=== PATIENT | male | born 1960 | race African-American/Black ===

== ENCOUNTER 2020-05-02 08:35 | Outpatient (REF) | payer OTHER, SELFPAY | END 2020-05-02 08:36 | disposition home or self-care (01) | LOC: HO.HMGCLDS 08:35 | PROVIDERS: Visit Provider Internal Medicine | DX: Z20.828 Contact with and (suspected) exposure to other viral communicable diseases (principal) | CPT/HCPCS: C9803; U0003 ==

== ENCOUNTER 2020-07-27 08:19 | Outpatient (REF) | payer OTHER, SELFPAY ==
[2020-07-27 09:25] LABS: MANUAL DIFF FLAG NO
[2020-07-27 09:33] LABS: Basophils Percent Auto 0.3 % (0-2); Eosinophils Absolute Auto 0.1 X10*3/uL (0.0-0.4); Eosinophils Percent Auto 1.5 % (0-4); Hematocrit 38.4 % (42-52); Hemoglobin 12.9 g/dl (14.0-18.0); Imm Gran Abs Auto 0.01 X10*3/uL (0.00-0.03); Imm Gran Pct Auto 0.2 % (0.0-0.4); Lymphocytes Absolute Auto 2.6 X10*3/uL (1.2-4.9); Lymphocytes Percent Auto 41.6 % (20-40); Mean Corpuscular HGB Conc 33.6 g/dl (31.0-36.0); Mean Corpuscular Hemoglobin 27.3 pg (27.0-33.0); Mean Corpuscular Volume 81.2 fL (80-98); Mean Platelet Volume 10.8 fL (9.4-12.4); Monocytes Absolute Auto 0.5 X10*3/uL (0.1-1.2); Monocytes Percent Auto 8.7 % (2-11); Neutrophils Percent Auto 47.7 % (45-73); Platelet Count 207 X10*3/uL (160-400); Red Blood Count 4.73 X10*6/uL (4.60-5.80); Red Cell Distribution Width 13.9 % (11.0-16.0); White Blood Count 6.2 X10*3/uL (4.8-10.8)
[2020-07-27 09:42] LABS: Estimated Average Glucose 298 mg/dL
[2020-07-27 09:57] LABS: Anion Gap 12 (12-20); Blood Urea Nitrogen 15 mg/dL (9-16); Carbon Dioxide 29 mmol/L (22-29); Chloride 101 mmol/L (96-108); Estimated Glomerular Filt Rate 54; Glucose Fasting 293 mg/dL (60-99); Potassium 4.1 mmol/L (3.3-5.1); Sodium 138 mmol/L (135-145)
[2020-07-27 10:23] LABS: Creatinine Urine 147.97 mg/dL
== END 2020-07-27 08:20 | disposition home or self-care (01) ==
LOC: HO.LAB 08:19
PROVIDERS: PCP Family Medicine; Visit Provider Family Medicine
DX: I10 Essential (primary) hypertension (principal); E11.9 Type 2 diabetes mellitus without complications; D57.3 Sickle-cell trait; D75.89 Other specified diseases of blood and blood-forming organs
CPT/HCPCS: 36415; 80051; 82043; 82550; 82565; 82947; 83036; 84520; 85025

== ENCOUNTER 2020-09-06 05:57 | Outpatient (REF) | payer OTHER, SELFPAY ==
[2020-09-06 08:00] LABS: Estimated Average Glucose 258 mg/dL; Hemoglobin A1c % 10.6 %
[2020-09-06 08:23] LABS: Cholesterol 173 mg/dL; Glucose Fasting 152 mg/dL (60-99); HDL Cholesterol 29 mg/dL; LDL Cholesterol Calculated 121 mg/dl; Triglycerides 117 mg/dL
== END 2020-09-06 05:58 | disposition home or self-care (01) ==
LOC: HO.LAB 05:57
PROVIDERS: PCP Family Medicine; Visit Provider Family Medicine
DX: E11.9 Type 2 diabetes mellitus without complications (principal); E78.00 Pure hypercholesterolemia, unspecified
CPT/HCPCS: 36415; 80061; 82947; 83036

== ENCOUNTER 2020-10-28 07:07 | Emergency (ER) | payer OTHER, SELFPAY ==
--- NOTE | ~2020-10-28 | US_ITS ---
EXAMINATION: US SOFT TISSUE AXILLA CLINICAL INFORMATION: Right axilla mass. COMPARISON: None TECHNIQUE: Horowitz-scale and color imaging of the right axilla. FINDINGS: There are several right axillary lymph nodes. These are normal in size. The largest measures 2.3 x 1.2 x 1.4 cm. These demonstrate normal ultrasound morphology and flow. US/US soft tiss head and/or neck IMPRESSION: Palpable abnormality corresponds to right axillary lymphadenopathy.
[2020-10-28 07:43] VITALS: BP 143/70; PULSE 68; RESP 18; TEMP 36.6; O2SAT 99; BMI 33.0
--- NOTE | 2020-10-28 07:53 | ED.GENADULT ---
HPI - General Adult General Chief complaint: Skin/Abscess/Foreign Body Stated complaint: ARM PAIN,RASH Time Seen by Provider: 10/28/20 07:46 Source: patient Mode of arrival: ambulatory Limitations: no limitations History of Present Illness HPI narrative: 60 years old male came in for evaluation of right armpit swelling and pain. Swelling and pain in his right armpit started yesterday, patient woke up this morning with a rash on the right arm and right chest wall and right upper back dose rash are itchy but not painful. Patient otherwise declined fever, chills, headache, blurry vision. Related Data Previous Rx's Medication Instructions Recorded gabapentin 100 mg PO TID #14 cap 10/28/20 prednisone 20 mg PO BID #10 tab 10/28/20 valacyclovir [Valtrex] 1,000 mg PO TID #21 tab 10/28/20 Allergies Allergy/AdvReac Type Severity Reaction Status Date / Time No Known Allergies Allergy Verified 10/28/20 07:47 Review of Systems Review of Systems: All other systems are reviewed and are negative Constitutional: Reports as per HPI and Reports no additional constitutional complaints Eyes: Reports as per HPI and Reports no additional eye complaints Reports system reviewed and no additional complaints, except as documented Cardiovascular: Reports as per HPI and Reports no additional cardiovascular complaints Respiratory: Reports as per HPI and Reports no additional respiratory complaints Gastrointestinal: Reports as per HPI and Reports no additional gastrointestinal complaints Genitourinary: Reports no additional female genitourinary complaints Musculoskeletal: Reports no additional musculoskeletal complaints Skin/Breast: Reports system reviewed and no additional complaints, except as docu Psychiatric: Reports no additional psychiatric complaints Endocrine: Reports no additional endocrine complaints Hematologic/Lymphatic: Reports no additional hematologic/lymphatic complaints Allergic/Immunologic: Reports no additional allergic/immunologic complaints Reports system reviewed and no additional complaints, except as documented and Reports Abnormal speech present [facility] Social History Social History Advance Directives: No Advance Directives Information Provided: No Physical Exam Vital Signs: Vital Signs: Last Vital Signs Temp 97.9 F 10/28/20 07:43 Pulse 58 10/28/20 10:00 Resp 18 10/28/20 10:00 BP 134/75 10/28/20 10:00 Pulse Ox 98 10/28/20 10:00 Body Mass Index 33.0 Vital signs have been reviewed as appeared to be correct. Blood pressure normal. Heart rate normal. Respiration rate normal. Temperature normal. Oxygen saturation normal. Appearance: Alert. Oriented X3. No acute distress. Head: Normal external exam. Normocephalic. Atraumatic. No Ashley signs noted. No raccoon eyes noted Eyes: PERRLA. EOMI. Conjunctiva and sclera normal. Eyelids normal. ENT: TM's Normal. Pharynx normal. Uvula midline. Moist mucous membranes. No trismus noted. No drooling noted. No muffled voice noted. Neck: Normal inspection. Neck supple. FROM. No adenopathy. Thyroid Normal. No meningeal signs. No neck mass noted. CVS: Normal heart rate and rhythm. Heart sound normal. No murmurs noted. Pulses normal throughout. Respiratory: No respiratory distress. Painless inspiration. Breath sounds normal. No wheezes/rales/rhonchi noted. Chest nontender. No accessory muscle usage noted or decreased air movement noted. Abdomen: Soft and nontender. Bowel sounds normal in all 4 quadrants. No distention noted. No organomegaly noted. No visible injury noted. Back: No CVA tenderness. Full range of motion noted. Skin: Clusters of small maculopapular/vescicular rash is only confined to right chest wall do not cross the midline on the right arm and right upper back, rashes on erythematous base. Extremities: Right arm pit area 2 x 3 cm of subcutaneous mass which is soft in consistency, no fluctuation is appreciated skin over it no erythema or drainage, no foreign body is palpated. Neuro: Oriented X 3. No motor deficit. No sensory deficit. Reflexes normal. Course Course Course Narrative: A/P 60-year-old male diabetic came in with physical exam consistent with shingles on right chest wall symptoms started less than a day ago the patient will benefit from antiviral infection, prednisone, and gabapentin to control pain. Patient was instructed to follow up his sugar and blood pressure while he is on prednisone. Medical Decision Making Imaging Data Right axillary ultrasound: Radiologist's impression: Palpable abnormality corresponds to right axillary lymphadenopathy. Discharge Plan Discharge Clinical Impression: Shingles rash Qualifiers: Herpes zoster complications: without complications Qualified Code(s): B02.9 - Zoster without complications Patient Disposition: Home, Self-Care Instructions: Shingles (ED) Prescriptions: New valacyclovir [Valtrex] 1 gram tablet 1,000 mg PO TID Qty: 21 RF: 0 gabapentin 100 mg capsule 100 mg PO TID Qty: 14 RF: 0 prednisone 20 mg tablet 20 mg PO BID Qty: 10 RF: 0 Referrals: Gage Wynn MD [Primary Care Provider] - 2 days Stand Alone Forms: Work/School Release
[2020-10-28 10:00] VITALS: BP 134/75; PULSE 58; RESP 18; O2SAT 98
== END 2020-10-28 12:57 | disposition home or self-care (01) ==
PROVIDERS: Emergency Provider Emergency Medicine; PCP Family Medicine
DX: B02.9 Zoster without complications (principal); M79.621 Pain in right upper arm; R22.31 Localized swelling, mass and lump, right upper limb; E11.9 Type 2 diabetes mellitus without complications
CPT/HCPCS: 76536; 99283; 99284

== ENCOUNTER 2020-12-21 12:34 | Outpatient (REF) | payer OTHER, SELFPAY ==
[2020-12-21 14:40] LABS: Estimated Average Glucose 169 mg/dL; Hemoglobin A1c % 7.5 %
[2020-12-21 14:49] LABS: Anion Gap 13 (12-20); Blood Urea Nitrogen 13 mg/dL (9-16); Carbon Dioxide 27 mmol/L (22-29); Chloride 106 mmol/L (96-108); Estimated Glomerular Filt Rate 58; Glucose Fasting 111 mg/dL (60-99); Potassium 4.3 mmol/L (3.3-5.1); Sodium 142 mmol/L (135-145)
== END 2020-12-21 12:35 | disposition home or self-care (01) ==
LOC: HO.HMGCLDS 12:34
PROVIDERS: PCP Family Medicine; Visit Provider Family Medicine
DX: E11.9 Type 2 diabetes mellitus without complications (principal); I10 Essential (primary) hypertension
CPT/HCPCS: 36415; 80051; 82565; 82947; 83036; 84520

== ENCOUNTER 2021-06-27 09:44 | Outpatient (REF) | payer OTHER, SELFPAY ==
[2021-06-27 10:44] LABS: Binax Internal Control QC Valid; Binax Lot number: 9864; Binax Now Covid-19 Ag Negative (Negative)
== END 2021-06-27 09:45 | disposition home or self-care (01) ==
LOC: HO.LAB 09:44
PROVIDERS: Visit Provider Internal Medicine
DX: Z20.822 Contact with and (suspected) exposure to COVID-19 (principal)
CPT/HCPCS: C9803

== ENCOUNTER 2021-07-05 08:05 | Outpatient (REF) | payer OTHER, SELFPAY ==
[2021-07-05 08:29] LABS: MANUAL DIFF FLAG NO
[2021-07-05 08:30] LABS: Basophils Percent Auto 0.3 % (0-2); Eosinophils Absolute Auto 0.1 X10*3/uL (0.0-0.4); Eosinophils Percent Auto 1.5 % (0-4); Hematocrit 38.5 % (42.0-52.0); Hemoglobin 12.9 g/dl (14.0-18.0); Imm Gran Abs Auto 0.01 X10*3/uL (0.00-0.03); Imm Gran Pct Auto 0.1 % (0.0-0.4); Lymphocytes Absolute Auto 2.9 X10*3/uL (1.2-4.9); Lymphocytes Percent Auto 43.3 % (20-40); Mean Corpuscular HGB Conc 33.5 g/dl (31.0-36.0); Mean Corpuscular Hemoglobin 27.3 pg (27.0-33.0); Mean Corpuscular Volume 81.6 fL (80.0-98.0); Mean Platelet Volume 10.2 fL (9.4-12.4); Monocytes Absolute Auto 0.5 X10*3/uL (0.1-1.2); Monocytes Percent Auto 7.3 % (2-11); Neutrophils Absolute Auto 3.2 x10*3/uL (2.0-8.3); Neutrophils Percent Auto 47.5 % (45-73); Platelet Count 182 X10*3/uL (160-400); Red Blood Count 4.72 X10*6/uL (4.60-5.80); Red Cell Distribution Width 14.4 % (11.0-16.0); White Blood Count 6.7 X10*3/uL (4.8-10.8)
[2021-07-05 08:49] LABS: Anion Gap 11 (12-20); Blood Urea Nitrogen 13 mg/dL (9-16); Carbon Dioxide 27 mmol/L (22-29); Chloride 104 mmol/L (96-108); Estimated Glomerular Filt Rate 51; Glucose Fasting 228 mg/dL (60-99); Potassium 4.1 mmol/L (3.3-5.1); Sodium 138 mmol/L (135-145)
[2021-07-05 08:51] LABS: Estimated Average Glucose 214 mg/dL; Hemoglobin A1c % 9.1 %
== END 2021-07-05 08:06 | disposition home or self-care (01) ==
LOC: HO.LAB 08:05
PROVIDERS: Visit Provider Family Medicine
DX: I10 Essential (primary) hypertension (principal); E11.9 Type 2 diabetes mellitus without complications; D57.3 Sickle-cell trait
CPT/HCPCS: 36415; 80051; 82565; 82947; 83036; 84520; 85025

== ENCOUNTER 2021-07-09 10:18 | Outpatient (REF) | payer OTHER, SELFPAY ==
--- NOTE | ~2021-07-09 | XR_ITS ---
EXAMINATION: XR CHEST CLINICAL INFORMATION: SOB COMPARISON: None TECHNIQUE: 2 views of the chest were obtained. FINDINGS: No significant abnormality is noted involving the heart, lungs, mediastinum, bony thorax or soft tissues. XR/XR chest 2V IMPRESSION: Unremarkable chest examination.
== END 2021-07-09 10:19 | disposition home or self-care (01) ==
LOC: HO.XRAY 10:18
PROVIDERS: PCP Family Medicine; Visit Provider Internal Medicine
DX: R06.02 Shortness of breath (principal); E11.8 Type 2 diabetes mellitus with unspecified complications; I10 Essential (primary) hypertension; Z79.899 Other long term (current) drug therapy; Z79.84 Long term (current) use of oral hypoglycemic drugs
CPT/HCPCS: 71046; 93005

== ENCOUNTER → 2021-09-08 07:12 | Outpatient (REF) | payer OTHER, SELFPAY ==
--- NOTE | ~2021-09-08 | NM_ITS ---
EXERCISE MYOCARDIAL PERFUSION STUDY INDICATION: Chest pain, assess for coronary disease and ischemia TECHNIQUE: The patient was brought in for an exercise perfusion study on 09/08/2021. Patient performed exercise as per Raphael protocol and was injected 35 mCi of sestamibi once target heart rate was achieved. Images were obtained using the SPECT gamma camera interlaced with the gating device. Images were obtained in supine position. Resting perfusion study was performed on 09/10/2021. Patient was administered 35 mCi of sestamibi intravenously at rest. Images were then obtained in supine position. Total DLP 95mGy-cm. Images were processed with the software and compared side to side in short axis, horizontal long axis and vertical long axis views. FINDINGS: Raw images were reviewed. The stress perfusion study showed no significant perfusion abnormality. Both uncorrected as well as CT attenuation corrected images were reviewed. The gated study shows normal LV systolic function with calculated LVEF of 57%. LV cavity is normal in size. The gated study shows normal wall thickening and contraction of segments. Resting study shows no significant perfusion abnormality. Gating at rest reveals normal wall motion with ejection fraction at 59%. The findings are consistent with no definite reversible or fixed defects. NM/NM cardiolite stress test IMPRESSION: 1. Myocardial perfusion imaging study shows no evidence of any ischemia or infarction. Likely normal perfusion. 2. Gated LVEF is 57% during stress and 59% during rest. 3. Transient ischemic dilatation not present. EKG component of the test reported separately.
--- NOTE | 2021-09-08 07:16 | CA_ITS ---
Transthoracic Echocardiogram Patient (Last, First, Middle): Maycol Gracia L Gender: Male Date of : 1960 Age: 61 Procedure Date: 09/08/2021 Procedure Type: Transthoracic Echocardiogram Location: OP Height: 177.8 cm Weight: 102.51 kg BSA: 2.20 m2 Heart Rate: bpm BP: 122 / 60 mmHg Slumber Room Attendant: Referring MD: Hector Hightower MD Symptoms: R06.02 - Shortness of breath Study Quality: Fair ECG Rhythm: Sinus Conclusions: - The left ventricular systolic function is normal. The calculated ejection fraction is 58% by biplane method. - There is moderately increased left ventricular wall thickness. - The basal inferior segment is hypokinetic. - There is mild calcification of the aortic valve. Findings Left Ventricle Normal left ventricular cavity size. There is moderately increased left ventricular wall thickness. The left ventricular systolic function is normal. The calculated ejection fraction is 58% by biplane method. There is no evidence of regional wall motion abnormalities. Diastolic function is normal for age. Wall Motion Rest Echo Findings The basal inferior segment is hypokinetic. Atria Both atria are normal in size. Aortic Valve There is mild calcification of the aortic valve. There is no aortic valve stenosis. There is no aortic valve regurgitation. Cannot exclude bicuspid valve vs just calcification. Mitral Valve The mitral valve appears normal. There is no mitral valve regurgitation. There is no mitral valve stenosis. Pulmonic Valve The pulmonic valve was not well visualized. Tricuspid Valve Normal tricuspid valve structure. There is trace tricuspid valve regurgitation. The pulmonary artery systolic pressure is normal. Great Vessels The sinuses of valsalva, asc aorta, and aortic arch are normal in size. Venous The inferior vena cava is normal in size. There is evidence of a dilated coronary sinus. Pericardium/Pleural There is no evidence of pericardial effusion. Prior Study Comparison Changes noted compared to prior study dated: 09/16/2017. Progression of LVH. Aortic valve trileaflet in prior study. Inferior wall better visualized in current study. Measurements 2D Linear Measurements IVSd: 1.41 0.6-0.9/0.6-1.0 cm LVIDd: 3.97 3.9-5.3/4.2-5.9 cm LVIDd Index: 1.80 2.4-3.2/2.2-3.1 cm/m2 LVIDs: 2.48 2.0-3.6 cm LVPWd: 1.37 0.7-1.1 cm Ao Root: 3.00 2.1-3.5 cm LA Diam: 4.10 2.7-3.8/3.0-4.0 cm LAIDs Index: 1.86 1.5-2.3 cm/m2 LV Mass: 254.78 67-162/88-224 g LV Mass Index: 115.81 43-95/49-115 g/m2 LVOT Diam: 2.20 3.0+(-)1.3 cm 2D Systolic Function EF 4C: 52.30 >55% EF 2C: 63.50 >55% EF BiP: 58.10 >55% Mitral Valve MV Pk E: 0.63 MV PK A: 0.72 MV Decel Time: 177.00 E/A: 0.90 E'Lateral: 7.40 E'Medial: 8.05 E/E' Med: 7.80 E/E' Lat: 8.50 PHT: 52.00 MVA PHT: 4.23 Decel Rawlins: 3.55 Aortic Valve AoV Pk Wallace: 1.72 AoV Mn Wallace: 1.21 AoV VTI: 0.40 AoV Pk Grad: 12.00 Aov Mn Grad: 7.00 ALMA Cont.VTI: 2.30 LVOT LVOT Pk Wallace: 1.07 LVOT Mn Wallace: 0.72 LVOT VTI: 0.24 LVOT Pk Grad: 5.00 LVOT Mn Grad: 2.00 LVOT Diam: 2.20 LVOT Area: 3.80 Diastolic Function MV Pk E: 0.63 MV Pk A: 0.72 E/A: 0.90 E'Medial: 8.05 E/E' Med: 7.80 E' Laterial: 7.40 E/E' Lat: 8.50 Right Ventricle TAPSE (mm): 2.80 TVS' Walalce: 11.50 Tricuspid Valve TR Pk Wallace: 1.77 TR Pk Grad: 13.00 RA Press: 3.00 RVSP: 15.00 Great Vessels Aorta Ao Root-2D: 3.00 2.0-3.7 cm Sinus of Valsalva: 2.80 2.0-3.5 cm Pulmonary Valve PV Pk Wallace: 0.95 Peak PV Grad: 4.00 Updated in Other Vendor System with Status of Final Hector Hightower MD electronically signed on 09/08/2021 11:03:56 AM with status of Final
--- NOTE | 2021-09-08 07:16 | CA_ITS ---
Acquisition Time: 2021-09-08 08:23:16 Total Exercise Time: 00:05:01 Test Indications: CP, SOB Medications: SEE CHART Protocol: ALBA Max HR: 148 BPM 91% of Pred: 161 BPM Max BP: 148/088 mmHG Max Work Load: 7.0 METS Exercise stress test with exercise 5 min 1 sec of Alba protocol, achieving 91% MPHR, 6.9 METs with moderate shortness of breath, no chest discomfort, with frequent PVCs in stage 2 of exercise, with normotensive response to exercise, with EKG changes meeting criteria for ischemia: at least [address] depression inferiorly, V4-V6, then with T wave inversions in those leads in recovery with gradual improvement. Breathing quickly improved with rest. Nuclear images pending. Test reviewed with Dr Hightower. Referred By: Hector Hightower Overread By: CALEB COCHRAN
== END ==
LOC: HO.CARD 07:12
PROVIDERS: Visit Provider Internal Medicine
DX: R06.02 Shortness of breath (principal)
CPT/HCPCS: 78452; 93017; 93306; A9500

== ENCOUNTER → 2021-09-18 08:06 | Outpatient (BNVA) | payer OTHER, SELFPAY | PROVIDERS: PCP Family Medicine; Referring Provider Family Medicine; Visit Provider Internal Medicine | DX: Z13.89 Encounter for screening for other disorder (principal) ==

== ENCOUNTER 2021-11-21 06:02 | Outpatient (REF) | payer OTHER, SELFPAY ==
[2021-11-21 07:51] LABS: Anion Gap 12 (12-20); Blood Urea Nitrogen 17 mg/dL (9-16); Calcium 9.6 mg/dL (8.4-10.2); Carbon Dioxide 27 mmol/L (22-29); Chloride 103 mmol/L (96-108); Estimated Glomerular Filt Rate 49; Glucose Random 245 mg/dL (60-115); Potassium 4.2 mmol/L (3.3-5.1); Sodium 138 mmol/L (135-145)
[2021-11-21 07:56] LABS: Creatinine Urine 169.32 mg/dL; Estimated Average Glucose 214 mg/dL; Hemoglobin A1c % 9.1 %; Microalbumin Urine < 5.0 mg/L
== END 2021-11-21 06:03 | disposition home or self-care (01) ==
LOC: HO.LAB 06:02
PROVIDERS: Absent Provider Internal Medicine; PCP Family Medicine; Visit Provider Family Medicine
DX: I25.10 Atherosclerotic heart disease of native coronary artery without angina pectoris (principal); I10 Essential (primary) hypertension; E11.9 Type 2 diabetes mellitus without complications
CPT/HCPCS: 36415; 80048; 82043; 83036

== ENCOUNTER 2022-03-11 06:00 | Outpatient (REF) | payer OTHER, SELFPAY ==
[2022-03-11 07:45] LABS: Estimated Average Glucose 180 mg/dL; Hemoglobin A1c % 7.9 %
[2022-03-11 07:57] LABS: Alanine Aminotransferase 29 U/L (0-40); Anion Gap 15 (12-20); Aspartate Amino Transferase 23 U/L (5-37); Blood Urea Nitrogen 15 mg/dL (9-16); Carbon Dioxide 26 mmol/L (22-29); Chloride 102 mmol/L (96-108); Estimated Glomerular Filt Rate 53; Glucose Fasting 175 mg/dL (60-99); Iron 71 mcg/dL (45-160); Percent Iron Saturation 22 % (15-50); Potassium 4.5 mmol/L (3.3-5.1); Sodium 138 mmol/L (135-145); Total Iron Binding Capacity 325 mcg/dL (228-428); Unsaturated Iron Binding 254 ug/dL
== END 2022-03-11 06:01 | disposition home or self-care (01) ==
LOC: HO.LAB 06:00
PROVIDERS: PCP Family Medicine; Visit Provider Family Medicine
DX: I10 Essential (primary) hypertension (principal); K75.81 Nonalcoholic steatohepatitis (NASH); D64.9 Anemia, unspecified; E11.9 Type 2 diabetes mellitus without complications; R79.89 Other specified abnormal findings of blood chemistry
CPT/HCPCS: 36415; 80051; 82550; 82565; 82947; 83036; 83540; 84450; 84460; 84520

== ENCOUNTER 2022-06-30 09:42 | Outpatient (REF) | payer OTHER, SELFPAY ==
[2022-06-30 13:50] LABS: Alanine Aminotransferase 32 U/L (0-40); Anion Gap 12 (12-20); Blood Urea Nitrogen 17 mg/dL (9-16); Carbon Dioxide 28 mmol/L (22-29); Chloride 101 mmol/L (96-108); Estimated Glomerular Filt Rate 52; Glucose Fasting 288 mg/dL (60-99); Potassium 4.2 mmol/L (3.3-5.1); Sodium 137 mmol/L (135-145)
== END 2022-06-30 09:43 | disposition home or self-care (01) ==
LOC: HO.HMGCLDS 09:42
PROVIDERS: PCP Family Medicine; Visit Provider Family Medicine
DX: Z13.89 Encounter for screening for other disorder (principal)
CPT/HCPCS: 36415; 80051; 82550; 82565; 82947; 84460; 84520

== ENCOUNTER → 2022-07-14 14:15 | Outpatient (BNVA) | payer OTHER, SELFPAY | PROVIDERS: PCP Family Medicine; Referring Provider Family Medicine; Visit Provider Internal Medicine | DX: I25.10 Atherosclerotic heart disease of native coronary artery without angina pectoris (principal) | CPT/HCPCS: 93005 ==

== ENCOUNTER 2022-08-10 14:29 | Outpatient (REF) | payer OTHER, SELFPAY ==
[2022-08-10 16:01] LABS: Hematocrit 37.2 % (42.0-52.0); Hemoglobin 12.6 g/dl (14.0-18.0); Mean Corpuscular HGB Conc 33.9 g/dl (31.0-36.0); Mean Corpuscular Hemoglobin 27.6 pg (27.0-33.0); Mean Corpuscular Volume 81.6 fL (80.0-98.0); Mean Platelet Volume 10.8 fL (9.4-12.4); Platelet Count 201 X10*3/uL (160-400); Red Blood Count 4.56 X10*6/uL (4.60-5.80); Red Cell Distribution Width 14.3 % (11.0-16.0); White Blood Count 6.5 X10*3/uL (4.8-10.8)
[2022-08-10 16:06] LABS: INTERNATIONAL NORM RATIO 1.1 (0.9-1.1); Prothrombin Time 12.3 SEC (10.0-13.1)
[2022-08-10 16:24] LABS: Anion Gap 12 (12-20); Blood Urea Nitrogen 17 mg/dL (9-16); Calcium 9.3 mg/dL (8.4-10.2); Carbon Dioxide 29 mmol/L (22-29); Chloride 101 mmol/L (96-108); Estimated Glomerular Filt Rate 47; Glucose Random 225 mg/dL (60-115); Sodium 138 mmol/L (135-145)
== END 2022-08-10 14:30 | disposition home or self-care (01) ==
LOC: HO.LAB 14:29
PROVIDERS: PCP Family Medicine; Visit Provider Internal Medicine
DX: I25.10 Atherosclerotic heart disease of native coronary artery without angina pectoris (principal)
CPT/HCPCS: 36415; 80048; 85027; 85610

== ENCOUNTER → 2022-08-28 13:36 | Outpatient (BNVA) | payer OTHER, SELFPAY | PROVIDERS: PCP Family Medicine; Referring Provider Family Medicine; Visit Provider Nurse Practitioner Family | DX: Z13.89 Encounter for screening for other disorder (principal) ==

== ENCOUNTER → 2022-11-17 14:21 | Outpatient (BNVA) | payer OTHER, SELFPAY | PROVIDERS: PCP Family Medicine; Referring Provider Family Medicine; Visit Provider Internal Medicine ==

== ENCOUNTER 2022-12-03 06:06 | Outpatient (REF) | payer OTHER, SELFPAY ==
[2022-12-03 08:07] LABS: Alanine Aminotransferase 24 U/L (0-40); Aspartate Amino Transferase 22 U/L (5-37); Cholesterol 109 mg/dL; Glucose Fasting 242 mg/dL (60-99); HDL Cholesterol 26 mg/dL; LDL Cholesterol Calculated 63 mg/dl; Triglycerides 103 mg/dL
[2022-12-03 08:12] LABS: Creatinine Urine 163.93 mg/dL; Microalbumin Urine < 5.0 mg/L
[2022-12-03 10:43] LABS: Estimated Average Glucose 206 mg/dL; Hemoglobin A1c % 8.8 %
== END 2022-12-03 06:07 | disposition home or self-care (01) ==
LOC: HO.LAB 06:06
PROVIDERS: PCP Family Medicine; Visit Provider Family Medicine
DX: E11.9 Type 2 diabetes mellitus without complications (principal); E78.00 Pure hypercholesterolemia, unspecified; Z79.899 Other long term (current) drug therapy
CPT/HCPCS: 36415; 80061; 82043; 82550; 82947; 83036; 84450; 84460

== ENCOUNTER 2023-02-13 06:58 | Outpatient (REF) | payer OTHER, SELFPAY ==
[2023-02-13 08:05] LABS: Estimated Average Glucose 177 mg/dL; Hemoglobin A1c % 7.8 % (<6.0)
[2023-02-13 08:26] LABS: Anion Gap 14 (12-20); Blood Urea Nitrogen 19 mg/dL (9-16); Carbon Dioxide 24 mmol/L (22-29); Chloride 107 mmol/L (96-108); Cholesterol 121 mg/dL (<200); Estimated Glomerular Filt Rate 57; Glucose Fasting 153 mg/dL (60-99); HDL Cholesterol 30 mg/dL (>40); LDL Cholesterol Calculated 76 mg/dL (<100); Potassium 3.9 mmol/L (3.3-5.1); Sodium 141 mmol/L (135-145); Triglycerides 76 mg/dL (<150)
[2023-02-13 08:50] LABS: Erythrocyte Sedimentation Rate 7 MM/HR (0-15)
[2023-02-13 09:37] LABS: Folate 10.1 ng/mL (> or = 4.0); Vitamin B12 434 pg/mL (200-900)
[2023-02-13 10:37] LABS: Thyroid Stimulating Hormone 1.08 uIU/mL (0.32-4.0)
[2023-02-13 14:02] LABS: Free T4 (Free Thyroxine) 0.82 ng/dL (0.71-1.85)
[2023-02-16 21:14] LABS: Antibody to SS-A Antigen <1.0 NEG AI (<1.0 NEG); Antibody to SS-B Antigen <1.0 NEG AI (<1.0 NEG)
[2023-02-17 14:48] LABS: Anti Nuclear Antibody Screen NEGATIVE (NEGATIVE)
== END 2023-02-13 06:59 | disposition home or self-care (01) ==
LOC: HO.LAB 06:58
PROVIDERS: PCP Family Medicine; Visit Provider Family Medicine
DX: E78.5 Hyperlipidemia, unspecified (principal); I25.10 Atherosclerotic heart disease of native coronary artery without angina pectoris; I10 Essential (primary) hypertension; E11.9 Type 2 diabetes mellitus without complications; D64.9 Anemia, unspecified
CPT/HCPCS: 36415; 80051; 80061; 82565; 82607; 82746; 82947; 83036; 84439; 84443; 84520; 85652; 86038; 86235

== ENCOUNTER 2023-02-26 08:09 | Outpatient (AMB) | payer OTHER, SELFPAY ==
--- NOTE | 2023-02-26 09:02 | MHC.OFFWIV ---
Intake Vital Signs 02/26/23 09:03 Height 5 ft 10 in Weight 99.79 kg BMI 31.6 BP 120/90 H Blood Pressure Location Lt brachial Position Sitting Pulse 80 Pulse Source Pulse Oximeter Temp 97.6 F Temp Source Temporal Artery Scan Pulse Oximetry (%) 98 Oxygen Delivery Method Room Air Intake Visit Reasons: [employer] Cough, Congestion (masked) Intake Note: Patient here for a cough that has been present for about 1 week. Pt states he does not have any other symptoms besides the cough. Patient Tobacco Use Status: Never used Tobacco Allergies No Known Allergies Allergy (Verified 02/26/23 09:06) Do you need a note to return to daycare/school/sports/work: No HPI HPI Comments History of Present Illness Details 922 62-year-old male history of hyperlipidemia, LVH, diabetes, hypertension, cardiac catheterization on Plavix and aspirin presenting to the clinic for evaluation of dry cough present for the past week. Cough is on comfortable in intermittent in nature. No recent sick contacts. Denies fevers, chills, chest pain, shortness of breath, nausea, vomiting, abdominal pain, headache, vision changes, dizziness, weakness, ear pain, sore throat. Physical exam unremarkable. Likely viral illness versus bronchitis. Unlikely PE, patient is not hypoxic, tachycardic or tachypneic. Unlikely ACS. No signs of flail chest, respiratory distress or pneumothorax. My plan was to do a viral test to see whether not patient had flu/COVID/RSV, he tells me he knows his body and he sure it is not any of these so he is refusing testing. He tells me he is just having a cough. I explained him he should follow-up with PCP. Not much more I can do for him in urgent care. No signs of respiratory distress to be discharged home with supportive measures likely viral illness. Educated patient on diagnosis and treatment plan, answered all question, patient verbalizes understanding. At this time patient will be discharged home, advised to return with new or worsening symptoms. Educated on worrisome signs and symptoms and when to return. At this time I feel comfortable discharge home. [facility] Medical History Essential hypertension Type 2 diabetes mellitus with unspecified complications Surgical History Hx of cardiac cath H/O shoulder surgery Family History Father No problems noted. Mother No problems noted. Social History Alcohol intake: current Alcohol intake frequency: a few times a week Patient Tobacco Use Status: Never used Tobacco Review of Systems Const Details: Constitutional : No Weight loss, No Fever, No Chills, No Fatigue, No Malaise ENT/Mouth : No sore throat, No Rhinorrhea Eyes: No Eye Pain, No Swelling, No Redness Cardiovascular : No Chest Pain, No SOB, No Dyspnea on Exertion, No Orthopnea, No Edema, No Palpitations Respiratory : + Cough, No Sputum, No Wheezing Gastrointestinal : No Nausea, No Vomiting, No Diarrhea, No Constipation, No abdominal Pain, No Hematochezia, No Melena Genitourinary : No Dysuria, No Urinary Frequency, No Hematuria, Musculoskeletal : No joint pain, No Myalgias, No Joint Swelling Skin : No Skin Lesions, No rash Neuro : No Weakness, No Numbness, No Dizziness, No Headache Psych : No Anxiety/Panic, No Depression All other systems reviewed and are negative All systems reviewed & are unremarkable except as noted in HPI and below Physical Exam Vital Signs: Last Vital Signs Temp 97.6 F 02/26/23 09:03 Pulse 80 02/26/23 09:03 BP 120/90 H 02/26/23 09:03 Pulse Ox 98 02/26/23 09:03 Oxygen Delivery Method Room Air 02/26/23 09:03 BMI result Body Mass Index 31.6 Vital signs stable Appearance: Alert.? Oriented X3.? No acute distress.? Head: Normocephalic, atraumatic, no step-offs or deformities Eyes: Pupils equal, round and reactive to light.? CVS: Normal heart rate and rhythm.? Pulses normal.? Respiratory: No respiratory distress.? Breath sounds normal.? Abdomen: Soft and nontender.? Skin: Skin warm and dry.? Normal skin color.? Normal skin turgor.? Extremities: No lower extremity edema.? No calf ttp. 5/5 strength to bilateral upper and lower extremities Neuro: Oriented X 3.? No motor deficit.? No sensory deficit. CN 2-12 intact Assessment & Plan Assessment & Plan (1) Bronchitis: Code(s): J40 - Bronchitis, not specified as acute or chronic Plan Take your medications as prescribed. If you were prescribed antibiotics today, it is important that you take your medication to their entirety, do not skip any doses, do not finish them early. Follow-up with your primary care provider this week. Return to the emergency department with new or worsening symptoms. Such as fevers, chills, chest pain, shortness of breath, nausea, vomiting, dizziness, headache, vision changes, lethargy In case of emergency call 911 Orders: Orders SARS-CoV2/FLU/RSV Today B34.9 - Viral infection, unspecified Medications: New albuterol sulfate 90 mcg/actuation 2 puffs inhalation Q6H PRN 6.7 grams 0RF shortness of breath or wheezing Coding Level of Care Code Est Pt Level 3 (23310) Diagnoses Bronchitis J40
[2023-02-26 09:03] VITALS: BP 120/90; PULSE 80; TEMP 36.4; O2SAT 98; BMI 31.6
== END 2023-02-26 12:47 | disposition home or self-care (01) ==
PROVIDERS: PCP Family Medicine; Visit Provider Physician Assistant
DX: J40 Bronchitis, not specified as acute or chronic (principal)
CPT/HCPCS: 99213

== ENCOUNTER 2023-04-10 06:31 | Outpatient (REF) | payer OTHER, SELFPAY ==
[2023-04-10 11:31] LABS: Alanine Aminotransferase 31 U/L (0-40); Anion Gap 13 (12-20); Aspartate Amino Transferase 25 U/L (5-37); Blood Urea Nitrogen 16 mg/dL (9-16); Carbon Dioxide 26 mmol/L (22-29); Chloride 104 mmol/L (96-108); Cholesterol 139 mg/dL (<200); Estimated Glomerular Filt Rate 50; Glucose Fasting 176 mg/dL (60-99); HDL Cholesterol 29 mg/dL (>40); LDL Cholesterol Calculated 90 mg/dL (<100); Potassium 4.4 mmol/L (3.3-5.1); Sodium 139 mmol/L (135-145); Triglycerides 100 mg/dL (<150)
[2023-04-10 11:41] LABS: Estimated Average Glucose 200 mg/dL; Hemoglobin A1c % 8.6 % (<6.0)
== END 2023-04-10 06:32 | disposition home or self-care (01) ==
LOC: HO.HMGCLDS 06:31
PROVIDERS: PCP Family Medicine; Visit Provider Family Medicine
DX: E11.9 Type 2 diabetes mellitus without complications (principal); I10 Essential (primary) hypertension; E78.00 Pure hypercholesterolemia, unspecified; Z79.899 Other long term (current) drug therapy
CPT/HCPCS: 36415; 80051; 80061; 82550; 82565; 82947; 83036; 84450; 84460; 84520

== ENCOUNTER 2023-05-26 14:34 | Outpatient (AMB) | payer OTHER, SELFPAY ==
[2023-05-26 14:36] VITALS: BP 140/80; PULSE 52; BMI 31.1
--- NOTE | 2023-05-26 14:36 | MHC.OFFVIS ---
Intake Vital Signs 05/26/23 14:36 05/26/23 15:02 Height 5 ft 10 in Weight 217 lb BMI 31.1 BP 140/80 H 132/78 Blood Pressure Location Lt brachial Lt brachial Position Sitting Sitting Pulse 52 Pulse Source Pulse Oximeter Intake Visit Reasons: follow up Intake Note: f/up pt its fine Foreign Language Interpreter Required: No Accompanied by: Self / Same As Patient Allergies No Known Allergies Allergy (Verified 02/26/23 09:06) Medication List - Last Reconciled 05/26/23 by Magui Hernandez NP aspirin 81 mg PO DAILY clopidogrel (Plavix) 75 mg PO DAILY metformin 500 mg PO DAILY pravastatin 10 mg PO DAILY valsartan-hydrochlorothiazide 160-25 mg 1 tab PO DAILY HPI HPI Comments History of Present Illness Details 63-year-old male here for a follow-up reports he is doing well. He works as a [employer] employee and has been tolerating it well. He has been going to the gym and running up the stairs without any concerns. He denies all symptoms. He is taking his blood thinner and reports no bleeding concerns. He is not on the PCSK9 due to his own refusal. He states he is doing well on the pravastatin. He reports he has reduced eating fried foods. He had underwent LAD stent back in August. [facility] Medical History Essential hypertension Type 2 diabetes mellitus with unspecified complications Surgical History Hx of cardiac cath H/O shoulder surgery Family History Father No problems noted. Mother No problems noted. Social History Alcohol intake: current Alcohol intake frequency: a few times a week Patient Tobacco Use Status: Never used Tobacco Review of Systems Const Denies chills, Denies fatigue, Denies fever(s), Denies frequent falls, Denies weakness, Denies weight gain and Denies weight loss ENT Denies dizziness Card Denies chest pain, Denies leg edema, Denies lightheadedness, Denies palpitations, Denies dyspnea and Denies dyspnea on exertion Resp Denies cough, Denies dyspnea and Denies dyspnea on exertion GI Denies hematochezia Musc Denies abnormal gait, Denies muscle weakness, Denies numbness, Denies radiating pain into limb and Denies tingling Neuro Denies abnormal gait, Denies dizziness, Denies frequent falls, Denies numbness, Denies tingling and Denies weakness Endo Denies fatigue and Denies palpitations Physical Exam Vital Signs: BMI result Body Mass Index 31.1 Const General: healthy appearing and no acute distress Orientation/consciousness: patient oriented x3 HEENT Head: Yes normal to inspection Eyes General: appearance normal, both eyes and all related structures Neck Neck: Yes normal visual inspection Chest Chest palpation & inspection: normal inspection of the chest Resp Effort & Inspection: normal respiratory effort Auscultation: clear to auscultation bilaterally Cardio Jugular venous distension: no JVD Palpation: normal PMI Rate: regular rate Rhythm: regular rhythm Heart sounds: S1 normal heart sound present, S2 normal heart sound present, no click, no gallops, no murmurs and no rubs GI Inspection: Yes normal to inspection Palpation (GI): Soft to palpation Skin General skin exam: no rashes or lesions noted Neuro General: patient oriented x3 Extrem General: Yes normal to inspection Psych Appearance: grossly normal Assessment & Plan Assessment & Plan (1) Hx of cardiac cath: Comment: 08/13/22 left main normal, mid LAD 85% stenosis, OM1 80% stenosis, left circumflex 40% stenosis, RCA normal, [place] placed to the mid LAD Code(s): Z98.890 - Other specified postprocedural states (2) Atherosclerotic cardiovascular disease: Code(s): I25.10 - Atherosclerotic heart disease of [place] coronary artery without angina pectoris (3) Type 2 diabetes mellitus with unspecified complications: Code(s): E11.8 - Type 2 diabetes mellitus with unspecified complications Plan Report any new or worsening symptoms - ED care if needed. Discussed the importance of his mediations, diabetes control, heart healthy diet, and exercise. ASA is indefinetly and Plavix is for one year post stent placement Medications: Refilled clopidogrel (Plavix) 75 mg PO DAILY 90 tabs 2RF Coding Level of Care Code Est Pt Level 3 (31982) Diagnoses Hx of cardiac cath Z98.890 Atherosclerotic cardiovascular disease I25.10 Type 2 diabetes mellitus with unspecified complications E11.8
[2023-05-26 15:02] VITALS: BP 132/78
== END 2023-05-26 14:58 | disposition home or self-care (01) ==
PROVIDERS: PCP Family Medicine; Visit Provider Nurse Practitioner
DX: Z98.890 Other specified postprocedural states (principal); I25.10 Atherosclerotic heart disease of native coronary artery without angina pectoris; E11.8 Type 2 diabetes mellitus with unspecified complications
CPT/HCPCS: 99213

== ENCOUNTER → 2023-05-26 14:34 | Outpatient (BNVA) | payer OTHER, SELFPAY | PROVIDERS: PCP Family Medicine; Visit Provider Nurse Practitioner ==

== ENCOUNTER 2023-08-02 07:15 | Outpatient (REF) | payer OTHER, SELFPAY ==
[2023-08-02 11:16] LABS: Estimated Average Glucose 206 mg/dL; Hemoglobin A1c % 8.8 % (<6.0)
[2023-08-02 11:21] LABS: Alanine Aminotransferase 26 U/L (0-40); Anion Gap 11 (12-20); Aspartate Amino Transferase 21 U/L (5-37); Blood Urea Nitrogen 15 mg/dL (9-16); Carbon Dioxide 27 mmol/L (22-29); Chloride 103 mmol/L (96-108); Cholesterol 178 mg/dL (<200); Estimated Glomerular Filt Rate 56; Glucose Fasting 210 mg/dL (60-99); HDL Cholesterol 32 mg/dL (>40); LDL Cholesterol Calculated 129 mg/dL (<100); Potassium 3.9 mmol/L (3.3-5.1); Sodium 137 mmol/L (135-145); Triglycerides 86 mg/dL (<150)
== END 2023-08-02 07:16 | disposition home or self-care (01) ==
LOC: HO.HMGCLDS 07:15
PROVIDERS: PCP Family Medicine; Visit Provider Family Medicine
DX: I10 Essential (primary) hypertension (principal); E78.00 Pure hypercholesterolemia, unspecified; E11.9 Type 2 diabetes mellitus without complications; Z79.899 Other long term (current) drug therapy
CPT/HCPCS: 36415; 80051; 80061; 82550; 82565; 82947; 83036; 84450; 84460; 84520

== ENCOUNTER 2023-11-24 14:32 | Outpatient (AMB) | payer OTHER, SELFPAY ==
--- NOTE | 2023-11-24 14:47 | MHC.OFFVIS ---
Vital Signs 11/24/23 14:48 Height 5 ft 10 in Weight 217 lb BMI 31.1 BP 158/80 H Blood Pressure Location Lt brachial Position Sitting Pulse 81 Pulse Source Monitor Intake Visit Reasons: 6 mth f/up AC Allergies No Known Allergies Allergy (Verified 02/26/23 09:06) Medication List - Last Reconciled 11/24/23 by Hector Hightower MD aspirin 81 mg PO DAILY metformin 500 mg PO DAILY valsartan-hydrochlorothiazide 160-25 mg 1 tab PO DAILY 90 days HPI Comments Details: Maycol returns for follow-up regarding coronary disease. Due to complaints of shortness of breath, he underwent further workup with echocardiogram, stress testing as well as coronary CTA. Eventually, also had cardiac catheterization as well as LAD stenting. He states that he no longer has any shortness of breath. No angina or in fact any other cardiac complaints. He states that he feels great. Otherwise, he has a history of high creatinine kinase levels. There has been an issue with statins but he does not want to take PCSK9 inhibitors either. [facility], LATER [facility] Medical History Essential hypertension Type 2 diabetes mellitus with unspecified complications Surgical History Hx of cardiac cath H/O shoulder surgery Family History Father No problems noted. Mother No problems noted. Social History Alcohol intake: current Alcohol intake frequency: a few times a week Patient Tobacco Use Status: Never used Tobacco Review of Systems Const Denies weakness ENT Denies dizziness Card Denies chest pain, Denies chest pain with activity, Denies syncope, Denies rapid heart rate, Denies pedal edema, Denies edema, Denies leg edema, Denies lightheadedness, Denies palpitations, Denies dyspnea, Denies dyspnea on exertion and Denies orthopnea Resp Denies cough, Denies dyspnea and Denies dyspnea on exertion GI Denies hematochezia and Denies change in stool character Musc Denies abnormal gait, Denies muscle cramps, Denies muscle weakness, Denies numbness, Denies radiating pain into limb and Denies tingling Neuro Denies abnormal gait, Denies dizziness, Denies syncope, Denies numbness, Denies tingling and Denies weakness Endo Denies palpitations Physical Exam Vital Signs: Last Vital Signs Pulse 81 11/24/23 14:48 BP 158/80 H 11/24/23 14:48 BMI result Body Mass Index 31.1 Const General: comfortable and no acute distress Orientation/consciousness: patient oriented x3 HEENT Other: Unremarkable Head: Yes normal to inspection Neck Neck: Yes normal visual inspection Chest Chest palpation & inspection: normal inspection of the chest Resp Auscultation: clear to auscultation bilaterally Cardio Palpation: normal PMI Heart sounds: S1 normal heart sound present, S2 normal heart sound present, no gallops, Murmur heart sound present systolic II/ and at the right sternal border and no rubs GI Palpation (GI): Soft to palpation Back/Spine/Pelvis Other: unremarkable Skin General skin exam: no rashes or lesions noted Neuro General: patient oriented x3 Extrem General: Yes normal to inspection Psych Mental Status: mental status grossly normal Office Procedures EKG Details: EKG with sinus rhythm at 61/Min; no significant ST-T changes and otherwise unremarkable[place] [id number], Complete Assessment & Plan Assessment & Plan (1) Atherosclerotic cardiovascular disease: Code(s): I25.10 - Atherosclerotic heart disease of [place] coronary artery without angina pectoris Category: Medical (2) Type 2 diabetes mellitus with unspecified complications: Code(s): E11.8 - Type 2 diabetes mellitus with unspecified complications Category: Medical (3) Essential hypertension: Code(s): I10 - Essential (primary) hypertension Category: Medical (4) LVH (left ventricular hypertrophy): Code(s): I51.7 - Cardiomegaly Category: Medical (5) High serum creatine kinase (CK): Code(s): R74.8 - Abnormal levels of other serum enzymes Category: Medical Plan Cardiac studies reviewed. In the echocardiogram, LVEF 58%. There was moderate left ventricular hypertrophy. Basal inferior segment appeared hypokinetic. Mild aortic valve calcification. In the EKG component of stress test, he exercised for 5 minutes on Raphael protocol and reached target heart rate. There was moderate shortness of breath but no chest discomfort. Frequent PVCs in stage II. There was EKG evidence of ischemia. But in the perfusion component, there was no ischemia or infarction. Coronary CTA reviewed. There was moderate stenosis in the proximal part of distal LAD. Moderate stenosis in the midcircumflex and obtuse marginal. Mild disease elsewhere. FFR has been done in the LAD part and that was significant. Distal LAD FFR 0.72. Third diagonal FFR 0.76. In the cardiac catheterization, mid LAD 85% stenosis and ostial diagonal 80% stenosis. Nonobstructive disease in the circumflex. Status post PCI to LAD. Overall, medical treatment for stable coronary disease and his risk factors. He can continue long-term aspirin. No longer on Brilinta. With regard to blood pressure, he is on valsartan/hydrochlorothiazide. His blood pressures seem variable. Today, it seems slightly high but last time, it was 132/78 mm Hg. Overall, lot of normal numbers and some slightly elevated numbers. With regard to lipids, they are not too high but nevertheless he has not able to take statins because of a history of myopathy/chronically high CK levels. Then be suggested Repatha but he does not want to take any injections either. With regard to diabetes, he is on metformin. Hemoglobin A1c is slightly higher than ideal at 8.8%. Coding Level of Care Code Est Pt Level 4 (78567) Diagnoses Atherosclerotic cardiovascular disease I25.10 Type 2 diabetes mellitus with unspecified complications E11.8 Essential hypertension I10 LVH (left ventricular hypertrophy) I51.7 High serum creatine kinase (CK) R74.8 CPT Codes EKG - CPT: 71737-[id number], Complete ([id number])
[2023-11-24 14:48] VITALS: BP 158/80; PULSE 81; BMI 31.1
== END 2023-11-24 15:34 | disposition home or self-care (01) ==
PROVIDERS: PCP Family Medicine; Visit Provider Internal Medicine
DX: I25.10 Atherosclerotic heart disease of native coronary artery without angina pectoris (principal); E11.8 Type 2 diabetes mellitus with unspecified complications; I10 Essential (primary) hypertension; I51.7 Cardiomegaly; R74.8 Abnormal levels of other serum enzymes
CPT/HCPCS: 93010; 99214

== ENCOUNTER → 2023-11-24 14:32 | Outpatient (BNVA) | payer OTHER, SELFPAY | PROVIDERS: PCP Family Medicine; Visit Provider Internal Medicine | DX: I25.10 Atherosclerotic heart disease of native coronary artery without angina pectoris (principal); E11.8 Type 2 diabetes mellitus with unspecified complications; I11.9 Hypertensive heart disease without heart failure; R74.8 Abnormal levels of other serum enzymes; Z79.82 Long term (current) use of aspirin; Z79.84 Long term (current) use of oral hypoglycemic drugs; Z79.899 Other long term (current) drug therapy | CPT/HCPCS: 93005 ==

== ENCOUNTER 2023-12-14 13:34 | Outpatient (REF) | payer OTHER, SELFPAY ==
--- NOTE | ~2023-12-14 | XR_ITS ---
EXAMINATION: XR CERVICAL SPINE CLINICAL INFORMATION: Right neck pain. COMPARISON: None TECHNIQUE: AP, lateral, both oblique, swimmers, and open mouth odontoid views of the cervical spine. FINDINGS: Vertebral alignment is normal without spondylolisthesis. Vertebral body heights are normal. No fractures are evident. There is mild loss of vertebral disc height at C3-C4. Prominent multilevel endplate osteophytes. Facet arthropathy is evident at C4-C5 bilaterally with osteophytes that produce mild bilateral neural foraminal encroachment, left side greater than right. Atherosclerotic calcifications are present in the carotid bulbs. XR/XR cervical spine 5V IMPRESSION: 1. Mild multilevel degenerative disc disease in the cervical spine. 2. Facet arthropathy at C4-C5 with mild bilateral neural foraminal encroachment, left side greater than right.
== END 2023-12-14 13:35 | disposition home or self-care (01) ==
LOC: HO.XRAY 13:34
PROVIDERS: PCP Family Medicine; Visit Provider Family Medicine
DX: M54.2 Cervicalgia (principal)
CPT/HCPCS: 72050

== ENCOUNTER 2023-12-21 15:20 | Outpatient (AMB) | payer OTHER, SELFPAY ==
--- NOTE | 2023-12-21 15:21 | MHC.OFFWIV ---
Intake Vital Signs 12/21/23 15:23 Height 5 ft 10 in Weight 218 lb BMI 31.3 BP 132/84 Blood Pressure Location Rt brachial Position Sitting Pulse 75 Pulse Source Pulse Oximeter Temp 98.6 F Temp Source Oral Pulse Oximetry (%) 98 Oxygen Delivery Method Room Air Intake Visit Reasons: rt shoulder pain/ left eye pain Intake Note: pt is here c/o RT shoulder pain and LT eye pain.(sty) Patient Tobacco Use Status: Never used Tobacco Allergies No Known Allergies Allergy (Verified 12/21/23 15:22) Do you need a note to return to daycare/school/sports/work: No HPI HPI Comments History of Present Illness Details 63-year-old male presents today complaining of stye in his left eye, and right trapezius pain. He denies any particular injury or trauma to his neck or right shoulder. 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 Mother No problems noted. Social History Alcohol intake: current Alcohol intake frequency: a few times a week Patient Tobacco Use Status: Never used Tobacco Review of Systems Const All systems reviewed & are unremarkable except as noted in HPI and below Eyes Details: Patient reports recurrent stye in his left upper lid Reports irritation ENT Reports no additional complaints and Reports neck pain Card Reports no additional complaints Resp Reports no additional complaints GI Reports no additional complaints Musc Reports neck pain Physical Exam Const General: healthy appearing and no acute distress HEENT Head: Yes normal to inspection, Yes normocephalic and Yes atraumatic Ears: hearing grossly normal bilaterally General nose exam: Normal external nose present Face and sinus: Yes normal facial exam Throat: Yes posterior oropharynx normal Eyes Eyelids: Yes eyelid abnormality (Hordeolum present left upper lid) Conjunctivae: conjunctival abnormal (Diffuse injection) diffuse Sclerae: sclerae normal Corneas: corneas normal Pupils: Equal, round and reactive pupils present Resp Effort & Inspection: normal respiratory effort Auscultation: clear to auscultation bilaterally Cardio Rate: regular rate Rhythm: regular rhythm Back/Spine/Pelvis Cervical Spine: cervical muscular tenderness and pain with cervical ROM (Pain with hyperextension) Neuro Cranial nerves: Yes Equal, round and reactive pupils present Extrem General: Yes normal to inspection Right upper extremity: full ROM and shoulder/upper arm (Pain in the right trapezius) Details: normal to inspection Assessment & Plan Assessment & Plan (1) Trapezius strain: Code(s): S46.819A - Strain of other muscles, fascia and tendons at shoulder and upper arm level, unspecified arm, initial encounter (2) Hordeolum externum left upper eyelid: Code(s): H00.014 - Hordeolum externum left upper eyelid Plan: I ordered antibiotic ointment for his left eye. I also ordered a muscle relaxer for his right trapezius and advised to not do any overhead work for period of time until it comes down Plan See plan Medications: New cyclobenzaprine 5 mg PO .at bedtime 10 tabs 0RF erythromycin 1 appl ophthalmic (eye) TID 3.5 grams 0RF Coding Level of Care Code Est Pt Level 3 (10605) Diagnoses Trapezius strain S46.819A Hordeolum externum left upper eyelid H00.014
[2023-12-21 15:23] VITALS: BP 132/84; PULSE 75; TEMP 37; O2SAT 98; BMI 31.3
== END 2023-12-21 15:50 | disposition home or self-care (01) ==
PROVIDERS: PCP Family Medicine; Visit Provider Physician Assistant Medical
DX: S46.819A Strain of other muscles, fascia and tendons at shoulder and upper arm level, unspecified arm, initial encounter (principal); H00.014 Hordeolum externum left upper eyelid
CPT/HCPCS: 99213

== ENCOUNTER 2024-01-12 11:55 | Day surgery (SDC) | payer OTHER, SELFPAY ==
[2024-01-10 12:53] VITALS: BMI 31.1
--- NOTE | 2024-01-11 09:44 | HO.ANESPROP2 ---
Documented by User: Lora Zepeda NP 01/11/24 09:51 HPI - Anesthesia Eval Consult details Narrative: 63yo M for Colonoscopy CAD s/p LAD stent 08/2022. Per 11/2023 cardiology office visit note, stable, off brillinta (life long asa only). PMFSH Active Problems Active Problems: All Active Problems Hordeolum externum left upper eyelid (Acute) Trapezius strain (Acute) Hyperlipidemia (Acute) Coronary artery disease (Acute) High serum creatine kinase (CK) (Acute) Atherosclerotic cardiovascular disease (Acute) LVH (left ventricular hypertrophy) (Acute) SOB (shortness of breath) (Acute) Hx of cardiac cath (Acute) Essential hypertension (Acute) Type 2 diabetes mellitus with unspecified complications (Acute) Past Medical History Medical History (Updated 01/12/24 @ 13:57 by Loretta Monzon RN) Sleep apnea Right shoulder pain HTN (hypertension) Essential hypertension Type 2 diabetes mellitus with unspecified complications Family History Family History Father No problems noted. Mother No problems noted. Surgical History Surgical History (Updated 01/10/24 @ 12:57 by Teri Dawson RN) History of heart artery stent H/O colonoscopy Hx of cardiac cath H/O shoulder surgery Social History Social History Alcohol intake: current Alcohol intake frequency: a few times a week Patient Tobacco Use Status: Never used Tobacco Use of substances other than those prescribed or required for medical reasons: No Are you DNR?: No Advance Directives: No Advance Directives Information Provided: Yes Meds Allergies Allergy/AdvReac Type Severity Reaction Status Date / Time No Known Allergies Allergy Verified 12/21/23 15:22 Exam Height,Weight and Vital Signs: Height 5 ft 10 in Weight 98.43 kg Pertinent Lab Results Pertinent Lab Results: Laboratory Tests 08/02/23 07:20 Sodium 137 Potassium 3.9 Chloride 103 Carbon Dioxide 27 BUN 15 Creatinine 1.31 Narrative Narrative: Per 11/2023 cardiology office visit: In the echocardiogram, LVEF 58%. There was moderate left ventricular hypertrophy. Basal inferior segment appeared hypokinetic. Mild aortic valve calcification. In the EKG component of stress test, he exercised for 5 minutes on Raphael protocol and reached target heart rate. There was moderate shortness of breath but no chest discomfort. Frequent PVCs in stage II. There was EKG evidence of ischemia. But in the perfusion component, there was no ischemia or infarction. Coronary CTA reviewed. There was moderate stenosis in the proximal part of distal LAD. Moderate stenosis in the midcircumflex and obtuse marginal. Mild disease elsewhere. FFR has been done in the LAD part and that was significant. Distal LAD FFR 0.72. Third diagonal FFR 0.76. In the cardiac catheterization, mid LAD 85% stenosis and ostial diagonal 80% stenosis. Nonobstructive disease in the circumflex. Status post PCI to LAD. Assessment and Plan Assessment Anesthesia Assessment: Chart Reviewed Documented by User: Otto Mcclellan MD 01/12/24 14:26 [facility] Past Medical History Medical History (Updated 01/12/24 @ 13:57 by Loretta Monzon RN) Sleep apnea Right shoulder pain HTN (hypertension) Essential hypertension Type 2 diabetes mellitus with unspecified complications Family History Family History Father No problems noted. Mother No problems noted. Family history of problems with anesthesia: No Surgical History Surgical History (Updated 01/10/24 @ 12:57 by Teri Dawson RN) History of heart artery stent H/O colonoscopy Hx of cardiac cath H/O shoulder surgery History of Problems with Anesthesia: No Social History Social History Alcohol intake: current Alcohol intake frequency: a few times a week Patient Tobacco Use Status: Never used Tobacco Use of substances other than those prescribed or required for medical reasons: No Are you DNR?: No Advance Directives: No Advance Directives Information Provided: Yes Meds Allergies Allergy/AdvReac Type Severity Reaction Status Date / Time No Known Allergies Allergy Verified 12/21/23 15:22 Exam Airway Mallampati Class: II TM Dist: <=3cm Neck ROM: Full Denture: Upper Heart: see above. Lungs: ok Assessment and Plan Assessment Anesthesia Assessment: Anesthesia Plan Discussed Final Anesthetic Review Family History of Problems with Anesthesia: No History of Problems with Anesthesia: No NPO: Yes ASA Class: III Final Preanesthetic Review: No Changes in Pt Med Stat, Meds/Allgs Chart Reviewed, Consent Obtained/Reviewed and Anes Risks/Benef Reviewed Patient Risk: High Procedure Risk: Intermediate Anesthetic Plan Anesthetic Plan: MAC: and Agree w/ Assess. and Plan Disposition: Standard PACU
[2024-01-12 12:58] VITALS: BMI 30.4
[2024-01-12 13:13] VITALS: BP 126/82; PULSE 90; RESP 16; TEMP 36.7; O2SAT 99
--- NOTE | 2024-01-12 13:13 | MHC.SHP ---
Pre-Procedural Eval Section A - 24 Hr Update-Section A only Date of Service: 01/12/24 The patient is an INPATIENT: No Changes since office visit: No Cold of Flu in the past 2 weeks, No New Medical Problems, No Changes in Medication and No Patient answered all questions The patient has been examined within 24 hours of the surgical procedure. The History & Physical has been completed within 30 days and I have reviewed it.: Yes Section B - Complete if H&P > 30 days Chief Complaint: Encounter for screening for malignant neoplasm of Allergies: Allergies Allergy/AdvReac Type Severity Reaction Status Date / Time No Known Allergies Allergy Verified 12/21/23 15:22 Plan I have reviewed the history and physical and performed a pertinent physical examination on my patient. No changes have occurred unless specified. Time Spent With Patient Time: Total time managing care of this patient today ____ minutes.
[2024-01-12] MEDS: Lactated Ringers 1,000 ML 100 ML IVCONT (13:33)
[2024-01-12 14:42] VITALS: BP 126/77; PULSE 93; RESP 18; TEMP 36.8; O2SAT 96
[2024-01-12 14:57] VITALS: BP 124/79; PULSE 86; RESP 18; TEMP 36.3; O2SAT 98
--- NOTE | 2024-01-12 15:02 | OP_ITS ---
DATE OF SERVICE: 01/12/2024 SURGEON: Chavez Medina MD INDICATIONS: Colon cancer screening. PREOPERATIVE DIAGNOSIS: POSTOPERATIVE DIAGNOSIS: PROCEDURE PERFORMED: Colonoscopy to the terminal ileum. ESTIMATED BLOOD LOSS: COMPLICATIONS: ANESTHESIA: Monitored anesthesia care. ASSISTANTS: SPECIMENS: DESCRIPTION OF PROCEDURE: A history and physical was performed. The risks and benefits of the procedure were explained to the patient and informed consent was obtained. The patient was placed in the left lateral decubitus position. A digital rectal exam was performed and was found to be normal. The Olympus pediatric video colonoscope was introduced into the rectum and advanced to the cecum. The cecum was identified by transillumination, palpation, and identification of ileocecal valve. Examination was performed and the scope was removed. He tolerated the procedure well and was returned to recovery area in stable condition. FINDINGS: The terminal ileum was briefly examined and was normal. The visualized colonic mucosa was normal. The quality of the prep was good with some liquid stool and some undigested material in the cecum and rectum. This was washed and suctioned. No polyps were identified. Retroflexed examination showed small internal hemorrhoids. IMPRESSION: Normal colonoscopy. RECOMMENDATIONS: 1. Follow up as needed. 2. Repeat colonoscopy is recommended in 10 years for average-risk individuals. MD JOSSELYN Juarez/MAURIZIO / [id number]
== END 2024-01-12 15:15 | disposition home or self-care (01) ==
PROVIDERS: PCP Family Medicine; Visit Provider Internal Medicine Gastroenterology
PROC: 0DJD8ZZ Inspection of Lower Intestinal Tract, Via Natural or Artificial Opening Endoscopic (ICD-10-PCS; CPT 45378; principal; 2024-01-12 13:30)
DX: Z12.11 Encounter for screening for malignant neoplasm of colon (principal); K64.8 Other hemorrhoids; I25.10 Atherosclerotic heart disease of native coronary artery without angina pectoris; Z95.5 Presence of coronary angioplasty implant and graft; I10 Essential (primary) hypertension; E78.5 Hyperlipidemia, unspecified; E11.9 Type 2 diabetes mellitus without complications; G47.30 Sleep apnea, unspecified; Z99.89 Dependence on other enabling machines and devices; Z79.82 Long term (current) use of aspirin; Z79.899 Other long term (current) drug therapy; Z98.890 Other specified postprocedural states
CPT/HCPCS: 45378; J2704

== ENCOUNTER 2024-01-27 10:27 | Outpatient (AMB) | payer OTHER, SELFPAY ==
--- NOTE | 2024-01-27 10:48 | A.SPINEOV_ITS ---
Intake Visit Reasons: Back pain Intake Note: Mr. Gracia is here today c/o right shoulder pain that radiates to arm and fingers. 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 Wynn, Thank you for referring Maycol to our office today. He is a pleasant 63-year-old male who comes in today with a chief complaint of right shoulder pain radiating into his right arm. He reports that this has been ongoing since December 12 of this year. He is unable to identify a specific inciting incident. He reports some associated tingling in the fingers of his right hand. When describing the radiation of pain he states it starts in the lower right side of his neck, shoots over his right shoulder down the lateral aspect of his right arm over the right elbow terminating in his right fingers (2nd - 4th) with a tingling sensation. Thankfully this is not accompanied by any weakness, and has not inhibited from completing his duties at work. He reports that sitting exacerbates his pain and that standing/using his right arm actually helps to alleviate his pain. He has not tried any conservative measures as of yet, has not been to physical therapy, has not attempted any injections, and has not seen a chiropractor. He has tried evnm-iea-zmzzopy medications such as aspirin, believe, and Tylenol with minimal relief of symptoms. PMH: Hypertension, stent placed in August of last year for partial artery blockage in heart (no heart attack). Patient is not on any anticoagulants aside from daily baby aspirin. Social hx:[ The patient does not smoke, reports no substance use. Medications: Daily baby aspirin, valsartan-hydrochlorothiazide. Allergies: NKDA. Physical exam: The patient has 5/5 strength in his upper and lower extremities. He is able to ambulate well and rises from seated position without difficulty. He has no significant sensational deficits. His reflexes are 2+ intact. (-) Lhermitte's, (-) Miles's, (-) clonus. Imaging review: MRI of the cervical spine completed at [facility] shows a posterior disc bulge at C6-7 causing mild central canal and moderate-severe right-sided foraminal stenosis at this level. Impression: Maycol is a pleasant 63-year-old male who comes in today with a chief complaint of right shoulder/arm pain which originates at the base of his neck on the right side and shoots all the way down to his hand. His history, exam, and imaging are most consistent with a right-sided cervical radiculopathy as a result of a acute disc bulge causing right-sided foraminal stenosis. He is continuing to show up to work every day. He has no significant weakness. No myelopathic reflexes. He has not attempted any real conservative measures at t his time. I would like to send him for a course of physical therapy and we will be sending in a Medrol Dosepak for him. I would like him to come and see us after physical therapy. If his symptoms persist at that time we may consider surgical intervention to help resolve this issue. Thank you for allowing us to care for your patient. The total time spent with this visit with this patient was 45 minutes reviewing history, physical exam, MRI imaging review, and implementation of treatment plan or further diagnostic testing Jonas Tovar MD,PhD [facility] [place] [facility] Orders: Orders PT Evaluation and Treatment Today M54.12 - Radiculopathy, cervical region Medications: New methylprednisolone (Medrol (Jed)) PO PER PKG DIR 21 ea 0RF Coding Level of Care Code New Pt Level 4 (15184) Diagnoses Cervical radiculopathy M54.12
== END 2024-01-27 11:31 | disposition home or self-care (01) ==
PROVIDERS: PCP Family Medicine; Referring Provider Family Medicine; Visit Provider Physician Assistant
DX: M54.12 Radiculopathy, cervical region (principal)
CPT/HCPCS: 99204

== ENCOUNTER → 2024-01-27 10:27 | Outpatient (BNVA) | payer OTHER, SELFPAY | PROVIDERS: PCP Family Medicine; Visit Provider Physician Assistant ==

== ENCOUNTER 2024-03-13 15:00 | Outpatient (RCR) | payer OTHER, SELFPAY ==
[2024-02-03 14:56] VITALS: BP 166/84; PULSE 80
--- NOTE | 2024-02-03 16:01 | MHC.PT.EP ---
[facility] [place] Office [place] Office [place] Office [address] [phone] F: [phone] F: [phone] F: [phone] F: [phone] Physical Therapy Plan of Care Date of Evaluation: 02/03/24 Date of Surgery: NA Diagnosis: Radiculopathy, cervical region, posterior disc bulge at C6-7 Assessment: Maycol is a 63 year old male who is referred to PT for Radiculopathy, cervical region, posterior disc bulge at C6-7 . He reports of having sudden onset of pain in R side neck and R UE about 2 months back. He denies any trauma or falls. His symptoms are progressively getting worse. On PT examination he presented with no TTP, 10/10 intensity of pain when it radiates down to R UE, pain only present when trying to hug his in SL, all cervical and shoulder ROM WNL, decreased scap muscle strength, centralization with cervical retractions and positive lift off test. He lives with his and is independent with all ADLs. 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 He would benefit from skilled PT to address the aforementioned impairments and improve tolerance to functional activities. PT RECOMMENDED 2/WEEK HOWEVER DUE TO HIGH CO-PAY PT STATED HE CAN ONLY DO 1/WEEK Frequency and Duration: The patient will be seen 2/week for 5 weeks Short Term Goals: 1. Pt will have 50% decrease in pain which will enable him to tolerate sleeping in SL position and hug his for atleast 30 minutes in 2 weeks. 2. Pt will deny having any radicular symptoms and paresthesia in R UE in 3 weeks Care Home Goals: 1. Pt will be independent with all HEP and return to PLOF in 5 weeks. Treatment Plan: Modalities to reduce pain, spasms and effusion. Manual therapy to restore motion and function. Therapeutic exercise to improve strength and flexibility. Neuromuscular re-education for posture and balance. Therapeutic activities to return to functional activities of daily living. Electronically signed by: Niecy Ji PT DPT Please sign and return to therapist. Thank you for your referral.
--- NOTE | 2024-03-13 15:36 | MHC.PT.DC ---
[facility] [place] [facility] [place] [facility] [place] Office [address] Mariah Pres[address] [phone] F: [phone] F: [phone] F: [phone] F: [phone] Physical Therapy Discharge Report Diagnosis: Radiculopathy, cervical region, posterior disc bulge at C6-7 Date of Surgery: NA Date of Evaluation: 02/03/24 Date of Discharge: 03/13/24 Treatments to Date: 7 Cancellations to Date: 0 No Shows to Date: 0 Discharge Status: Achieved Goals Improved Function Independent with HEP Discharge Summary: Maycol arrived stating he is feeling good. He has completed 7 PT visits and has made significant improvements. He is independent with all HEP and achieved all goals set for him. He is therefore being d/c from PT. Maycol was in agreement with the plan. Electronically signed by: Niecy Ji PT DPT Please sign and return to therapist. Thank you for your referral.
== END 2024-03-13 15:36 | disposition home or self-care (01) ==
LOC: HO.PT 15:00
PROVIDERS: PCP Family Medicine; Visit Provider Physician Assistant
DX: M50.123 Cervical disc disorder at C6-C7 level with radiculopathy (principal)
CPT/HCPCS: 97110; 97112; 97140; 97161

== ENCOUNTER 2024-04-08 06:53 | Outpatient (REF) | payer OTHER, SELFPAY ==
[2024-04-08 11:40] LABS: Estimated Average Glucose 212 mg/dL; Hemoglobin A1C 232.9179 umol/L; Total Hemoglobin (HGBA1C) 3107.2895 umol/L
[2024-04-08 11:45] LABS: Alanine Aminotransferase 64 U/L (0-40); Anion Gap 12 (12-20); Aspartate Amino Transferase 33 U/L (5-37); Blood Urea Nitrogen 12 mg/dL (9-16); Carbon Dioxide 28 mmol/L (22-29); Chloride 102 mmol/L (96-108); Estimated Glomerular Filt Rate 59; Glucose Fasting 219 mg/dL (60-99); Potassium 4.1 mmol/L (3.3-5.1); Sodium 138 mmol/L (135-145)
[2024-04-08 12:24] LABS: Creatinine Urine 146.31 mg/dL; Microalbumin Urine < 5.0 mg/L
== END 2024-04-08 06:54 | disposition home or self-care (01) ==
LOC: HO.HMGCLDS 06:53
PROVIDERS: PCP Family Medicine; Referring Provider Internal Medicine; Visit Provider Family Medicine
DX: I10 Essential (primary) hypertension (principal); E11.9 Type 2 diabetes mellitus without complications
CPT/HCPCS: 36415; 80051; 82043; 82565; 82570; 82947; 83036; 84450; 84460; 84520

== ENCOUNTER 2024-06-28 14:26 | Outpatient (AMB) | payer OTHER, SELFPAY ==
[2024-06-28 14:35] VITALS: BP 130/62; PULSE 81; BMI 31.8
--- NOTE | 2024-06-28 14:35 | MHC.OFFVIS ---
Vital Signs 06/28/24 14:35 Height 5 ft 11 in Weight 227 lb 15.327 oz BMI 31.8 BP 130/62 Blood Pressure Location Lt brachial Position Sitting Pulse 81 Pulse Source Pulse Oximeter Intake Visit Reasons: F/U per HS Intake Note: f/up per HS Machine Adjuster Helper Required: No Accompanied by: Self / Same As Patient Allergies No Known Allergies Allergy (Verified 01/27/24 10:48) Medication List - Last Reconciled 06/28/24 by Jakub Carlton NP aspirin 81 mg PO DAILY hydroxyzine pamoate 25 mg PO DAILY PRN isosorbide mononitrate ER 30 mg PO DAILY methylprednisolone (Medrol (Jed)) PO PER PKG DIR metoprolol tartrate 25 mg PO BID nitroglycerin mg sublingual valsartan-hydrochlorothiazide 160-25 mg 1 tab PO DAILY 90 days HPI Comments Details: This is a 64-year-old male presenting for evaluation of chest pain with exertion. His medical history includes hypertension, hyperlipidemia, diabetes, and coronary artery disease with a history of cardiac catheterization and PCI stenting in 2022. During his PCP visit yesterday, the patient reported chest pain, prompting Dr. Wynn to consult with Dr. Hightower. The patient was brought in today for further evaluation. The patient reports experiencing chest heaviness over the past week, particularly with exertion such as climbing upstairs which requires him to stop and rest to catch his breath. He denies any associated symptoms of shortness of breath, palpitations, dizziness, presyncope, syncope, leg edema, orthopnea, or PND. [facility] Medical History Chest pain on exertion Sleep apnea Right shoulder pain HTN (hypertension) Essential hypertension Type 2 diabetes mellitus with unspecified complications Surgical History History of heart artery stent H/O colonoscopy Hx of cardiac cath H/O shoulder surgery Family History Father No problems noted. Mother No problems noted. Social History Alcohol intake: current Alcohol intake frequency: a few times a week Patient Tobacco Use Status: Never used Tobacco Review of Systems Const Denies chills, Denies fatigue, Denies fever(s), Denies frequent falls, Denies weakness, Denies weight gain and Denies weight loss ENT Denies dizziness Card Denies chest pain, Denies leg edema, Denies lightheadedness, Denies palpitations, Denies dyspnea and Denies dyspnea on exertion Resp Denies cough, Denies dyspnea and Denies dyspnea on exertion GI Denies hematochezia Musc Denies abnormal gait, Denies muscle weakness, Denies numbness, Denies radiating pain into limb and Denies tingling Neuro Denies abnormal gait, Denies dizziness, Denies frequent falls, Denies numbness, Denies tingling and Denies weakness Endo Denies fatigue and Denies palpitations Physical Exam Vital Signs: Last Vital Signs Pulse 81 06/28/24 14:35 BP 130/62 06/28/24 14:35 BMI result Body Mass Index 31.8 Const General: cooperative, healthy appearing, comfortable and no acute distress Orientation/consciousness: patient oriented x3 HEENT Head: Yes normal to inspection Neck Neck: Yes normal visual inspection, Yes trachea midline and Yes supple Chest Chest palpation & inspection: normal inspection of the chest Resp Effort & Inspection: normal respiratory effort Auscultation: clear to auscultation bilaterally, no crackles, no rales, no rhonchi and no wheezes Cardio Jugular venous distension: no JVD Palpation: normal PMI Rate: regular rate Rhythm: regular rhythm Heart sounds: S1 normal heart sound present, S2 normal heart sound present, no click, no gallops, no murmurs and no rubs Peripheral pulses: Peripheral pulses 2+ throughout GI Inspection: Yes normal to inspection Palpation (GI): Soft to palpation Auscultation: normal bowel sounds Skin General skin exam: no rashes or lesions noted Neuro General: patient oriented x3 Extrem General: Yes normal to inspection, No no pedal edema and No calf tenderness Psych Appearance: grossly normal Mental Status: mental status grossly normal Speech and movement: Normal speech and movement present Assessment & Plan Assessment & Plan (1) Chest pain on exertion: Code(s): R07.9 - Chest pain, unspecified Category: Medical Plan: Given the exertional nature of the chest pain and the patient has multiple risk factors, we will proceed with a myocardial perfusion study to evaluate for potential ischemic changes. Treatment will be determined based on the results. Patient was started on isosorbide, metoprolol and nitroglycerin. Continue aspirin therapy. (2) Hyperlipidemia: Code(s): E78.5 - Hyperlipidemia, unspecified Category: Medical Plan: Last LDL 129. States it was not fasting. We can repeat labs. [place] goal less than 70. Depending on the repeat labs may need statin therapy. (3) Essential hypertension: Code(s): I10 - Essential (primary) hypertension Category: Medical Plan: Patient's blood pressure today is well-controlled. He brought in a log of his home blood pressures, which appears stable. There will be no changes to his current blood pressure regimen. The ideal target for his blood pressure is less than 130/80. (4) Type 2 diabetes mellitus with unspecified complications: Code(s): E11.8 - Type 2 diabetes mellitus with unspecified complications Category: Medical Plan: Last A1c 9.0. Patient was previously on metformin but does not know what he is on right now. We will try to retrieve medication list and recent note from his PCP's office. We will recheck an A1c. Patient requires aggressive diabetic management ideally goal for him less than 7.0 Recommend heart healthy diet, staying low until we figure out the chest pain, aggressive blood pressure management, cholesterol management, diabetes management, weight loss. Follow-up after stress test. In the interim, advised patient to seek ER care in case of exertional chest pain that resolved with rest, shortness of breath, palpitations, dizziness, presyncope or syncope. This note was generated using voice recognition software. While every effort has been made to ensure accuracy and proper office supervisor, there may be occasional errors that could affect the content or meaning of the described symptoms. Orders: Orders CA stress test Today R07.9 - Chest pain, unspecified Hemoglobin A1c Today E11.8 - Type 2 diabetes mellitus with unspecified complications NM cardiolite stress test Today R07.9 - Chest pain, unspecified Basic Metabolic Panel Today E78.5 - Hyperlipidemia, unspecified Coding Level of Care Code Est Pt Level 4 (41754) Diagnoses Chest pain on exertion R07.9 Hyperlipidemia E78.5 Essential hypertension I10 Type 2 diabetes mellitus with unspecified complications E11.8 Time Spent (min) 31 Comment Time spent in reviewing the chart, test results, assessment, counseling and documentation.
== END 2024-06-28 15:17 | disposition home or self-care (01) ==
PROVIDERS: PCP Family Medicine
DX: R07.9 Chest pain, unspecified (principal); E78.5 Hyperlipidemia, unspecified; I10 Essential (primary) hypertension; E11.8 Type 2 diabetes mellitus with unspecified complications
CPT/HCPCS: 99214

== ENCOUNTER → 2024-06-28 14:26 | Outpatient (BNVA) | payer OTHER, SELFPAY | PROVIDERS: PCP Family Medicine ==

== ENCOUNTER 2024-07-04 10:03 | Emergency (ER) | payer OTHER, SELFPAY ==
--- NOTE | ~2024-07-04 | XR_ITS ---
EXAMINATION: XR CHEST CLINICAL INFORMATION: cough COMPARISON: 07/09/2021. TECHNIQUE: 2 views of the chest were obtained. FINDINGS: The cardiac, hilar, and mediastinal contours are normal. The lungs are clear bilaterally. There is no pneumothorax or pleural effusion. There is no focal osseous or soft tissue abnormality. XR/XR chest 2V IMPRESSION: No active pulmonary disease. No interval change. Electronically signed by: Shashank Hernandez MD 07/04/2024 11:52 AM [facility]
[2024-07-04 10:17] VITALS: BP 132/83; PULSE 99; RESP 18; TEMP 37.8; O2SAT 97; BMI 31.9
[2024-07-04 11:25] LABS: MANUAL DIFF FLAG NO
[2024-07-04 11:27] LABS: Basophils Percent Auto 0.2 % (0-2); Eosinophils Absolute Auto 0.1 X10*3/uL (0.0-0.4); Eosinophils Percent Auto 1.1 % (0-4); Hematocrit 38.8 % (42.0-52.0); Hemoglobin 13.3 g/dl (14.0-18.0); Imm Gran Abs Auto 0.01 X10*3/uL (0.00-0.03); Imm Gran Pct Auto 0.2 % (0.0-0.4); Lymphocytes Absolute Auto 1.1 X10*3/uL (1.2-4.9); Mean Corpuscular HGB Conc 34.3 g/dl (31.0-36.0); Mean Corpuscular Hemoglobin 27.4 pg (27.0-33.0); Mean Corpuscular Volume 79.8 fL (80.0-98.0); Mean Platelet Volume 9.2 fL (9.4-12.4); Monocytes Absolute Auto 0.5 X10*3/uL (0.1-1.2); Monocytes Percent Auto 9.9 % (2-11); Neutrophils Absolute Auto 2.9 x10*3/uL (2.0-8.3); Neutrophils Percent Auto 64.6 % (45-73); Platelet Count 159 X10*3/uL (160-400); Red Blood Count 4.86 X10*6/uL (4.60-5.80); Red Cell Distribution Width 14.3 % (11.0-16.0); White Blood Count 4.5 X10*3/uL (4.8-10.8)
[2024-07-04 11:41] LABS: Alanine Aminotransferase 69 U/L (0-40); Albumin Level 4.6 g/dL (3.5-5.0); Alkaline Phosphatase 92 U/L (39-117); Anion Gap 11 (12-20); Aspartate Amino Transferase 44 U/L (5-37); Bilirubin Total 0.7 mg/dL (0.0-1.0); Blood Urea Nitrogen 12 mg/dL (9-16); Calcium 9.5 mg/dL (8.4-10.2); Carbon Dioxide 27 mmol/L (22-29); Chloride 102 mmol/L (96-108); Estimated Glomerular Filt Rate 53; Glucose Random 230 mg/dL (60-115); Potassium 3.9 mmol/L (3.3-5.1); Sodium 136 mmol/L (135-145); Total Protein 8.8 g/dL (6.5-8.0)
[2024-07-04 12:03] LABS: Influenza A PCR POSITIVE (Negative); Influenza B PCR NEGATIVE (Negative); Resp Syncy Virus RNA Qual PCR NEGATIVE (Negative); SARS COV2 PCR INHOUSE NEGATIVE (Negative)
--- OUTSIDE RECORDS SUMMARY | 2024-07-04 13:11 | XMS_ITS ---
Author Organization [facility] Address [address] [place] [address] Care Team Providers Care Equipment Maint Tech Name Role Phone Gage Wynn MD Primary Care Provider Unavailab Chavez Maria Jr Unavailable [phone] REASON FOR VISIT robb sss ext [phone] Encounters Encounter Location Date Provider Diagnosis [facility] [address] [place] [id number] 01/10/2024 Chavez Medina Jr PLAN OF TREATMENT No Information
--- OUTSIDE RECORDS SUMMARY | 2024-07-04 13:11 | XMS_ITS ---
Author Organization [facility] Address [address] [place] [address] Care Team Providers Care Bounty Hunter Name Role Phone Gage Wynn MD Primary Care Provider Unavailab Chavez Maria Jr Unavailable [phone] REASON FOR VISIT pcp new medication Encounters Encounter Location Date Provider Diagnosis [facility] [address] [place] [id number] 01/07/2024 Chavez Medina Jr PLAN OF TREATMENT No Information
--- OUTSIDE RECORDS SUMMARY | 2024-07-04 13:12 | XMS_ITS | Data Portability ---
Author Organization [facility] [address] Address [address] [place] [address] Care Team Providers Care Printing Screen Assembler Name Role Phone KAREY SURESH Primary Care Provider Assessment No assessment recorded. Plan of Treatment Reminders Order Date Submit Date Provider Last Modified By Organization Details Last Modified Time Details Appointments None recorded. Lab None recorded. Referral None recorded. Procedures None recorded. Surgeries None recorded. Imaging None recorded. Medication Orders betamethaso ne dipropionat e 0.05 % topical ointment 2022 023 [email or web address] [id number], [address] [facility], [place], [address], 14:08:27 Patient TargetsNo targets recorded. Patient Instructions Encounter Date Encounter Id Patient Instructions Last Modified By Organization Details Last Modified Time 10/12/2022 [id number] hives: care instructions Not available 10/12/2022 14:08:22 poison elkin, oak, and sumac: care instructions Not available 10/12/2022 14:08:33 Reason for Referral None Reported. Problems Name Problem SNOMED Code Status Onset Date Resolution Date Notes Provider Name and Address Organization Details Recorded Time Hypertensive disorder 31724307 Active 2022 [facility] 13:39:36 Diabetes mellitus 91196387 Active 2022 [facility] 13:39:54 Problem Notes None recorded. Procedures Surgical History Date Name Laterality Status Provider Name and Address Organization Details Recorded Time placement of stent in cardiac conduit completed Sonia Hemphill [facility] 10/12/2022 13:40:27 Imaging Results None recorded. Procedure Notes None recorded. Medical Equipment None Reported. Allergies No known drug allergies Medications Name Sig Start Date Stop Date Status Note LastModified by Organization Details LastModified Time permethrin 5 % topical cream APPLY (THOROUGHLY MASSAGE INTO SKIN FROM HEAD TO SOLES OF FEET) BY TOPICAL ROUTE ONCE LEAVE ON FOR 8-14 HR, THEN REMOVE BY THOROUGH WASHING 2022 active Not Available Not Available Not Avai lable betamethason e dipropionate 0.05 % topical ointment Apply 1 application twice a day by topical route for 10 days. 2022 active Not Available Not Available Not Avai lable valsartan active Not Available Not Sabrina ilable Not Available aspirin active Not Available Not Avail able Not Available Brilinta active Not Available Not Avai lable Not Available Vitals Date Recorded Body height Provider Name an d Address Organization Details Last Updated DateTime 10/12/2022 180.34 cm Sonia FELIZ - [facility] 10/12/2022 13:40:37 Date Recorded Body mass index (BMI) Body weight Provider Name and Address Organization Details Last Updated DateTime 10/12/2022 31.8 kg/m2 629805.06 g Sonia Hanleyu [facility] 10/12/2022 13:40:42 Date Recorded Pain severity - 0-10 verbal numeric rating [Score] - Reported Provider Name and Address Organization Details Last Updated DateTime 10/12/2022 0 Sonia Davila [facility] 10/12/2022 13:40:45 Date Recorded Body temperature Provider Name a nd Address Organization Details Last Updated DateTime 10/12/2022 97 [degF] Sonia FELIZ - [facility] 10/12/2022 13:41:29 Date Recorded Respiratory rate Provider Name a nd Address Organization Details Last Updated DateTime 10/12/2022 18 /min Sonia FELIZ - [facility] 10/12/2022 13:41:30 Date Recorded Oxygen saturation Oxygen saturation in Arterial blood by Pulse oximetry Provider Name and Address Organization Details Last Updated DateTime 10/12/2022 100 % 100 % Sonia FELIZ [facility] 10/12/2022 13:41:46 Date Recorded Heart rate Provider Name an d Address Organization Details Last Updated DateTime 10/12/2022 71 /min Sonia Campos PA [facility] 10/12/2022 13:42:38 Date Recorded Systolic blood pressure Diastolic blood pressure Provider Name and Address Organization Details Last Updated DateTime 10/12/2022 133 mm[Hg] 82 mm[Hg] Sonia Campos PA - [facility] 10/12/2022 13:42:51 Social History Question Answer Notes LastModified by Organizat ion Details LastModified Time Tobacco Smoking Status Never Smoker Sonia Beth baca PA [facility] 10/12/2022 13:40:11 What Is Your Level Of Alcohol Consumption? None Information not available 10/12/2022 Do You Use Any Illicit Or Recreational Drugs? No Information not available 10/12/2022 Have You Recently Traveled Abroad? No Information not available 10/12/2022 Do You Or Have You Ever Used Any Other Forms Of Tobacco Or Nicotine? No Information not available 10/12/2022 Sex: Unknown Functional Status None recorded. Mental Status None recorded. Family History Relationship Description Onset Age of this Age Resolved Age Notes LastModified by Organization Details LastModified Time Father No current problems or disability [email or web address] Not available 10/12 13:40:03 Mother No current problems or disability [email or web address] Not available 10/12 13:40:03 Medical History No medical history recorded. Immunizations Vaccine Type Date Status Note Provider Nam e and Address Organization Details Recorded Time COVID-19, mRNA, LNP-S, PF, 30 mcg/0.3 mL dose 03/05/2021 completed Sonia baca PA - [facility] 10/12/2022 13:38:02 COVID-19, mRNA, LNP-S, PF, 30 mcg/0.3 mL dose 03/26/2021 completed Sonia baca PA - [facility] 10/12/2022 13:38:02 COVID-19, mRNA, LNP-S, bivalent, PF, 30 mcg/0.3 mL dose 06/03/2022 completed Sonia baca PA - [facility] 10/12/2022 13:38:02 Past Encounters Encounter ID Performer Location Encounter Start Date Encounter Closed Date Diagnosis/Indication Diagnosis SNOMED-CT Code Diagnosis ICD10 Code Diagnosis Note [id number] Elie Lance MD [address] [facility] [address] [place] [address] 10/12/2022 13:25:06 10/12/2022 14:09:25 Contact dermatitis caused by plants 168274552 L25.5 Please follow up with PCP or Urgent Care in 3-5 days if no improvemen t or if any new symptoms occur that are concerning .Call 911 or go to nearest ER if you develop any shortness of breath, chest pain, severe headache, dizziness, or other concerning symptoms Health Concerns Section Related Observation LastModified by Organization Detai ls LastModified Time None Recorded Concern Status LastModified by Organization Details LastModified Time None Recorded Advance Directives Directive None Recorded Payers Encounter Date Sequence Insurance Name Policy Number Policy Goldstein Covered Member ID Goldstein Member ID Guarantor Name 10/12/2022 1 [facility] [id number] 1 Maycol Gracia [id number] Maycol Gracia Notes Date Note Type Note Provider Name and Address Organization Details Recorded Time 10/12/2022 text/html UC Rash/Skin LesionReported bypatient.Location:[facility]; hands Duration:2 weeksNotes:has worked outside, not sure if in contact with poison elkin. No household contacts with simialr rash slightly itchy Elie Lance MD [facility] [place], [address], [place] - [facility] 10/12/2022 14:14:25
--- OUTSIDE RECORDS SUMMARY | 2024-07-04 13:12 | XMS_ITS | Patient Health Record ---
Author Organization [facility] Address [address] [place] [address] Care Team Providers Care Red Mud Thickener Operator Name Role Phone Kingsley SNELL, Gage Primary Care Provider UnavailChavez Devine Jr Unavailable ALLERGIES No Known Allergies REASON FOR REFERRAL No Information MEDICATIONS Medication SIG (Take, Route, Frequency, Duration) Notes Start Date End Date Status Aspirin Low Dose 81 MG TAKE 1 TABLET BY MOUTH EVERY DAY Oral for 90 Active Valsartan-hydroCHLOROthiaz casie 160-25 MG Oral for 90 Active MiraLax (colon prep) 17 GM/SCOOP mixed with Gatorade or Crystal Light Orally begin at 5:00 p.m. the day before the procedure for 1 day 12/30/2023 Active SOCIAL HISTORY Sex Assigned At : Social History Observation Description Sex Assigned At Unknown PROBLEMS Problem Type ICD Code Onset Dates Problem Status W/U Status Risk SNOMED Code Notes Problem Colon cancer screening (Z12.11) Active confirmed 750042064 Problem Encounter for other preprocedural examination (Z01.818) Active confirmed 020372474 Problem Long-term use of aspirin therapy (Z79.82) Active confirmed 057289679 VITAL SIGNS Blood pressure diastolic 00 mm Hg 12/30/2023 Height 70.75 in 12/30/2023 Blood pressure systolic 00 mm Hg 12/30/2023 Weight 218 lbs 12/30/2023 BMI 30.62 kg/m2 12/30/2023 Encounters Encounter Location Date Provider Diagnosis [facility] Outpatient [address] [place], [place] [phone] 01/12/2024 Chavez Medina Jr Colon cancer screening Z12.11 [facility] [address] [place] [address] 12/30/2023 Chavez Medina Jr Colon cancer screening Z12.11 ; Encounter for other preprocedural examination Z01.818 and Long-term use of aspirin therapy Z79.82 [facility] [address] [place] [address] 01/07/2024 Chavez Medina Jr [facility] [address] [place] [address] 01/10/2024 Chavez Medina Jr ASSESSMENTS Encounter Date Diagnosis Assessment Notes Treatment Notes Treatment Clinical Notes 01/12/2024 Colon cancer screening (ICD-10 - Z12.11) 12/30/2023 Colon cancer screening (ICD-10 - Z12.11) Colonoscopy material was printed 12/30/2023 Encounter for other preprocedural examination (ICD-10 - Z01.818) 12/30/2023 Long-term use of aspirin therapy (ICD-10 - Z79.82) PLAN OF TREATMENT Future Test Test Name Order Date COLONOSCOPY 10/20/2012 COLONOSCOPY 12/30/2023 Insurance Providers Payer Name Payer Address Payer Phone Subscriber Number Group Number Insured Name Patient Relationship to Insured Coverage Start Date Coverage End Date [facility] [address] [place] [address] [phone] [id number] [place] LOAIZA Self - patient is the insured MEDICAL (GENERAL) HISTORY Medical History History ICD Code Hypertension Coronary artery disease with cardiac yovanny nt placement 08/2022 Colonoscopy 01/24, normal, ten-year follo wup Hyperlipidemia LVH Type 2 diabetes mellitus Right shoulder pain Surgical History Surgery Date(Month/Year) Shoulder surgery cardiac stent -Dr. Hightower 2022
[2024-07-04 14:31] VITALS: BP 146/69; PULSE 98; RESP 20; TEMP 37.3; O2SAT 97
--- NOTE | 2024-07-04 14:31 | ED.URI ---
HPI - URI/Sore Throat General Chief Complaint: Upper Respiratory Symptoms Stated Complaint: Cough, wheezing, SOB Time Seen by Provider: 07/04/24 14:35 Source: patient Mode of arrival: ambulatory Limitations: no limitations History of Present Illness ED Provider: Angela Bowles PA-C HPI Narrative: 64-year-old male with history of hyperlipidemia, cervical radiculopathy, LVH, DM, CAD who presents to the ER for evaluation of diffuse body aches, productive cough, fever, wheezing for the last 4 days. He has been around positive sick contacts. He reports a fever of 101 last night. He states he is bringing up yellow phlegm when he coughs. Denies any chest pain or difficulty breathing. No abdominal pain, nausea, vomiting, diarrhea. He has been tolerating normal p.o.. He did not get the flu shot in the fall MD elicited complaint: fever and cough Onset (ago): day(s) (4) Consistency: progressively worsening Severity: moderate Description of mucous: yellow Able to tolerate fluids by mouth: Yes Exacerbating factors: nothing Relieving factors: nothing Context: sick contacts Associated symptoms: fever, chills, myalgias, headache, nasal congestion and cough Treatments prior to arrival: none Related Data Home Medications ?Medication ?Instructions ?Recorded ?Confirmed hydroxyzine pamoate 25 mg capsule 25 mg PO DAILY PRN 06/28/24 06/28/24 isosorbide mononitrate 30 mg 30 mg PO DAILY 06/28/24 06/28/24 tablet,extended release 24 hr metoprolol tartrate 25 mg tablet 25 mg PO BID 06/28/24 06/28/24 nitroglycerin 0.4 mg sublingual mg sublingual 06/28/24 06/28/24 tablet Previous Rx's ?Medication ?Instructions ?Recorded aspirin 81 mg tablet,delayed 81 mg PO DAILY #90 tabs 05/28/23 release methylprednisolone 4 mg tablets in See Rx Instructions PO PER PKG DIR 01/27/24 a dose pack (Medrol (Jed)) #21 ea valsartan 160 1 tab PO DAILY 90 days #90 tabs 04/05/24 mg-hydrochlorothiazide 25 mg tablet albuterol sulfate 90 mcg/actuation 1 inh inhalation QID PRN shortness 07/04/24 aerosol inhaler of breath or wheezing #6.7 grams benzonatate 100 mg capsule 100 mg PO TID PRN cough #14 caps 07/04/24 Allergies Allergy/AdvReac Type Severity Reaction Status Date / Time No Known Allergies Allergy Verified 07/04/24 10:20 Review of Systems Review of Systems: Yes all other systems are reviewed and are negative [facility] Past Medical History Medical History Chest pain on exertion Sleep apnea Right shoulder pain HTN (hypertension) Essential hypertension Type 2 diabetes mellitus with unspecified complications Surgical History History of heart artery stent H/O colonoscopy Hx of cardiac cath H/O shoulder surgery Family History Family History Father No problems noted. Mother No problems noted. Social History Social History Alcohol intake: current Alcohol intake frequency: a few times a week Patient Tobacco Use Status: Never used Tobacco Advance Directives: Yes Advance Directives Information Provided: Yes Advance Directives on File: No Physical Exam Vital Signs: Vital Signs: Last Vital Signs Temp 99.1 F 07/04/24 14:41 Pulse 98 07/04/24 14:41 Resp 20 07/04/24 14:41 BP 146/69 H 07/04/24 14:41 Pulse Ox 97 07/04/24 14:41 O2 Del Method Room Air 07/04/24 14:41 BMI result Body Mass Index 31.9 Appearance: Alert. Oriented X3. No acute distress. Head: normocephalic, atraumatic. Eyes: Pupils equal, round and reactive to light. ENT: Pharynx normal. No tonsillar swelling or exudate. Neck: Normal inspection. Neck supple. CVS: Normal heart rate and rhythm. Pulses normal. Respiratory: No respiratory distress. Breath sounds normal. Speaking in complete sentences Skin: Skin warm and dry. Normal skin color. Normal skin turgor. No rashes. Extremities: No lower extremity edema. No joint swelling. Neuro/psych: Oriented X 3. Grossly normal, nonfocal, steady gait Normal speech and cognition. Medical Decision Making Medical Decision Making MDM Narrative: 64-year-old male with history of CAD, LVH, HLD, dm, HTN who presents to the ER for evaluation of 4 days of intermittent fevers, productive cough, body aches, headaches and generalized malaise. He arrives to the ER with low-grade temp of 100 degrees. He is hemodynamically stable. He is not in any respiratory distress and saturating well on room air. Lab workup shows a stable anemia, mild thrombocytopenia and leukopenia. Glucose is 230 with mild, chronic elevation of LFTs. X-ray without focal infiltrate. Patient is positive for influenza A. Not in treatment window for Tamiflu. We discussed supportive care measures as well as return precautions. No wheezing heard on exam but he would like an inhaler for his reports of wheezing. Will also prescribe Tessalon for cough. Encouraged follow-up with his primary care doctor. At this time he is stable for discharge home with supportive care. Differential Diagnosis Differential Diagnoses: The differential diagnosis associated with the presentation includes strep, covid, flu, rsv, other viral syndrome, bronchitis, pneumonia Admission/Observation Consideration of admission/observation: Escalation of care including admission/observation considered Lab Data MDM Lab Attestation statement: I reviewed the patient's lab results. Pancytopenia, hyperglycemia 07/04/24 11:21 07/04/24 11:21 Labs: Lab Results 07/04/24 07/04/24 Range/Units 11:18 11:21 WBC 4.5 L (4.8-10.8) X10*3/uL RBC 4.86 (4.60-5.80) X10*6/uL Hgb 13.3 L (14.0-18.0) g/dl Hct 38.8 L (42.0-52.0) % MCV 79.8 L (80.0-98.0) fL MCH 27.4 (27.0-33.0) pg MCHC 34.3 (31.0-36.0) g/dl RDW 14.3 (11.0-16.0) % Plt Count 159 L (160-400) X10*3/uL MPV 9.2 L (9.4-12.4) fL Immature Gran % (Auto) 0.2 (0.0-0.4) % Neut % (Auto) 64.6 (45-73) % Lymph % (Auto) 24.0 (20-40) % [place] % (Auto) 9.9 (2-11) % Eos % (Auto) 1.1 (0-4) % Baso % (Auto) 0.2 (0-2) % Lymph # (Auto) 1.1 L (1.2-4.9) X10*3/uL [place] # (Auto) 0.5 (0.1-1.2) X10*3/uL Eos # (Auto) 0.1 (0.0-0.4) X10*3/uL Baso # (Auto) 0.0 (0.0-0.2) X10*3/uL Abs Immat Gran (auto) 0.01 (0.00-0.03) X10*3/uL Absolute Neuts (auto) 2.9 (2.0-8.3) x10*3/uL Absolute Nucleated RBC 0.000 (0.0-0.012) X10*3/uL Nucleated RBC % (auto) 0.0 (0.0-0.2) /100WBC Sodium 136 (135-145) mmol/L Potassium 3.9 (3.3-5.1) mmol/L Chloride 102 (96-108) mmol/L Carbon Dioxide 27 (22-29) mmol/L Anion Gap 11 L (12-20) BUN 12 (9-16) mg/dL Creatinine 1.36 (0.5-1.4) mg/dL Estim Creat Clear Calc 67.0 Estimated GFR 53 Random Glucose 230 H (60-115) mg/dL Calcium 9.5 (8.4-10.2) mg/dL Total Bilirubin 0.7 (0.0-1.0) mg/dL AST 44 H (5-37) U/L ALT 69 H (0-40) U/L Alkaline Phosphatase 92 (39-117) U/L Total Protein 8.8 H (6.5-8.0) g/dL Albumin 4.6 (3.5-5.0) g/dL Influenza Type A (PCR) POSITIVE A (Negative) Influenza Type B (PCR) NEGATIVE (Negative) RSV RNA Qual (PCR) NEGATIVE (Negative) SARS-CoV-2 RNA (RT-PCR) NEGATIVE (Negative) Independent Interpretation I performed an independent interpretation of an: Plain X-Ray Interpretation: No focal infiltrate or effusion Radiology Impression Discussion of test interpretation with radiology: I have reviewed the radiologist's reading. External Record Review External record reviewed: Outpatient record, Prior outpatient labs and Prior outpatient radiology Tests considered The following testing was considered but not selected: Considered EKG, no chest pain or shortness of breath to suggest cardiac etiology Prescription Management I considered prescription management with: Antiviral Chronic Conditions Patient?s care impacted by: Diabetes, Hypertension and Other (CAD) Critical Care Time Critical Care Time Critical Care Time: No Discharge Plan Discharge Clinical Impression: Influenza Patient Disposition: Home, Self-Care Instructions: Influenza (DC) Additional Instructions: You were found to be Influenza A POSITIVE today. Your chest x-ray and oxygen levels were normal. Rest. Drink plenty of fluids. Do not go out in public while you are not feeling well. Take over the counter cold/flu medications as needed for your symptoms. Take Tylenol and/or Motrin as needed for fevers and body aches. Follow up with your doctor this week. If you shortness of breath worsens , if you develop difficulty breathing or any other concerning symptom come back to the ER for further evaluation. Prescriptions: New benzonatate 100 mg capsule 100 mg PO TID PRN (Reason: cough) Qty: 14 0RF albuterol sulfate 90 mcg/actuation HFA aerosol inhaler 1 inh inhalation QID PRN (Reason: shortness of breath or wheezing) Qty: 6.7 0RF No Action aspirin 81 mg tablet,delayed release (DR/EC) 81 mg PO DAILY Qty: 90 3RF valsartan-hydrochlorothiazide 160-25 mg tablet 1 tab PO DAILY 90 Days Qty: 90 1RF nitroglycerin 0.4 mg tablet, sublingual sublingual metoprolol tartrate 25 mg tablet 25 mg PO BID isosorbide mononitrate 30 mg tablet extended release 24 hr 30 mg PO DAILY hydroxyzine pamoate 25 mg capsule 25 mg PO DAILY PRN methylprednisolone [Medrol (Jed)] 4 mg tablets,dose pack See Rx Instructions PO PER PKG DIR Qty: 21 0RF Rx Instructions: PO PER PKG DIR Referrals: Gage Wynn MD [Primary Care Provider] - Stand Alone Forms: Work/School Release Interventions: ED Discharge Assessment Last Done: 07/04/24 14:41 Discharge Date/Time: 07/04/24 14:42 Print Language: Icelandic
[2024-07-04 14:41] VITALS: BP 146/69; PULSE 98; RESP 20; TEMP 37.3; O2SAT 97
== END 2024-07-04 14:42 | disposition home or self-care (01) ==
PROVIDERS: Emergency Provider Emergency Medicine; PCP Family Medicine
DX: J10.1 Influenza due to other identified influenza virus with other respiratory manifestations (principal); R05.9 Cough, unspecified; R06.02 Shortness of breath; I25.10 Atherosclerotic heart disease of native coronary artery without angina pectoris; M79.10 Myalgia, unspecified site; R50.9 Fever, unspecified; R51.9 Headache, unspecified; Z03.818 Encounter for observation for suspected exposure to other biological agents ruled out; Z79.899 Other long term (current) drug therapy
CPT/HCPCS: 0241U; 36415; 71046; 80053; 85025; 99282; 99283

== ENCOUNTER → 2024-07-04 10:20 | Outpatient (BNV) | payer OTHER, SELFPAY | PROVIDERS: PCP Family Medicine; Visit Provider Radiology Diagnostic Radiology | DX: R05.9 Cough, unspecified (principal) | CPT/HCPCS: 71046 ==

== ENCOUNTER → 2024-07-26 09:51 | Outpatient (REF) | payer OTHER, SELFPAY ==
--- NOTE | ~2024-07-26 | NM_ITS ---
EXERCISE MYOCARDIAL PERFUSION STUDY INDICATION: Exertional chest pain TECHNIQUE: The patient was brought in for an exercise perfusion study on 07/26/2024. Patient performed exercise as per Raphael protocol and was injected 30 mCi of sestamibi once target heart rate was achieved. Images were obtained using the SPECT gamma camera interlaced with the gating device. Images were obtained in supine position. Resting perfusion study was performed on 07/27/2024. Patient was administered 30 mCi of sestamibi intravenously at rest. Images were then obtained in supine position. Images obtained without without CT attenuation. Total DLP 111 mGy-cm. Images were processed with the software and compared side to side in short axis, horizontal long axis and vertical long axis views. FINDINGS: Raw images were reviewed The stress perfusion study showed nonattenuated images show mildly reduced uptake in the basal and mid anterior/anterolateral as well as the basal and mid inferior wall of the LV myocardium. Wall of the LV myocardium. Attenuated corrected images show moderately reduced uptake in the basal and mid anterolateral wall of the LV myocardium. The gated study shows normal LV systolic function with calculated LVEF of 60%. LV cavity is normal in size. The gated study shows normal systolic wall thickening and contraction of segments. Resting study shows improved uptake in the anterior and anterolateral wall on attenuated as well as nonattenuated corrected images. Gating at rest reveals normal systolic wall motion with ejection fraction at 58%. The findings are consistent with mild intensity mild to moderate size basal and mid anterolateral ischemia most likely diagonal territory. NM/NM cardiolite stress test IMPRESSION: 1. Myocardial perfusion imaging study shows mild intensity mild to moderate size anterolateral ischemia. 2. Gated LVEF is 60%. 3. Transient ischemic dilatation not present. EKG revealed [positive for ischemia. Electronically signed by: Bradley Oleary MD 07/27/2024 04:09 PM [facility]
--- NOTE | 2024-07-26 09:54 | CA_ITS ---
Acquisition Time: 2024-07-26 10:10:31 Total Exercise Time: 00:05:15 Test Indications: CP Medications: SEE H&P Protocol: ALBA Max HR: 150 BPM 94% of Pred: 158 BPM Max BP: 178/78 mmHG Max Work Load: 7.0 METS Exercise Stress Test with exercise 5 mins 15 secs of Alba Protocol, achieving 94% MPHR, with reports of 4/10 mid chest discomfort with moderate SOB that resolved quickly in recovery, without any arrthmias, with normotensive response to exercise. With downsloping ST segment in the inferior leads and through V3-V6 meeting criteria for ischemia. ST segment improved in recovery. Nuclear images pending. Test reviewed with Dr. Oleary. Referred By: Jakub Carlton Electronically Signed By: Jakub Carlton
--- OUTSIDE RECORDS SUMMARY | 2024-07-26 11:29 | XMS_ITS | Patient Health Record ---
Author Organization [facility] Address [address] [place] [address] Care Team Providers Care Senior Software Development Manager Name Role Phone Kingsley SNELL, Gage Primary [...] Problem Colon cancer screening (Z12.11) Active confirmed 340473138 Problem Encounter for other preprocedural examination (Z01.818) Active confirmed 123931369 Problem Long-term use of aspirin therapy (Z79.82) Active confirmed 029190023 VITAL SIGNS Blood pressure diastolic 00 mm Hg 12/30/2023 Height 70.75 in 12/30/2023 Blood pressure systolic 00 mm Hg 12/30/2023 Weight 218 lbs 12/30/2023 BMI 30.62 kg/m2 12/30/2023 Encounters Encounter Location Date Provider Diagnosis [facility] Outpatient [address] [place], [place] [phone] 01/12/2024 Chavez Medina Jr Colon cancer screening Z12.11 [facility] [address] [place] [address] 12/30/2023 Chavez Medina Jr Colon cancer screening Z12.11 ; Encounter for other preprocedural examination Z01.818 and Long-term use of aspirin therapy Z79.82 [facility] [address] [place] [address] 01/07/2024 Chavez Medina Jr [facility] [address] [place] [address] 01/10/2024 Chavez Medina Jr ASSESSMENTS Encounter Date [...] Insured Coverage Start Date Coverage End Date [facility] [address] [place] [address] [id number] [place] LOAIZA Self - patient is the insured MEDICAL (GENERAL) HISTORY Medical History History ICD Code Hypertension Coronary artery disease with cardiac yovanny nt placement 08/2022 Colonoscopy 01/24, normal, ten-year follo wup Hyperlipidemia LVH Type 2 diabetes mellitus Right shoulder pain Surgical History Surgery Date(Month/Year) Shoulder surgery cardiac stent -Dr. Hightower 2022
--- OUTSIDE RECORDS SUMMARY | 2024-07-26 11:29 | XMS_ITS | Data Portability ---
Author Organization [facility] [address] Address [address] [place] [address] Care Team Providers Care Accounts Payable Coordinator Name Role Phone KAREY SURESH Primary Care [...] ointment 2022 023 [email or web address] [id number], [address] [facility], [place], [address], 14:08:27 Patient TargetsNo targets recorded. Patient Instructions Encounter Date Encounter Id Patient Instructions Last Modified By Organization Details Last Modified Time 10/12/2022 [id number] hives: care instructions Not available 10/12/2022 14:08:22 poison elkin, oak, and sumac: care instructions Not available 10/12/2022 14:08:33 Reason for Referral None Reported. Problems Name Problem SNOMED Code Status Onset Date Resolution Date Notes Provider Name and Address Organization Details Recorded Time Hypertensive disorder 60269418 Active 2022 [facility] 13:39:36 Diabetes mellitus 92441361 Active 2022 TR[facility] 13:39:54 Problem Notes None recorded. Procedures Surgical History Date Name Laterality Status Provider Name and Address Organization Details Recorded Time placement of stent in cardiac conduit completed Sonia Hemphill [facility] 10/12/2022 13:40:27 Imaging Results None recorded. [...] Not Available Vitals Date Recorded Body height Body mass index (BMI) Body weight Pain severity - 0-10 verbal numeric rating [Score] - Reported Body temperature Respiratory rate Oxygen saturation Oxygen saturation in Arterial blood by Pulse oximetry Heart rate Systolic blood pressure Diastolic blood pressure Provider Name and Address Organization Details Last Updated DateTime 180.34 cm 31.8 kg/m2 902862. 06 g 0 97 [degF] 18 /min 100 % 100 % 71 /min 133 mm[Hg] 82 mm[Hg] Sonia FELIZ - [facility] 13:42:51 Social History Question Answer Notes LastModified by Organizat ion Details LastModified Time Tobacco Smoking Status Never Smoker TRINI Jasso [facility] 10/12/2022 13:40:11 What Is Your [...] SNOMED-CT Code Diagnosis ICD10 Code Diagnosis Note [id number] Elie Lance MD [address] [address] 10/12/2022 13:25:06 10/12/2022 14:09:25 Contact dermatitis caused by plants [id number] L25.5 Please follow up with PCP or [...] Goldstein Member ID Guarantor Name 10/12/2022 1 [facility] [id number] 1 Maycol Gracia [id number] Maycol Gracia Notes Date Note Type Note Provider Name and Address Organization Details Recorded Time 10/12/2022 text/html UC Rash/Skin LesionReported bypatient.Location:[facility]; hands Duration:2 weeksNotes:has worked outside, not sure if in contact with poison elkin. No household contacts with simialr rash slightly itchy Elie Lance MD [address] [place], [address], [place] - [facility] 10/12/2022 14:14:25
--- OUTSIDE RECORDS SUMMARY | 2024-07-26 11:29 | XMS_ITS ---
Author Organization [facility] Address [address] [place] [address] Care Team Providers Care Weight Analyst Name Role Phone Gage Wynn MD Primary Care Provider Unavailab Chavez Maria Jr Unavailable REASON FOR VISIT screening colon Encounters Encounter Location Date Provider Diagnosis [facility] [place] [address] [place], [place] [phone] 01/12/2024 Chavez Medina Jr Colon cancer screening Z12.11 ASSESSMENTS Encounter Date Diagnosis Assessment Notes Treatment Notes Treatment Clinical Notes 01/12/2024 Colon cancer screening (ICD-10 - Z12.11) PLAN OF TREATMENT No Information
--- OUTSIDE RECORDS SUMMARY | 2024-07-26 11:29 | XMS_ITS ---
Author Organization [facility] Address [address] [place] [address] Care Team Providers Care Course Instructor Name Role Phone Gage Wynn MD Primary Care Provider Unavailab Chavez Maria Jr Unavailable [phone] REASON FOR VISIT robb sss ext [phone] Encounters Encounter Location Date Provider Diagnosis [facility] [address] [place] [phone] 01/10/2024 Chavez Medina Jr PLAN OF TREATMENT No Information
--- OUTSIDE RECORDS SUMMARY | 2024-07-26 11:29 | XMS_ITS ---
Author Organization [facility] Address [address] [place] [address] Care Team Providers Care Roving Marker Name Role Phone Gage Wynn MD Primary Care Provider Unavailab Chavez Maria Jr Unavailable REASON FOR VISIT pcp new medication Encounters Encounter Location Date Provider Diagnosis [facility] [address] [place] [address] 01/07/2024 Chavez Medina Jr PLAN OF TREATMENT No Information
== END ==
LOC: HO.CARD 09:51
PROVIDERS: PCP Family Medicine
DX: R07.9 Chest pain, unspecified (principal)
CPT/HCPCS: 78452; 93017; A9500

== ENCOUNTER → 2024-07-26 09:54 | Outpatient (BNV) | payer OTHER, SELFPAY | PROVIDERS: PCP Family Medicine | DX: R07.9 Chest pain, unspecified (principal); R06.02 Shortness of breath | CPT/HCPCS: 78452; 93016; 93018 ==

== ENCOUNTER 2024-08-03 06:03 | Outpatient (REF) | payer OTHER, SELFPAY ==
--- OUTSIDE RECORDS SUMMARY | 2024-08-03 06:06 | XMS_ITS ---
Author Organization [facility] Address [address] [place] [address] Care Team Providers Care Mineral Mixer Name Role Phone Gage Wynn MD Primary Care Provider Unavailab Chavez Maria Jr Unavailable REASON FOR VISIT pcp new medication Encounters Encounter Location Date Provider Diagnosis [facility] [address] [place] [address] 01/07/2024 Chavez Medina Jr PLAN OF TREATMENT No Information
--- OUTSIDE RECORDS SUMMARY | 2024-08-03 06:06 | XMS_ITS | Data Portability ---
Author Organization [facility] [address] Address [address] [place] [address] Care Team Providers Care Drywall Sprayer Name Role Phone KAREY SURESH Primary Care [...] ointment 2022 023 [email or web address] [id number], [address] [facility], [place], [address], 14:08:27 Patient TargetsNo targets recorded. Patient Instructions Encounter Date Encounter Id Patient Instructions Last Modified By Organization Details Last Modified Time 10/12/2022 [id number] hives: care instructions Not available 10/12/2022 14:08:22 poison elkin, oak, and sumac: care instructions Not available 10/12/2022 14:08:33 Reason for Referral None Reported. Problems Name Problem SNOMED Code Status Onset Date Resolution Date Notes Provider Name and Address Organization Details Recorded Time Hypertensive disorder 64527215 Active 2022 [facility] 13:39:36 Diabetes mellitus 51134164 Active 2022 [facility] 13:39:54 [...] Last Updated DateTime 180.34 cm 31.8 kg/m2 415646. 06 g 0 97 [degF] 18 /min [...] SNOMED-CT Code Diagnosis ICD10 Code Diagnosis Note [id number] Elie Lance [place] [address] [address] 10/12/2022 13:25:06 10/12/2022 14:09:25 Contact dermatitis caused by plants [id number] L25.5 Please follow up with PCP or [...] Goldstein Member ID Guarantor Name 10/12/2022 1 [facility] [id number] 1 Maycol Gracia [id number] Maycol Gracia Notes Date Note Type Note Provider Name and Address Organization Details Recorded Time 10/12/2022 text/html UC Rash/Skin LesionReported bypatient.Location:[facility]; hands Duration:2 weeksNotes:has worked outside, not sure if in contact with poison elkin. No household contacts with simialr rash slightly itchy Elie Lance MD [address] [facility] [place], [address], [place] - [facility] 10/12/2022 14:14:25
--- OUTSIDE RECORDS SUMMARY | 2024-08-03 06:06 | XMS_ITS ---
Author Organization [facility] Address [address] [place] [address] Care Team Providers Care Dealer Analyst Name Role Phone Gage Wynn MD Primary Care Provider Unavailab Chavez Maria Jr Unavailable [phone] REASON FOR VISIT screening colon Encounters Encounter Location Date Provider Diagnosis [facility] Outpatient [address] [place], [place] [id number] 01/12/2024 Chavez Medina Jr Colon cancer screening Z12.11 ASSESSMENTS Encounter Date Diagnosis Assessment Notes Treatment Notes Treatment Clinical Notes 01/12/2024 Colon cancer screening (ICD-10 - Z12.11) PLAN OF TREATMENT No Information
--- OUTSIDE RECORDS SUMMARY | 2024-08-03 06:07 | XMS_ITS ---
Author Organization [facility] Address [address] [place] [address] Care Team Providers Care Snack Steward Name Role Phone Gage Wynn MD Primary Care Provider Unavailab Chavez Maria Jr Unavailable [phone] REASON FOR VISIT robb sss ext [phone] Encounters Encounter Location Date Provider Diagnosis [facility] [address] [place] [address] 01/10/2024 Chavez Medina Jr PLAN OF TREATMENT No Information
--- OUTSIDE RECORDS SUMMARY | 2024-08-03 06:07 | XMS_ITS | Patient Health Record ---
Author Organization [facility] Address [address] [place] [address] Care Team Providers Care Timber Killer Name Role Phone Kingsley SNELL, Gage Primary [...] Problem Colon cancer screening (Z12.11) Active confirmed 872455729 Problem Encounter for other preprocedural examination (Z01.818) Active confirmed 626302802 Problem Long-term use of aspirin therapy (Z79.82) Active confirmed 548951588 VITAL SIGNS Blood pressure diastolic 00 mm Hg 12/30/2023 Height 70.75 in 12/30/2023 Blood pressure systolic 00 mm Hg 12/30/2023 Weight 218 lbs 12/30/2023 BMI 30.62 kg/m2 12/30/2023 Encounters Encounter Location Date Provider Diagnosis [facility] Outpatient [address] [place], [place] [phone] 01/12/2024 Chavez Medina Jr Colon cancer screening Z12.11 [facility] [address] [place] [address] 12/30/2023 Chavez Medina Jr Colon cancer screening Z12.11 ; Encounter for other preprocedural examination Z01.818 and Long-term use of aspirin therapy Z79.82 [facility] [address] [place] [address] 01/07/2024 Chavez Medina Jr [facility] [address] [place] [address] 01/10/2024 Chavez Medina Jr ASSESSMENTS Encounter Date [...] Insured Coverage Start Date Coverage End Date [facility] [address] [place] [address] [id number] [place] LOAIZA Self - patient is the insured MEDICAL (GENERAL) HISTORY Medical History History ICD Code Hypertension Coronary artery disease with cardiac yovanny nt placement 08/2022 Colonoscopy 01/24, normal, ten-year follo wup Hyperlipidemia LVH Type 2 diabetes mellitus Right shoulder pain Surgical History Surgery Date(Month/Year) Shoulder surgery cardiac stent -Dr. Hightower 2022
[2024-08-03 07:32] LABS: Estimated Average Glucose 240 mg/dL; Hemoglobin A1C 283.9923 umol/L; Total Hemoglobin (HGBA1C) 3318.2555 umol/L
[2024-08-03 07:37] LABS: Anion Gap 11 (12-20); Blood Urea Nitrogen 18 mg/dL (9-16); Calcium 9.4 mg/dL (8.4-10.2); Carbon Dioxide 28 mmol/L (22-29); Chloride 104 mmol/L (96-108); Cholesterol 172 mg/dL (<200); Estimated Glomerular Filt Rate 58; Glucose Random 266 mg/dL (60-115); HDL Cholesterol 31 mg/dL (>40); LDL Cholesterol Calculated 111 mg/dL (<100); Potassium 4.2 mmol/L (3.3-5.1); Sodium 139 mmol/L (135-145); Triglycerides 152 mg/dL (<150)
== END 2024-08-03 06:04 | disposition home or self-care (01) ==
LOC: HO.LAB 06:03
PROVIDERS: PCP Family Medicine
DX: E78.5 Hyperlipidemia, unspecified (principal); E11.8 Type 2 diabetes mellitus with unspecified complications
CPT/HCPCS: 36415; 80048; 80061; 83036

== ENCOUNTER 2024-08-04 13:03 | Outpatient (AMB) | payer OTHER, SELFPAY ==
--- OUTSIDE RECORDS SUMMARY | 2024-08-04 13:31 | XMS_ITS ---
Author Organization [facility] Address [address] [place] [address] Care Team Providers Care Medical Supply Technician Name Role Phone Gage Wynn MD Primary Care Provider Unavailab Chavez Maria Jr Unavailable REASON FOR VISIT screening colon Encounters Encounter Location Date Provider Diagnosis [facility] Outpatient [address] [place], [place] [phone] 01/12/2024 Chavez Medina Jr Colon cancer screening Z12.11 ASSESSMENTS Encounter Date Diagnosis Assessment Notes Treatment Notes Treatment Clinical Notes 01/12/2024 Colon cancer screening (ICD-10 - Z12.11) PLAN OF TREATMENT No Information
--- OUTSIDE RECORDS SUMMARY | 2024-08-04 13:31 | XMS_ITS ---
Author Organization [facility] Address [address] [place] [address] Care Team Providers Care Micro Computer Data Processor Name Role Phone Gage Wynn MD Primary Care Provider Unavailab Chavez Maria Jr Unavailable REASON FOR VISIT robb sss ext [phone] Encounters Encounter Location Date Provider Diagnosis [facility] [address] [place] [address] 01/10/2024 Chavez Medina Jr PLAN OF TREATMENT No Information
--- OUTSIDE RECORDS SUMMARY | 2024-08-04 13:31 | XMS_ITS | Patient Health Record ---
Author Organization [facility] Address [address] [place] [address] Care Team Providers Care Manager Reliability Name Role Phone Kingsley SNELL, Gage Primary [...] Problem Colon cancer screening (Z12.11) Active confirmed 006314367 Problem Encounter for other preprocedural examination (Z01.818) Active confirmed 684298876 Problem Long-term use of aspirin therapy (Z79.82) Active confirmed 992547468 VITAL SIGNS Blood pressure diastolic 00 mm Hg 12/30/2023 Height 70.75 in 12/30/2023 Blood pressure systolic 00 mm Hg 12/30/2023 Weight 218 lbs 12/30/2023 BMI 30.62 kg/m2 12/30/2023 Encounters Encounter Location Date Provider Diagnosis [facility] Outpatient [address] [place], [place] [id number] 01/12/2024 Chavez Medina Jr Colon cancer screening Z12.11 [facility] [address] [place] [address] 12/30/2023 Chavez Medina Jr Colon cancer screening Z12.11 ; Encounter for other preprocedural examination Z01.818 and Long-term use of aspirin therapy Z79.82 [facility] [address] [place] [address] 01/07/2024 Chavez Medina Jr [facility] [address] [place] [address] 01/10/2024 Chavez Medina Jr ASSESSMENTS Encounter Date [...] Insured Coverage Start Date Coverage End Date [facility] [address] [place] [address] [phone] [id number] [place] LOAIZA Self - patient is the insured MEDICAL (GENERAL) HISTORY Medical History History ICD Code Hypertension Coronary artery disease with cardiac yovanny nt placement 08/2022 Colonoscopy 01/24, normal, ten-year follo wup Hyperlipidemia LVH Type 2 diabetes mellitus Right shoulder pain Surgical History Surgery Date(Month/Year) Shoulder surgery cardiac stent -Dr. Hightower 2022
--- OUTSIDE RECORDS SUMMARY | 2024-08-04 13:31 | XMS_ITS ---
Author Organization [facility] Address [address] [place] [address] Care Team Providers Care Electronics Teacher Name Role Phone Gage Wynn MD Primary Care Provider Unavailab Chavez Maria Jr Unavailable [phone] REASON FOR VISIT pcp new medication Encounters Encounter Location Date Provider Diagnosis [facility] [address] [place] [address] 01/07/2024 Chavez Medina Jr PLAN OF TREATMENT No Information
--- OUTSIDE RECORDS SUMMARY | 2024-08-04 13:31 | XMS_ITS | Data Portability ---
Author Organization [facility] [address] Address [address] [place] [address] Care Team Providers Care Recycling Manager Name Role Phone KAREY SURESH Primary Care [...] ointment 2022 023 [email or web address] [id number], [address] [facility], [place], [address], 14:08:27 Patient TargetsNo targets recorded. Patient Instructions Encounter Date Encounter Id Patient Instructions Last Modified By Organization Details Last Modified Time 10/12/2022 [id number] hives: care instructions Not available 10/12/2022 14:08:22 poison elkin, oak, and sumac: care instructions Not available 10/12/2022 14:08:33 Reason for Referral None Reported. Problems Name Problem SNOMED Code Status Onset Date Resolution Date Notes Provider Name and Address Organization Details Recorded Time Hypertensive disorder 18885050 Active 2022 [facility] 3 13:39:36 Diabetes mellitus 81364091 Active 2022 [facility] 13:39:54 [...] Last Updated DateTime 180.34 cm 31.8 kg/m2 649107. 06 g 0 97 [degF] 18 /min [...] SNOMED-CT Code Diagnosis ICD10 Code Diagnosis Note [id number] Elie Lance [place] [address] [address] 10/12/2022 13:25:06 10/12/2022 14:09:25 Contact dermatitis caused by plants [id number] L25.5 Please follow up with PCP or [...] ID Guarantor Name 10/12/2022 1 [facility] [id number] Maycol Gracia [id number] Maycol Gracia Notes Date Note Type Note Provider Name and Address Organization Details Recorded Time 10/12/2022 text/html UC Rash/Skin LesionReported bypatient.Location:[facility]; hands Duration:2 weeksNotes:has worked outside, not sure if in contact with poison elkin. No household contacts with simialr rash slightly itchy Elie Lance MD [address] [facility], [address], [place] - [facility] 10/12/2022 14:14:25
[2024-08-04 14:18] VITALS: BP 126/70; PULSE 76; BMI 33.1
--- NOTE | 2024-08-04 14:18 | MHC.OFFVIS ---
Vital Signs 08/04/24 14:18 Height 5 ft 10 in Weight 231 lb 0.711 oz BMI 33.1 BP 126/70 Blood Pressure Location Lt brachial Position Sitting Pulse 76 Pulse Source Pulse Oximeter Intake Visit Reasons: F/U s/p testing Packaging Mechanic Required: No Accompanied by: Self / Same As Patient Allergies No Known Allergies Allergy (Verified 07/04/24 10:20) Medication List - Last Reconciled 08/04/24 by Hector Hightower MD albuterol sulfate 90 mcg/actuation 1 inh inhalation QID PRN aspirin 81 mg PO DAILY atorvastatin 40 mg PO DAILY benzonatate 100 mg PO TID PRN hydroxyzine pamoate 25 mg PO DAILY PRN isosorbide mononitrate ER 30 mg PO DAILY metformin 500 mg PO DAILY metoprolol tartrate 25 mg PO BID nitroglycerin mg sublingual valsartan-hydrochlorothiazide 160-25 mg 1 tab PO DAILY 90 days HPI Comments Details: Maycol returns for follow-up regarding coronary disease. In the past, he was having shortness of breath which led to a comprehensive workup and eventually cardiac catheterization. Had LAD stenting. He was feeling okay but more recently primary care physician's office had called us stating that he was complaining of chest pain. Then seen by our nurse practitioner who ordered a stress test which was reported positive ischemia. Now he states that he was having chest pains/discomfort but he was also having influenza that time. After the respiratory symptoms got better he did not have any further discomfort. Somewhat of a difficult historian. [facility] Medical History Chest pain on exertion Sleep apnea Right shoulder pain HTN (hypertension) Essential hypertension Type 2 diabetes mellitus with unspecified complications Surgical History History of heart artery stent H/O colonoscopy Hx of cardiac cath H/O shoulder surgery Family History Father No problems noted. Mother No problems noted. Social History Alcohol intake: current Alcohol intake frequency: a few times a week Patient Tobacco Use Status: Never used Tobacco Review of Systems Const Denies chills, Denies fatigue, Denies fever(s), Denies weight gain and Denies weight loss ENT Denies dizziness Card Denies chest pain, Denies leg edema, Denies lightheadedness, Denies palpitations, Denies dyspnea on exertion, Denies orthopnea and Denies other Resp Denies cough and Denies dyspnea on exertion GI Denies hematochezia and Denies change in stool character Musc Denies abnormal gait, Denies muscle weakness, Denies numbness, Denies radiating pain into limb and Denies tingling Neuro Denies abnormal gait, Denies dizziness, Denies numbness and Denies tingling Endo Denies fatigue and Denies palpitations Physical Exam Vital Signs: Last Vital Signs Pulse 76 08/04/24 14:18 BP 126/70 08/04/24 14:18 BMI result Body Mass Index 33.1 Const General: comfortable and no acute distress Orientation/consciousness: patient oriented x3 HEENT Other: Unremarkable Head: Yes normal to inspection Neck Neck: Yes normal visual inspection Chest Chest palpation & inspection: normal inspection of the chest Resp Auscultation: clear to auscultation bilaterally Cardio Palpation: normal PMI Heart sounds: S1 normal heart sound present, S2 normal heart sound present, no gallops, no murmurs and no rubs GI Palpation (GI): Soft to palpation Back/Spine/Pelvis Other: unremarkable Skin General skin exam: no rashes or lesions noted Neuro General: patient oriented x3 Extrem General: Yes normal to inspection Psych Mental Status: mental status grossly normal Assessment & Plan Assessment & Plan (1) Atherosclerotic cardiovascular disease: Code(s): I25.10 - Atherosclerotic heart disease of [place] coronary artery without angina pectoris Category: Medical (2) Type 2 diabetes mellitus with unspecified complications: Code(s): E11.8 - Type 2 diabetes mellitus with unspecified complications Category: Medical (3) Essential hypertension: Code(s): I10 - Essential (primary) hypertension Category: Medical (4) LVH (left ventricular hypertrophy): Code(s): I51.7 - Cardiomegaly Category: Medical (5) High serum creatine kinase (CK): Code(s): R74.8 - Abnormal levels of other serum enzymes Category: Medical Plan Cardiac studies reviewed. In the cardiac catheterization 2022, mid LAD 85% stenosis and ostial diagonal 80% stenosis. Nonobstructive disease in the circumflex. Status post PCI to LAD. In the reason perfusion imaging study, reported to have mild intensity [id number] sinus anterolateral ischemia. EKG reported to be positive for ischemia. Overall, some reason chest pains in the setting of influenza but not anymore, known coronary disease, abnormal stress test, risk factors. We discussed about repeating diagnostic catheterization and he is agreeable. Can proceed with the same. For medications, continue long-term aspirin. If he gets another PCI, we will need a 2nd antiplatelet drug. Continue long-acting nitrates and beta-blockers. With regard to blood pressure, continue valsartan/HCTZ. He was not on statins in the past because of history of myopathy/chronically high CK levels. However, it seems that he has been put on statins recently. We will need repeat a CK to ensure there is no significant runs. In the past, Repatha was suggested but he does not like injectables. For diabetes, he is on metformin. Poorly controlled with hemoglobin A1c is 10%. This can lead to high likelihood of various diabetic complications including vascular disease. Follow-up after repeat catheterization. He already has had some recent labs. Hence we will check protime INR which has not been completed. We will check CK due to history of high CK in the past and recent use of statins. Orders: Orders Prothrombin Time INR Today I25.10 - Atherosclerotic heart disease of [place] coronary artery without angina pectoris CK, Total+Isoenzymes, Serum 3 Months I25.10 - Atherosclerotic heart disease of [place] coronary artery without angina pectoris Coding Level of Care Code Est Pt Level 4 (64762) Complex EM visit Add On G2211 Diagnoses Atherosclerotic cardiovascular disease I25.10 Type 2 diabetes mellitus with unspecified complications E11.8 Essential hypertension I10 LVH (left ventricular hypertrophy) I51.7 High serum creatine kinase (CK) R74.8
== END 2024-08-04 14:50 | disposition home or self-care (01) ==
PROVIDERS: PCP Family Medicine; Visit Provider Internal Medicine
DX: I25.10 Atherosclerotic heart disease of native coronary artery without angina pectoris (principal); E11.8 Type 2 diabetes mellitus with unspecified complications; I10 Essential (primary) hypertension; I51.7 Cardiomegaly; R74.8 Abnormal levels of other serum enzymes
CPT/HCPCS: 99214

== ENCOUNTER → 2024-08-04 13:03 | Outpatient (BNVA) | payer OTHER, SELFPAY | PROVIDERS: PCP Family Medicine; Visit Provider Internal Medicine ==

== ENCOUNTER 2024-08-31 05:58 | Outpatient (REF) | payer OTHER, SELFPAY ==
[2024-08-31 07:21] LABS: Prothrombin Time 11.7 SEC (10.9-12.4)
== END 2024-08-31 05:59 | disposition home or self-care (01) ==
LOC: HO.LAB 05:58
PROVIDERS: PCP Family Medicine; Visit Provider Internal Medicine
DX: I25.10 Atherosclerotic heart disease of native coronary artery without angina pectoris (principal)
CPT/HCPCS: 36415; 85610

== ENCOUNTER 2024-09-04 05:55 | Outpatient (REF) | payer OTHER, SELFPAY ==
[2024-09-04 07:27] LABS: Hematocrit 36.3 % (42.0-52.0); Hemoglobin 12.3 g/dl (14.0-18.0); Mean Corpuscular HGB Conc 33.9 g/dl (31.0-36.0); Mean Corpuscular Hemoglobin 27.5 pg (27.0-33.0); Mean Platelet Volume 10.4 fL (9.4-12.4); Platelet Count 175 X10*3/uL (160-400); Red Blood Count 4.48 X10*6/uL (4.60-5.80); Red Cell Distribution Width 14.7 % (11.0-16.0); White Blood Count 6.6 X10*3/uL (4.8-10.8)
[2024-09-04 07:46] LABS: Anion Gap 12 (12-20); Blood Urea Nitrogen 17 mg/dL (9-16); Calcium 9.5 mg/dL (8.4-10.2); Carbon Dioxide 26 mmol/L (22-29); Chloride 104 mmol/L (96-108); Estimated Glomerular Filt Rate > 60; Glucose Random 229 mg/dL (60-115); Potassium 4.1 mmol/L (3.3-5.1); Sodium 138 mmol/L (135-145)
== END 2024-09-04 05:56 | disposition home or self-care (01) ==
LOC: HO.LAB 05:55
PROVIDERS: PCP Family Medicine; Visit Provider Internal Medicine
DX: I25.10 Atherosclerotic heart disease of native coronary artery without angina pectoris (principal); I51.7 Cardiomegaly
CPT/HCPCS: 36415; 80048; 85027

== ENCOUNTER → 2024-09-05 23:59 | Outpatient (BNV) | payer OTHER, SELFPAY | PROVIDERS: PCP Family Medicine; Visit Provider Internal Medicine Cardiovascular Disease | DX: I25.118 Atherosclerotic heart disease of native coronary artery with other forms of angina pectoris (principal) | CPT/HCPCS: 92928; 92978; 93458; 99152 ==

== ENCOUNTER 2024-09-12 13:29 | Outpatient (AMB) | payer OTHER, SELFPAY ==
--- NOTE | 2024-09-12 13:34 | MHC.OFFVIS ---
Vital Signs 09/12/24 13:35 Height 5 ft 10 in Weight 220 lb 7.396 oz BMI 31.6 BP 118/60 Blood Pressure Location Lt brachial Position Sitting Pulse 78 Pulse Source Pulse Oximeter Intake Visit Reasons: follow up s/ Cath Allergies No Known Allergies Allergy (Verified 07/04/24 10:20) Medication List - Last Reconciled 09/12/24 by Hector Hightower MD albuterol sulfate 90 mcg/actuation 1 inh inhalation QID PRN aspirin 81 mg PO DAILY atorvastatin 40 mg PO DAILY clopidogrel 75 mg PO DAILY metformin 500 mg PO DAILY valsartan-hydrochlorothiazide 160-25 mg 1 tab PO DAILY 90 days HPI Comments Details: Maycol returns for follow-up regarding coronary disease. In the past, he was having shortness of breath which led to a comprehensive workup and eventually cardiac catheterization. Had LAD stenting. He was feeling okay but more recently primary care physician's office had called us stating that he was complaining of chest pain. Then seen by our nurse practitioner who ordered a stress test which was reported positive ischemia. Following that, he underwent another catheterization and diagonal stenting. He states he feels good these days. He reports more energy and overall feeling better after the most recent PCI. Taking his meds regularly. [facility] Medical History Chest pain on exertion Sleep apnea Right shoulder pain HTN (hypertension) Essential hypertension Type 2 diabetes mellitus with unspecified complications Surgical History History of heart artery stent H/O colonoscopy Hx of cardiac cath H/O shoulder surgery Family History Father No problems noted. Mother No problems noted. Social History Alcohol intake: current Alcohol intake frequency: a few times a week Patient Tobacco Use Status: Never used Tobacco Review of Systems Const Denies weakness ENT Denies dizziness Card Denies chest pain, Denies chest pain with activity, Denies syncope, Denies rapid heart rate, Denies pedal edema, Denies edema, Denies leg edema, Denies lightheadedness, Denies palpitations, Denies dyspnea, Denies dyspnea on exertion and Denies orthopnea Resp Denies cough, Denies dyspnea and Denies dyspnea on exertion GI Denies hematochezia and Denies change in stool character Musc Denies abnormal gait, Denies muscle cramps, Denies muscle weakness, Denies numbness, Denies radiating pain into limb and Denies tingling Neuro Denies abnormal gait, Denies dizziness, Denies syncope, Denies numbness, Denies tingling and Denies weakness Endo Denies palpitations Physical Exam Vital Signs: Last Vital Signs Pulse 78 09/12/24 13:35 BP 118/60 09/12/24 13:35 BMI result Body Mass Index 31.6 Const General: comfortable and no acute distress Orientation/consciousness: patient oriented x3 HEENT Other: Unremarkable Head: Yes normal to inspection Neck Neck: Yes normal visual inspection Chest Chest palpation & inspection: normal inspection of the chest Resp Auscultation: clear to auscultation bilaterally Cardio Palpation: normal PMI Heart sounds: S1 normal heart sound present, S2 normal heart sound present, no gallops, Murmur heart sound present systolic II/ and at the right sternal border and no rubs GI Palpation (GI): Soft to palpation Back/Spine/Pelvis Other: unremarkable Skin General skin exam: no rashes or lesions noted Neuro General: patient oriented x3 Extrem General: Yes normal to inspection Psych Mental Status: mental status grossly normal Assessment & Plan Assessment & Plan (1) Atherosclerotic cardiovascular disease: Code(s): I25.10 - Atherosclerotic heart disease of [place] coronary artery without angina pectoris Category: Medical (2) Type 2 diabetes mellitus with unspecified complications: Code(s): E11.8 - Type 2 diabetes mellitus with unspecified complications Category: Medical (3) Essential hypertension: Code(s): I10 - Essential (primary) hypertension Category: Medical (4) LVH (left ventricular hypertrophy): Code(s): I51.7 - Cardiomegaly Category: Medical (5) High serum creatine kinase (CK): Code(s): R74.8 - Abnormal levels of other serum enzymes Category: Medical Plan Cardiac studies reviewed. In the perfusion imaging study, reported to have mild intensity [id number] sinus anterolateral ischemia. EKG reported to be positive for ischemia. In the cardiac catheterization 08/2024, severe ostial diagonal stenosis status post PCI. Mild InStent restenosis in the LAD stent. Overall, coronary disease, prior LAD stent and more recently diagonal stent. Doing well. Continue aspirin/Plavix. Per cath recommendations, to continue Plavix after the 1st year and stop aspirin. Continue long-acting nitrates and beta-blockers. For blood pressure, he is on valsartan/hydrochlorothiazide. He was not on statins in the past because of history of myopathy/chronically high CK levels. However, it seems that he has been put on statins recently. We will need repeat a CK to ensure there is no significant runs. In the past, Repatha was suggested but he does not like injectables. For diabetes, he is on metformin. Poorly controlled with hemoglobin A1c is 10%. This can lead to high likelihood of various diabetic complications including vascular disease. For the aortic sclerotic murmur, get an echocardiogram. In a prior study from 2021, he had aortic valve calcification but no stenosis. Follow-up in 4 months. Orders: Orders CA echo transthoracic complete 4 Months I25.10 - Atherosclerotic heart disease of [place] coronary artery without angina pectoris, I35.0 - Nonrheumatic aortic (valve) stenosis Medications: New clopidogrel 75 mg PO DAILY 90 tabs 3RF Coding Level of Care Code Est Pt Level 4 (19145) Complex EM visit Add On G2211 Diagnoses Atherosclerotic cardiovascular disease I25.10 Type 2 diabetes mellitus with unspecified complications E11.8 Essential hypertension I10 LVH (left ventricular hypertrophy) I51.7 High serum creatine kinase (CK) R74.8
[2024-09-12 13:35] VITALS: BP 118/60; PULSE 78; BMI 31.6
--- OUTSIDE RECORDS SUMMARY | 2024-09-12 15:56 | XMS_ITS ---
Author Organization [facility] Address [address] [place] [address] Care Team Providers Care Air Defense Artillery Senior Sergeant Name Role Phone Gage Wynn MD Primary Care Provider Unavailab miah Medina Jr, Chavez Unavailable [phone] REASON FOR VISIT robb sss ext [phone] Encounters Encounter Location Date Provider Diagnosis [facility] [address] [place] [address] 01/10/2024 Chavez Medina Jr Plan Of Treatment No Information Progress Notes * KEEGAN CHRISTIECELSADOB: [birth year] (63 yo M)Acc No.[id number]:01/10/2024 Patient:?[place] CHRISTIE :1960???Age:63 Y???Sex:Male Address:[address] [place], [place], [address] * true * Date:? Generated for Printi tyrone/Catherine/eTransmitting on:?09/12/2024 03:56 PM EDT
--- OUTSIDE RECORDS SUMMARY | 2024-09-12 15:56 | XMS_ITS | Data Portability ---
Author Organization [facility] [address] Address [address] [place] [address] Care Team Providers Care Guide Rail Cleaner Name Role Phone KAREY SURESH Primary Care [...] ointment 2022 023 [email or web address] [id number], [address] [facility], [place], [address], 14:08:27 Patient TargetsNo targets recorded. Patient Instructions Encounter Date Encounter Id Patient Instructions Last Modified By Organization Details Last Modified Time 10/12/2022 [id number] hives: care instructions Not available 10/12/2022 14:08:22 poison elkin, oak, and sumac: care instructions Not available 10/12/2022 14:08:33 Reason for Referral None Reported. Problems Name Problem SNOMED Code Status Onset Date Resolution Date Notes Provider Name and Address Organization Details Recorded Time Hypertensive disorder 50831665 Active 2022 [facility] 13:39:36 Diabetes mellitus 48551988 Active 2022 [facility] 13:39:54 [...] Last Updated DateTime 180.34 cm 31.8 kg/m2 563104. 06 g 0 97 [degF] 18 /min [...] SNOMED-CT Code Diagnosis ICD10 Code Diagnosis Note [id number] [place] [address] [address] 10/12/2022 13:25:06 10/12/2022 14:09:25 Contact dermatitis caused by plants [id number] L25.5 Please follow up with PCP or [...] ID Guarantor Name 10/12/2022 1 [facility] [id number] Maycol Gracia [id number] Maycol Gracia Notes Date Note Type Note Provider Name and Address Organization Details Recorded Time 10/12/2022 text/html UC Rash/Skin LesionReported bypatient.Location:[facility]; hands Duration:2 weeksNotes:has worked outside, not sure if in contact with poison elkin. No household contacts with simialr rash slightly itchy Elie Lance MD [address] [place], [address], [place] - [facility] 10/12/2022 14:14:25
--- OUTSIDE RECORDS SUMMARY | 2024-09-12 15:56 | XMS_ITS | Patient Health Record ---
Author Organization [facility] Address [address] [place] [address] Care Team Providers Care Scoop Operator Name Role Phone Kingsley SNELL, Gage Primary Care Provider Chavez Aguillon Jr Unavailable [phone] Allergies No Known Allergies Reason For Referral No Information Medications Medication SIG (Take, Route, Frequency, Duration) Notes Start Date End Date Status Aspirin Low Dose 81 MG TAKE 1 TABLET BY MOUTH EVERY DAY Oral for 90 Active Valsartan-hydroCHLOROthiaz casie 160-25 MG Oral for 90 Active MiraLax (colon prep) 17 GM/SCOOP mixed with Gatorade or Crystal Light Orally begin at 5:00 p.m. the day before the procedure for 1 day 12/30/2023 Active Problems Problem Type SNOMED Code ICD Code Onset Dates Problem Status W/U Status Risk Notes Problem 626029933 Colon cancer screening (Z12.11) Active confirmed Problem 146980786 Encounter for other preprocedural examination (Z01.818) Active confirmed Problem 907295288 Long-term use of aspirin therapy (Z79.82) Active confirmed Vital Signs Blood pressure diastolic 00 mm Hg 12/30/2023 Height 70.75 in 12/30/2023 Blood pressure systolic 00 mm Hg 12/30/2023 Weight 218 lbs 12/30/2023 BMI 30.62 kg/m2 12/30/2023 Encounters Encounter Location Date Provider Diagnosis [facility] [place] [address] [place], [place] [phone] 01/12/2024 Chavez Medina Jr Colon cancer screening Z12.11 [facility] [address] [place] [address] 12/30/2023 Chavez Medina Jr Colon cancer screening Z12.11 ; Encounter for other preprocedural examination Z01.818 and Long-term use of aspirin therapy Z79.82 [facility] [address] [place] [address] 01/07/2024 Chavez Medina Jr [facility] [address] [place] [address] 01/10/2024 Chavez Medina Jr Assessments Encounter Date Diagnosis (ICD Code) Assessment Notes Treatment Notes Treatment Clinical Notes Section Notes 01/12/2024 Colon cancer screening (ICD-10 - Z12.11) 12/30/2023 Colon cancer screening (ICD-10 - Z12.11) Colonoscopy material was printed We discussed colonoscopy today. We discussed risks and benefits of the procedure today. He understands these and agrees to proceed. He is advised to stop aspirin one week before the procedure. 12/30/2023 Encounter for other preprocedural examination (ICD-10 - Z01.818) We discussed colonoscopy today. We discussed risks and benefits of the procedure today. He understands these and agrees to proceed. He is advised to stop aspirin one week before the procedure. 12/30/2023 Long-term use of aspirin therapy (ICD-10 - Z79.82) We discussed colonoscopy today. We discussed risks and benefits of the procedure today. He understands these and agrees to proceed. He is advised to stop aspirin one week before the procedure. Plan Of Treatment Future Test Test Name Order Date COLONOSCOPY 10/20/2012 COLONOSCOPY 12/30/2023 Insurance Providers Payer Name Payer Address Payer Phone Subscriber Number Group Number Insured Name Patient Relationship to Insured Coverage Start Date Coverage End Date [facility] [address] [facility] [phone] [id number] [place] LOAIZA Self - patient is the insured Medical (General) History Medical History History ICD Code Hypertension Coronary artery disease with cardiac yovanny nt placement 08/2022 Colonoscopy 01/24, normal, ten-year follo wup Hyperlipidemia LVH Type 2 diabetes mellitus Right shoulder pain Surgical History Surgery Date(Month/Year) Shoulder surgery cardiac stent -Dr. Hightower 2022
--- OUTSIDE RECORDS SUMMARY | 2024-09-12 15:56 | XMS_ITS ---
Author Organization [facility] Address [address] [place] [address] Care Team Providers Care Exchange Specialist Name Role Phone Gage Wynn MD Primary Care Provider Unavailab miah Medina Jr, Chavez Unavailable REASON FOR VISIT pcp new medication Encounters Encounter Location Date Provider Diagnosis [facility] [address] [place] [address] 01/07/2024 Chavez Medina Jr Plan Of Treatment No Information Progress Notes * KEEGAN CHRISTIECELSADOB: [birth year] (63 yo M)Acc No.[id number]:01/07/2024 Patient:?[place] CHRISTIE :1960???Age:63 Y???Sex:Male Address[place] [place], [address] * true * Date:? Generated for Cuca hansen/Catherine/eTransmitting on:?09/12/2024 03:56 PM EDT
--- OUTSIDE RECORDS SUMMARY | 2024-09-12 15:56 | XMS_ITS ---
Author Organization [facility] Address [address] [place] [address] Care Team Providers Care Corporate Law Assistant Name Role Phone Kingsley SNELL, Gage Primary Care Provider Unavailab Chavez Maria Jr Unavailable REASON FOR VISIT screening colon Encounters Encounter Location Date Provider Diagnosis [facility] [place] [address] [place], [place] [phone] 01/12/2024 Chavez Medina Jr Colon cancer screening Z12.11 Assessments Encounter Date Diagnosis (ICD Code) Assessment Notes Treatment Notes Treatment Clinical Notes Section Notes 01/12/2024 Colon cancer screening (ICD-10 - Z12.11) Plan Of Treatment No Information Progress Notes * CLEVELAND CHRISTIEDOB: [birth year] (64 yo M)Acc No.[id number]:01/12/2024 COLON WITH MAC Patient:?C[place] CHRISTIE Provider:?Chavez Medina MD :1960???Age:63 Y???Sex:Male Bao e:01/12/2024 Address:[id number] Pcp:Gage Wynn MD Subjective: * Chief Complaints: * ???1. Screening colon. * Medical History:? Objective: * Vitals:? Assessment: * Assessment: 1.?Colon cancer screening - Z12.11 (Primary)??? Plan: * Treatment: * Procedure Codes:?51673 DIAGN OSTIC COLONOSCOPY * * The named appointment provid er may or may not be the originator of this progress note, and it is not deemed complete until electronically signed by the appointment provider. Sign off status: Pending * Provider:?Chavez Medina MD Date:?0 01/12/2024 Generated for Cuca hansen/Catherine/Enrike on:?09/12/2024 03:55 PM EDT
== END 2024-09-12 14:12 | disposition home or self-care (01) ==
LOC: HO.HCS 13:30
PROVIDERS: PCP Family Medicine; Visit Provider Internal Medicine
DX: I25.10 Atherosclerotic heart disease of native coronary artery without angina pectoris (principal); E11.8 Type 2 diabetes mellitus with unspecified complications; I10 Essential (primary) hypertension; I51.7 Cardiomegaly; R74.8 Abnormal levels of other serum enzymes
CPT/HCPCS: 99214

== ENCOUNTER 2024-09-14 14:07 | Outpatient (REF) | payer OTHER, SELFPAY ==
--- OUTSIDE RECORDS SUMMARY | 2024-09-14 15:36 | XMS_ITS ---
Author Organization [facility] Address [address] [place] [address] Care Team Providers Care Senior Stereo Compiler Team Lead Name Role Phone Kingsley SNELL, Gage Primary Care Provider Unavailab Chavez Maria Jr Unavailable REASON FOR VISIT screening colon Encounters Encounter Location Date Provider Diagnosis [facility] [place] [address] [place], [place] [phone] 01/12/2024 Chavez Medina Jr Colon cancer screening Z12.11 Assessments Encounter Date Diagnosis (ICD Code) Assessment Notes Treatment Notes Treatment Clinical Notes Section Notes 01/12/2024 Colon cancer screening (ICD-10 - Z12.11) Plan Of Treatment No Information Progress Notes * CLEVELAND CHRISTIEDOB: [birth year] (64 yo M)Acc No.[id number]:01/12/2024 COLON WITH MAC Patient:?[place] CHRISTIE Provider:?Chavez Medina MD :1960???Age:63 Y???Sex:Male Bao e:01/12/2024 Address:[id number] Pcp:Gage Wynn MD Subjective: * Chief Complaints: * ???1. Screening colon. * Medical History:? Objective: * Vitals:? Assessment: * Assessment: 1.?Colon cancer screening - Z12.11 (Primary)??? Plan: * Treatment: * Procedure Codes:?48940 DIAGN OSTIC COLONOSCOPY * * The named appointment provid er may or may not be the originator of this progress note, and it is not deemed complete until electronically signed by the appointment provider. Sign off status: Pending * Provider:?Chavez Medina MD Date:?0 01/12/2024 Generated for Cuca hansen/Catherine/Enrike on:?09/14/2024 03:35 PM EDT
--- OUTSIDE RECORDS SUMMARY | 2024-09-14 15:36 | XMS_ITS | Patient Health Record ---
Author Organization [facility] Address [address] [place] [address] Care Team Providers Care Extracting Machine Operator Name Role Phone Kingsley SNELL, Gage Primary Care Provider Chavez Aguillon Jr Unavailable Allergies No Known Allergies Reason For Referral [...] Problem Status W/U Status Risk Notes Problem 926414726 Colon cancer screening (Z12.11) Active confirmed Problem 106647151 Encounter for other preprocedural examination (Z01.818) Active confirmed Problem 615308208 Long-term use of aspirin therapy (Z79.82) Active confirmed Vital Signs Blood pressure diastolic 00 mm Hg 12/30/2023 Height 70.75 in 12/30/2023 Blood pressure systolic 00 mm Hg 12/30/2023 Weight 218 lbs 12/30/2023 BMI 30.62 kg/m2 12/30/2023 Encounters Encounter Location Date Provider Diagnosis [facility] [place] [address] [place], [place] [phone] 01/12/2024 Chavez Medina Jr Colon cancer screening Z12.11 [facility] [address] [place] [address] 12/30/2023 Chavez Medina Jr Colon cancer screening Z12.11 ; Encounter for other preprocedural examination Z01.818 and Long-term use of aspirin therapy Z79.82 [facility] [address] [place] [address] 01/07/2024 Chavez Medina Jr [facility] [address] [place] [address] 01/10/2024 Chavez Medina Jr Assessments Encounter Date [...] Start Date Coverage End Date [facility] [address] [facility] [phone] [phone] [id number] [place] LOAIZA Self - patient is the insured Medical (General) History Medical History History ICD Code Hypertension Coronary artery disease with cardiac yovanny nt placement 08/2022 Colonoscopy 01/24, normal, ten-year follo wup Hyperlipidemia LVH Type 2 diabetes mellitus Right shoulder pain Surgical History Surgery Date(Month/Year) Shoulder surgery cardiac stent -Dr. Hightower 2022
--- OUTSIDE RECORDS SUMMARY | 2024-09-14 15:36 | XMS_ITS ---
Author Organization [facility] Address [address] [place] [address] Care Team Providers Care Line Repairer Name Role Phone Gage Wynn MD Primary Care Provider Unavailab miah Medina Jr, Chavez Unavailable REASON FOR VISIT robb sss ext [phone] Encounters Encounter Location Date Provider Diagnosis [facility] [address] [place] [address] 01/10/2024 Chavez Medina Jr Plan Of Treatment No Information Progress Notes * KEEGAN CHRISTIECELSADOB: [birth year] (63 yo M)Acc No.[id number]:01/10/2024 Patient:?[place] CHRISTIE :1960???Age:63 Y???Sex:Male Address:[address] [place], [place], [address] * true * Date:? Generated for Printi tyrone/Catherine/eTransmitting on:?09/14/2024 03:36 PM EDT
--- OUTSIDE RECORDS SUMMARY | 2024-09-14 15:36 | XMS_ITS | Data Portability ---
Author Organization [facility] [address] Address [address] [place] [address] Care Team Providers Care Ribbon Lap Machine Tender Name Role Phone KAREY SURESH Primary Care Provider [phone] Assessment No assessment recorded. Plan of Treatment Reminders Order Date Submit Date Provider Last Modified By Organization Details Last Modified Time Details Appointments None recorded. Lab None recorded. Referral None recorded. Procedures None recorded. Surgeries None recorded. Imaging None recorded. Medication Orders betamethaso ne dipropionat e 0.05 % topical ointment 2022 023 [email or web address] [id number], [address] [facility], [place], [address], 14:08:27 Patient TargetsNo targets recorded. Patient Instructions Encounter Date Encounter Id Patient Instructions Last Modified By Organization Details Last Modified Time 10/12/2022 [id number] hives: care instructions Not available 10/12/2022 14:08:22 poison elkin, oak, and sumac: care instructions Not available 10/12/2022 14:08:33 Reason for Referral None Reported. Problems Name Problem SNOMED Code Status Onset Date Resolution Date Notes Provider Name and Address Organization Details Recorded Time Hypertensive disorder 90469222 Active 2022 [facility] 3 13:39:36 Diabetes mellitus 35942397 Active 2022 [facility] 13:39:54 [...] Last Updated DateTime 180.34 cm 31.8 kg/m2 027084. 06 g 0 97 [degF] 18 /min [...] SNOMED-CT Code Diagnosis ICD10 Code Diagnosis Note [id number] Elie Lance [place] [address] [address] 10/12/2022 13:25:06 10/12/2022 14:09:25 Contact dermatitis caused by plants [id number] L25.5 Please follow up with PCP or [...] Goldstein Member ID Guarantor Name 10/12/2022 1 [facility] [id number] Maycol Gracia [id number] Maycol Gracia Notes Date Note Type Note Provider Name and Address Organization Details Recorded Time 10/12/2022 text/html UC Rash/Skin LesionReported bypatient.Location:[facility]; hands Duration:2 weeksNotes:has worked outside, not sure if in contact with poison elkin. No household contacts with simialr rash slightly itchy Elie Lance MD [address] [place], [address], [place] - [facility] 10/12/2022 14:14:25
--- OUTSIDE RECORDS SUMMARY | 2024-09-14 15:36 | XMS_ITS ---
Author Organization [facility] Address [address] [place] [address] Care Team Providers Care Sport Shoe Spike Assembler Name Role Phone Gage Wynn MD Primary Care Provider Unavailab miah Medina Jr, Chavez Unavailable [phone] REASON FOR VISIT pcp new medication Encounters Encounter Location Date Provider Diagnosis [facility] [address] [place] [address] 01/07/2024 Chavez Medina Jr Plan Of Treatment No Information Progress Notes * KEEGAN CHRISTIECELSADOB: [birth year] (63 yo M)Acc No.[id number]:01/07/2024 Patient:?[place] CHRISTIE :1960???Age:63 Y???Sex:Male Address:[address] [place], [address] * true * Date:? Generated for Cuca hansen/Catherine/eTransmitting on:?09/14/2024 03:36 PM EDT
[2024-09-19 23:48] LABS: CK-BB None Detected (None Detected); CK-MB 0 % (<5); CK-MM 97 % (95-100); Creatine Kinase Isoenzyme Itrp MACRO CK TYPE 1; Creatine Kinase,Total,Serum 577 U/L (22-308)
== END 2024-09-14 14:08 | disposition home or self-care (01) ==
LOC: HO.LAB 14:07
PROVIDERS: PCP Family Medicine; Visit Provider Internal Medicine
DX: I25.10 Atherosclerotic heart disease of native coronary artery without angina pectoris (principal)
CPT/HCPCS: 36415; 82552

== ENCOUNTER 2024-10-30 06:56 | Outpatient (REF) | payer OTHER, SELFPAY ==
[2024-10-30 07:50] LABS: Estimated Average Glucose 212 mg/dL; Hemoglobin A1C 247.5789 umol/L; Total Hemoglobin (HGBA1C) 3301.7014 umol/L
[2024-10-30 07:51] LABS: Alanine Aminotransferase 32 U/L (0-40); Anion Gap 14 (12-20); Aspartate Amino Transferase 36 U/L (5-37); Blood Urea Nitrogen 17 mg/dL (9-16); Carbon Dioxide 26 mmol/L (22-29); Chloride 103 mmol/L (96-108); Cholesterol 174 mg/dL (<200); Estimated Glomerular Filt Rate > 60; Glucose Fasting 229 mg/dL (60-99); HDL Cholesterol 33 mg/dL (>40); LDL Cholesterol Calculated 112 mg/dL (<100); Potassium 4.5 mmol/L (3.3-5.1); Sodium 138 mmol/L (135-145); Triglycerides 148 mg/dL (<150)
== END 2024-10-30 06:57 | disposition home or self-care (01) ==
LOC: HO.LAB 06:56
PROVIDERS: PCP Family Medicine; Visit Provider Family Medicine
DX: I10 Essential (primary) hypertension (principal); E11.9 Type 2 diabetes mellitus without complications; E78.00 Pure hypercholesterolemia, unspecified; Z79.899 Other long term (current) drug therapy
CPT/HCPCS: 36415; 80051; 80061; 82550; 82565; 82947; 83036; 84450; 84460; 84520

== ENCOUNTER 2025-02-21 14:20 | Outpatient (AMB) | payer OTHER, SELFPAY ==
--- OUTSIDE RECORDS SUMMARY | 2024-01-12 10:00 | XMS_ITS ---
Author Organization [facility] Address [address] [place] [phone] Care Team Providers Care Loan Adviser Name Role Phone Kingsley (RETIRED) , Gage Primary Care Provider Unavailable Chavez Medina Jr Unavailable REASON FOR VISIT screening colon Encounters Encounter Location Date Provider Diagnosis [facility] Outpatient [address] [place] [id number] 01/12/2024 Chavez Medina Jr Colon cancer screening Z12.11 Assessments Encounter Date Diagnosis (ICD Code) Assessment Notes Treatment Notes Treatment Clinical Notes Section Notes 01/12/2024 Colon cancer screening (ICD-10 - Z12.11) Plan Of Treatment No Information Progress Notes * CLEVELAND CHRISTIEDOB: [birth year] (64 yo M)Acc No.[id number]:01/12/2024 COLON WITH MAC Patient: CLEVELAND CARPENTER Provider: Josh Medina MD :1960 A ge:63 Y S ex:Male Date:01/12/2024 Address:[address] [place], [place] [address] [id number] Pcp:Gage Wynn (RETIRED) MD Subjective: * Chief Complaints: * 1 . Screening colon. * Medical History: Objective: * Vitals: Assessment: * Assessment: 1. C olon cancer screening - Z12.11 (Primary) Plan: * Treatment: * Procedure Codes: 4 5378 DIAGNOSTIC COLONOSCOPY * * The named appointment provid er may or may not be the originator of this progress note, and it is not deemed complete until electronically signed by the appointment provider. Sign off status: Pending * Provider: Josh Medina MD Date: 0 01/12/2024 Generated for Cuca hansen/Catherine/Enrike on: 0 02/21/2025 05:39 PM EDT
[2025-02-21 14:26] VITALS: BP 130/68; PULSE 74; BMI 32.3
--- NOTE | 2025-02-21 14:26 | A.OFFVIS_ITS ---
Vital Signs 02/21/25 14:26 Height 5 ft 10 in Weight 224 lb 13.944 oz BMI 32.3 BP 130/68 Blood Pressure Location Lt brachial Position Sitting Pulse 74 Pulse Source Monitor Intake Visit Reasons: 4 mth w/ fup Allergies No Known Allergies Allergy (Verified 07/04/24 10:20) Medication List - Last Reconciled 02/21/25 by Hector Hightower MD albuterol sulfate 90 mcg/actuation 1 inh inhalation QID PRN aspirin 81 mg PO DAILY atorvastatin 40 mg PO DAILY clopidogrel 75 mg PO DAILY metformin 500 mg PO DAILY valsartan-hydrochlorothiazide 160-25 mg 1 tab PO DAILY HPI Comments Details: Maycol returns for follow-up regarding coronary disease. In the past, he was having shortness of breath which led to a comprehensive workup and eventually cardiac catheterization. Had LAD stenting. He was feeling okay but more recently primary care physician's office had called us stating that he was complaining of chest pain. Then seen by our nurse practitioner who ordered a stress test which was reported positive ischemia. Following that, he underwent another catheterization in 08/2024 and diagonal stenting. Since last seen, he states he feels good. No new concerns. No angina. [facility] Medical History Chest pain on exertion Sleep apnea Right shoulder pain HTN (hypertension) Essential hypertension Type 2 diabetes mellitus with unspecified complications Surgical History History of heart artery stent H/O colonoscopy Hx of cardiac cath H/O shoulder surgery Family History Father No problems noted. Mother No problems noted. Social History Alcohol intake: current Alcohol intake frequency: a few times a week Patient Tobacco Use Status: Never used Tobacco Review of Systems Const Denies weakness ENT Denies dizziness Card Denies chest pain, Denies chest pain with activity, Denies syncope, Denies rapid heart rate, Denies pedal edema, Denies edema, Denies leg edema, Denies lightheadedness, Denies palpitations, Denies dyspnea, Denies dyspnea on exertion and Denies orthopnea Resp Denies cough, Denies dyspnea and Denies dyspnea on exertion GI Denies hematochezia and Denies change in stool character Musc Denies abnormal gait, Denies muscle cramps, Denies muscle weakness, Denies numbness, Denies radiating pain into limb and Denies tingling Neuro Denies abnormal gait, Denies dizziness, Denies syncope, Denies numbness, Denies tingling and Denies weakness Endo Denies palpitations Physical Exam Vital Signs: Last Vital Signs Pulse 74 02/21/25 14:26 BP 130/68 02/21/25 14:26 BMI result Body Mass Index 32.3 Const General: comfortable and no acute distress Orientation/consciousness: patient oriented x3 HEENT Other: Unremarkable Head: Yes normal to inspection Neck Neck: Yes normal visual inspection Chest Chest palpation & inspection: normal inspection of the chest Resp Auscultation: clear to auscultation bilaterally Cardio Palpation: normal PMI Heart sounds: S1 normal heart sound present, S2 normal heart sound present, no gallops, no murmurs and no rubs GI Palpation (GI): Soft to palpation Back/Spine/Pelvis Other: unremarkable Skin General skin exam: no rashes or lesions noted Neuro General: patient oriented x3 Extrem General: Yes normal to inspection Psych Mental Status: mental status grossly normal Office Procedures EKG Details: EKG with underlying sinus rhythm at 74/Min; nonspecific ST-[place] changes; [place]. [address]-Nmhrqssnrgcbqinnr, Complete Assessment & Plan Assessment & Plan (1) Atherosclerotic cardiovascular disease: Code(s): I25.10 - Atherosclerotic heart disease of [place] coronary artery without angina pectoris Category: Medical (2) Type 2 diabetes mellitus with unspecified complications: Code(s): E11.8 - Type 2 diabetes mellitus with unspecified complications Category: Medical (3) Essential hypertension: Code(s): I10 - Essential (primary) hypertension Category: Medical (4) LVH (left ventricular hypertrophy): Code(s): I51.7 - Cardiomegaly Category: Medical (5) High serum creatine kinase (CK): Code(s): R74.8 - Abnormal levels of other serum enzymes Category: Medical Plan Cardiac studies reviewed. In the perfusion imaging study, reported to have mild intensity [id number]-[id number] sinus anterolateral ischemia. EKG reported to be positive for ischemia. In the cardiac catheterization 08/2024, severe ostial diagonal stenosis status post PCI. Mild InStent restenosis in the LAD stent. Overall, coronary disease, prior LAD stent and more recently diagonal stent. Doing well. Continue aspirin/Plavix. Per cath recommendations, to continue Plavix after the 1st year and stop aspirin. He was on long-acting nitrates and beta-blockers but no longer in his LEs. For blood pressure, on valsartan/hydrochlorothiazide. He was not on statins in the past because of history of myopathy/chronically high CK levels. However, it seems that he has been put on statins recently. Repeat CK is elevated but in the same range as before. In the past, Repatha was suggested but he does not like injectables. For diabetes, he is on metformin. Poorly controlled with hemoglobin A1c is 9%. Most prior hemoglobin A1c levels are quite high. This can lead to high likelihood of various diabetic complications including vascular disease. He also has aortic sclerosis but does not want any echocardiogram for follow-up. We will readdress this in the future visit. Coding Level of Care Code Est Pt Level 4 (10651) Complex EM visit Add On G2211 Diagnoses Atherosclerotic cardiovascular disease I25.10 Type 2 diabetes mellitus with unspecified complications E11.8 Essential hypertension I10 LVH (left ventricular hypertrophy) I51.7 High serum creatine kinase (CK) R74.8 CPT Codes EKG - CPT: 94440-Wtzjntulybzzkteex, Complete ([id number])
--- OUTSIDE RECORDS SUMMARY | 2025-02-21 17:40 | XMS_ITS | Patient Health Record ---
Author Organization [facility] Address [address] [place] [address] Care Team Providers Care Coarse Wire Drawer Name Role Phone Kingsley (RETIRED) Gage SNELL Primary Care Provider Unavailable Chavez Medina Jr Unavailable [phone] Allergies No Known Allergies Reason For Referral [...] Problem Status W/U Status Risk Notes Problem [id number] Colon cancer screening (Z12.11) Active confirmed Problem 321946823 Encounter for other preprocedural examination (Z01.818) Active confirmed Problem [id number] Long-term use of aspirin therapy (Z79.82) Active confirmed Plan Of Treatment Future Test Test Name Order Date COLONOSCOPY 10/20/2012 COLONOSCOPY 12/30/2023 Insurance Providers Payer Name Payer Address Payer Phone Subscriber Number Group Number Insured Name Patient Relationship to Insured Coverage Start Date Coverage End Date [facility] [address] [facility] [phone] [id number] [place] LO[place]ZA Self - patient is the insured Medical (General) History Medical History History ICD Code Hypertension Coronary artery disease with cardiac yovanny nt placement 08/2022 Colonoscopy 8/13, normal, ten-year follo wup Hyperlipidemia LVH Type 2 diabetes mellitus Right shoulder pain Surgical History Surgery Date(Month/Year) Shoulder surgery cardiac stent -Dr. Hightower 2022
== END 2025-02-21 14:46 | disposition home or self-care (01) ==
LOC: HO.HCS 14:21
PROVIDERS: PCP Family Medicine; Visit Provider Internal Medicine
DX: I25.10 Atherosclerotic heart disease of native coronary artery without angina pectoris (principal); E11.8 Type 2 diabetes mellitus with unspecified complications; I10 Essential (primary) hypertension; I51.7 Cardiomegaly; R74.8 Abnormal levels of other serum enzymes
CPT/HCPCS: 93010; 99214; G2211

== ENCOUNTER → 2025-02-21 14:20 | Outpatient (BNVA) | payer OTHER, SELFPAY | PROVIDERS: PCP Family Medicine; Visit Provider Internal Medicine | DX: I25.10 Atherosclerotic heart disease of native coronary artery without angina pectoris (principal); I10 Essential (primary) hypertension; I51.7 Cardiomegaly; E11.8 Type 2 diabetes mellitus with unspecified complications; R74.8 Abnormal levels of other serum enzymes; R94.31 Abnormal electrocardiogram [ECG] [EKG] | CPT/HCPCS: 93005 ==

== ENCOUNTER 2025-03-08 14:22 | Outpatient (REF) | payer OTHER, SELFPAY ==
[2025-03-08 15:44] LABS: Total Hemoglobin (HGBA1C) 3285.5284 umol/L
== END 2025-03-08 14:23 | disposition home or self-care (01) ==
LOC: HO.LAB 14:22
PROVIDERS: PCP Student in an Organized Health Care Education/Training Program; Visit Provider Student in an Organized Health Care Education/Training Program
DX: I10 Essential (primary) hypertension (principal); I25.10 Atherosclerotic heart disease of native coronary artery without angina pectoris; E78.49 Other hyperlipidemia; E11.8 Type 2 diabetes mellitus with unspecified complications
CPT/HCPCS: 36415; 83036; 96127

== ENCOUNTER 2025-03-08 14:22 | Outpatient (AMB) | payer OTHER, SELFPAY ==
--- OUTSIDE RECORDS SUMMARY | 2024-01-12 10:00 | XMS_ITS ---
Author Organization [facility] Address [address] [place] [phone] Care Team Providers Care Psychiatry Teacher Name Role Phone Kingsley (RETIRED) , Gage Primary Care Provider Unavailable Chavez Medina Jr Unavailable REASON FOR VISIT screening colon Encounters Encounter Location Date Provider Diagnosis [facility] Outpatient [address] [place] [id number] 01/12/2024 Chavez Medina Jr Colon cancer screening Z12.11 Assessments Encounter Date Diagnosis (ICD Code) Assessment Notes Treatment Notes Treatment Clinical Notes Section Notes 01/12/2024 Colon cancer screening (ICD-10 - Z12.11) Plan Of Treatment No Information Progress Notes * CLEVELAND CHRISTIEDOB: [birth year] (64 yo M)Acc No.[id number]:01/12/2024 COLON WITH MAC Patient: CLEVELAND CARPENTER Provider: Josh Medina MD :1960 A ge:63 Y S ex:Male Date:01/12/2024 Address:[address] [place], [place] [address] [id number] Pcp:Gage Wynn (RETIRED) MD Subjective: * Chief [...] 01/12/2024 Generated for Cuca hansen/Catherine/Enrike on: 0 03/08/2025 06:46 PM EDT
--- NOTE | 2025-03-08 14:24 | A.OFFPC_ITS ---
Vital Signs 03/08/25 14:31 Height 5 ft 10 in Weight 227 lb BMI 32.6 BP 145/70 H Blood Pressure Location Rt brachial Position Sitting Respiration 18 Pulse 89 Pulse Source Pulse Oximeter Temp 97.8 F Temp Source Temporal Artery Scan Pulse Oximetry (%) 97 Oxygen Delivery Method Room Air Intake Visit Reasons: 4 Month F/U / Dr Wynn Charge Rn Required: No Accompanied by: Self / Same As Patient Allergies No Known Allergies Allergy (Verified 03/08/25 14:24) Medication List - Last Reconciled 03/08/25 by Simeon Kennedy MD albuterol sulfate 90 mcg/actuation 1 inh inhalation QID PRN aspirin 81 mg PO DAILY atorvastatin 40 mg PO DAILY blood sugar diagnostic (FreeStyle Lite Strips) As directed metformin 500 mg PO DAILY valsartan-hydrochlorothiazide 160-25 mg 1 tab PO DAILY Tobacco use date assessed: 03/08/25 Dental Screening Dental Screen Date: 03/08/25 Did you have a dental visit in the last 12 months?: Yes Did you have a dental problem in the last 6 months where you did not have access to dental care?: No Was dental information given to patient?: Patient has dentist HPI HPI Comments History of Present Illness Details The patient is a 64-year-old male presenting for a wellness visit and management of chronic conditions. He has a history of coronary artery disease requiring the placement of two stents. However, no myocardial infarctions have occurred. During previous evaluations, hyperlipidemia was identified, with an LDL level of 112 mg/dL in October. The patient was prescribed atorvastatin 40 mg, but adherence has been intermittent. Additionally, the patient has been diag nosed with Type 2 Diabetes Mellitus, currently treated with metformin 1500 mg daily. In October, his HbA1c decreased from 10% to 9%. Despite this improvement, further reduction is needed for optimal diabetes control. The patient also has a history of hypertension currently managed with hydrochlorothiazide and valsartan 25/160 mg. At home, he reports blood pressure readings of 117/77 mmHg when measured twice weekly, suggesting generally good control. The patient checks his blood pressure and blood sugar intermittently at home, reporting post-afternoon glucose readings of approximately 117 mg/dL. There are no reported symptoms of hypo- or hyperglycemia, and he denies any surgical history apart from the placement of stents. He does not report any new health concerns and wishes to optimize the management of his existing conditions. 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 Mother No problems noted. 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 1. Little interest or pleasure in doing things: not at all 2. Feeling down, depressed, or hopeless: not at all 3. Trouble falling or staying asleep, or sleeping too much: not at all 4. Feeling tired or having little energy: not at all 5. Poor appetite or overeating: not at all 6. Feeling bad about yourself - or that you are a failure or have let yourself or your family down: not at all 7. Trouble concentrating on things, such as reading the newspaper or watching television: not at all 8. Moving or speaking so slowly that other people could have noticed. Or the opposite - being so fidgety or restless that you have been moving around a lot more than usual: not at all 9. Thoughts that you would be better off or of hurting yourself in some way: not at all Total score: 0 Depression Screening Interpretation: Negative Depression Screening Done: Yes [id number] - PHQ-9 Billing: Yes Source: Developed by Drs. Teo Aldana, Adilia Arreola, Abdi Amin and colleagues, with an educational chidi from [employer]. Thrive Questionnaire Date Thrive assessed: 03/08/25 I am a: Patient What is your living situation today?: I have a steady place to live Within the past 12 months, did the food you bought not last and you didn't have the money to get more?: Never true Within the past 12 months, did you worry whether your food would run out before you got money to buy more?: Never true Do you have trouble paying for medicines?: No Do you have trouble getting transportation to medical appointments?: No Do you have trouble paying your heating and electricity bill?: No Do you have trouble taking care of your child, family member or friend?: No Do you have trouble with day-to-day activities such as bathing, preparing meals, shopping, managing finances, etc.?: No Are you currently unemployed and looking for a job?: No Are you interested in more education?: No THRIVE Score: 0 AUDIT C Alcohol Use Questionnaire (AUDIT-C) 1. How often do you have a drink containing alcohol?: 2-4 times a month 2. How many drinks containing alcohol do you have on a typical day when you are drinking?: 3 or 4 3. How often do you have six or more drinks on one occasion?: Never Total Score: 3 Score Reviewed/Action Taken: Yes NANCY-7 AMB Questionnaire NANCY-7 Date NANCY - 7 assessed: 03/08/25 Feeling nervous, anxious, or on edge: 0 = Not at all Not being able to stop or control worryin = Not at all Worrying too much about different things: 0 = Not at all Trouble relaxin = Not at all Being so restless that it is hard to sit still: 0 = Not at all Becoming easily annoyed or irritable: 0 = Not at all Feeling afraid as if something awful might happen: 0 = Not at all Total NANCY-7 score (0-4 normal; 5-9 mild; 10-14 moderate; 15-21 severe): 0 Source: Developed by Drs. Teo Aldana, Adilia Arreola, Abdi Amin and colleagues, with an educational chidi from [employer]. NANCY-7 Assessment Billing NANCY-7 Assessment Tool: NANCY-7 Assessment 35235 Review of Systems Const Details: - Cardiovascular: Denies chest pain, palpitations - Endocrine: Denies symptoms of hyper/hypoglycemia - Neurological: Denies headaches, dizziness - Ophthalmological: Denies vision changes; recent examination was normal - Gastrointestinal: Denies changes in bowel habits All systems reviewed & are unremarkable except as reviewed in HPI and above Physical exam (Primary Care) Vital Signs: Last Vital Signs Temp 97.8 F 03/08/25 14:31 Pulse 89 03/08/25 14:31 Resp 18 03/08/25 14:31 BP 145/70 H 03/08/25 14:31 Pulse Ox 97 03/08/25 14:31 Oxygen Delivery Method Room Air 03/08/25 14:31 BMI result Body Mass Index 32.6 Tobacco/Smoking Status: Tobacco use Status Tobacco use date assessed 03/08/25 03/08/25 14:36 Patient Tobacco Use Status Never used Tobacco 03/08/25 14:36 e-Cigarette/Vaping Use Never Used 03/08/25 14:36 Depression Screening Interpretation: Negative Const Other: General: Alert and oriented, Well nourished, No acute distress. Eye: Pupils are equal, round and reactive to light, Intact accommodation, Extraocular movements are intact, Normal conjunctiva, Vision unchanged. HENT: Normocephalic, Atraumatic, Tympanic membranes are clear, Normal hearing, Oral mucosa is moist, No pharyngeal erythema, Ear canals patent. Respiratory: Lungs CTA bilaterally, No wheeze, Respirations are non-labored. Cardiovascular: Regular rate, Regular rhythm, S1 auscultated, S2 auscultated, No murmur, Good pulses equal in all extremities, Normal peripheral perfusion, No edema. Gastrointestinal: Soft, Non-tender, Non-distended, Normal bowel sounds, No organomegaly. Musculoskeletal: Normal range of motion, Normal strength, No tenderness, No swelling, No deformity, Normal gait. Integumentary: Warm, Dry, [place], Intact. Neurologic: Alert, Oriented, Normal sensory, Normal motor function, No focal d efects, Cranial Nerves II-XII are grossly intact, Normal deep tendon reflexes. Psychiatric: Cooperative, Appropriate mood & affect, Normal judgment. Coding Level of Care Code Est Pt Level 4 (49368) Complex EM visit Add On G2211 Diagnoses Essential hypertension I10 Coronary artery disease involving [place] coronary artery of [place] heart without angina pectoris I25.10 Associated angina: without angina Coronary Disease-Associated Artery/Lesion type: [place] artery [place] vs. transplanted heart: [place] heart Other hyperlipidemia E78.49 Hyperlipidemia type: other hyperlipidemia Type 2 diabetes mellitus with unspecified complications E11.8 Additional Codes PHQ-9 - 83585 - PHQ-9 Billing: Yes ([id number]) NANCY-7 Assessment Billing - NANCY-7 Assessment Tool: NANCY-7 Assessment 66703 ([id number]) Assessment & Plan Assessment & Plan (1) Essential hypertension: Comment: - Continue current regimen of hydrochlorothiazide and valsartan. - Monitor home blood pressure recordings regularly to ensure control. (Home pressures ranging between 110 and 120) Code(s): I10 - Essential (primary) hypertension Category: Medical (2) Coronary artery disease: Comment: S/p PCI x2 to LAD & Ostial - Continue aspirin therapy. - Follow-up with business objects consultant is scheduled for August. - Encourage regular monitoring of blood pressure and lipids. Code(s): I25.10 - Atherosclerotic heart disease of [place] coronary artery without angina pectoris Category: Medical Qualifiers: Associated angina: without angina Coronary Disease-Associated Artery/Lesion type: [place] artery [place] vs. transplanted heart: [place] heart Qualified Code(s): I25.10 - Atherosclerotic heart disease of [place] coronary artery without angina pectoris (3) Hyperlipidemia: Comment: - Reinstitute atorvastatin 40 mg every night for LDL control. (Discontinued given confusion between metformin and statin) - Discussed benefits of reducing LDL to decrease cardiovascular event risk. Code(s): E78.5 - Hyperlipidemia, unspecified Category: Medical Qualifiers: Hyperlipidemia type: other hyperlipidemia Qualified Code(s): E78.49 - Other hyperlipidemia (4) Type 2 diabetes mellitus with unspecified complications: Comment: - Ordered blood work to reassess glucose control. - Encourage dietary modifications and increased monitoring of blood sugars. - Consider medication adjustments pending lab results. (May increase to metformin 1000 based on A1c results) and repeat in 3 months for further titration Code(s): E11.8 - Type 2 diabetes mellitus with unspecified complications Category: Medical Plan: Health maintenance: - Annual ophthalmology exam recommended and completed recently. - Blood work for metabolic control ordered. - Discussion on dietary modification to aid in diabetes and hyperlipidemia management. Patient was informed and verbally consented to the use of an ambient scribe for clinic note documentation during this visit. Plan During today's visit, I reviewed the patient's history of coronary artery disease, hyperlipidemia, Type 2 Diabetes Mellitus, and hypertension. We have reinstated atorvastatin 40 mg to manage his cholesterol levels and mitigate cardiovascular risk. The importance of strict adherence to prescribed medications, diet modifications, and regular home monitoring of blood pressure and glucose levels was discussed. The patient was made aware of the potential complications of uncontrolled diabetes and hypertension, including neuropathy and cardiovascular risks. Future HbA1c testing will guide any necessary medication adjustments. I stressed the importance of establishing consistency in monitoring these chronic conditions. Follow-up in three months is planned, aligning with new blood work evaluation. Discussions concluded with the reassurance of the benefits and necessity of these management plans. Orders: Orders Hemoglobin A1c Today E11.8 - Type 2 diabetes mellitus with unspecified complications Hemoglobin A1c 3 Months E11.8 - Type 2 diabetes mellitus with unspecified complications Medications: Refilled atorvastatin 40 mg PO DAILY 90 tabs 3RF Patient Instructions: - Restart atorvastatin 40 mg every night. - Continue taking metformin and blood pressure medications as prescribed. - Monitor blood glucose and blood pressure at home regularly. - Bring records of blood pressure readings to next appointment. - Schedule and complete blood work as directed. - Maintain a healthy diet, reducing cholesterol and carbohydrate intake. - Reduce alcohol consumption to below current levels. - Return in three months or sooner if concerns arise.
[2025-03-08 14:31] VITALS: BP 145/70; PULSE 89; RESP 18; TEMP 36.6; O2SAT 97; BMI 32.6
--- OUTSIDE RECORDS SUMMARY | 2025-03-08 18:46 | XMS_ITS | Patient Health Record ---
Author Organization [facility] Address [address] [place] [address] Care Team Providers Care Industrial Waste Inspector Name Role Phone Kingsley (RETIRED) Gage SNELL Primary Care Provider Unavailable Chavez Medina Jr Unavailable [phone] Allergies No Known Allergies Reason For [...] Problem Status W/U Status Risk Notes Problem [id number] Colon cancer screening (Z12.11) Active confirmed Problem 627247935 Encounter for other preprocedural examination (Z01.818) Active confirmed Problem 187479412 Long-term use of aspirin therapy (Z79.82) Active confirmed Plan Of Treatment Future Test Test Name Order Date COLONOSCOPY 10/20/2012 COLONOSCOPY 12/30/2023 Insurance Providers Payer Name Payer Address Payer Phone Subscriber Number Group Number Insured Name Patient Relationship to Insured Coverage Start Date Coverage End Date [facility] [address] [facility] [id number] [place] LOAIZA Self - patient is the insured Medical (General) History Medical History History ICD Code Hypertension Coronary artery disease with cardiac yovanny nt placement 08/2022 Colonoscopy 8/13, normal, ten-year follo wup Hyperlipidemia LVH Type 2 diabetes mellitus Right shoulder pain Surgical History Surgery Date(Month/Year) Shoulder surgery cardiac stent -Dr. Hightower 2022
== END 2025-03-08 15:00 | disposition home or self-care (01) ==
PROVIDERS: PCP Student in an Organized Health Care Education/Training Program; Visit Provider Student in an Organized Health Care Education/Training Program
DX: I10 Essential (primary) hypertension (principal); I25.10 Atherosclerotic heart disease of native coronary artery without angina pectoris; E78.49 Other hyperlipidemia; E11.8 Type 2 diabetes mellitus with unspecified complications

== ENCOUNTER 2025-05-21 14:25 | Outpatient (REF) | payer OTHER, SELFPAY ==
--- OUTSIDE RECORDS SUMMARY | 2024-01-12 09:00 | XMS_ITS ---
Author Organization [facility] Address [address] [place] [id number] Care Team Providers Care Marine Cargo Inspector Name Role Phone Kingsley (RETIRED) , Gage Primary Care Provider Unavailable Chavez Medina Jr Unavailable [phone] REASON FOR VISIT screening colon Encounters Encounter Location Date Provider Diagnosis [facility] [address] [place] [id number] 01/12/2024 Chavez Medina Jr Colon cancer screening Z12.11 Assessments Encounter Date Diagnosis (ICD Code) Assessment Notes Treatment Notes Treatment Clinical Notes Section Notes 01/12/2024 Colon cancer screening (ICD-10 - Z12.11) Plan Of Treatment No Information Progress Notes * CLEVELAND CHRISTIEDOB: [birth year] (65 yo M)Acc No.[id number]:01/12/2024 COLON WITH MAC Patient: CLEVELAND CARPENTER Provider: Josh Medina MD :1960 A ge:63 Y S ex:Male Date:01/12/2024 Address:[address] [place], [place] [address] [id number] Pcp:Gage Wynn (RETIRED) MD Subjective: * Chief Complaints: * S creening colon Assessment: * Assessment: 1. C olon cancer screening - Z12.11 (Primary) Plan: * Procedure Codes: 4 5378 DIAGNOSTIC COLONOSCOPY Billing Information: * Procedure Codes: 11719 DIAGNOSTIC COLONOSCOPY. * The named appointment provid er may or may not be the originator of this progress note, and it is not deemed complete until electronically signed by the appointment provider. Sign off status: Pending * Provider: Josh Medina MD Date: 0 01/12/2024 Generated for Cuca hansen/Catherine/Enrike on: 1 07/23/2024 12:36 AM EST
--- OUTSIDE RECORDS SUMMARY | 2025-05-22 00:38 | XMS_ITS | Patient Health Record ---
Author Organization [facility] Address [address] [place] [address] Care Team Providers Care Supervisor Waterworks Name Role Phone Kingsley (RETIRED) Gage SNELL Primary Care Provider Unavailable Chavez Medina Jr Unavailable [phone] Allergies No Known Allergies Reason For Referral No Information Medications Medication SIG (Take, Route, Frequency, Duration) Notes Start Date End Date Status Aspirin Low Dose 81 MG Tablet Delayed Release TAKE 1 TABLET BY MOUTH EVERY DAY Oral; Duration: 90 Active Valsartan-hydroCHLOROthiaz casie 160-25 MG Tablet Oral; Duration: 90 A ctive MiraLax (colon prep) 17 GM/SCOOP Powder mixed with Gatorade or Crystal Light Orally begin at 5:00 p.m. 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[employer] Problems Problem Type SNOMED Code ICD Code Onset Dates Problem Status W/U Status Risk Notes Problem Colon cancer screening (940635812) Colon cancer screening (Z12.11) Active confirmed Problem Pre-procedure evaluation check (516977666) Encounter for other preprocedural examination (Z01.818) Active confirmed Problem Long-term current use of antiplatelet drug (331097360843200 ) Long-term use of aspirin therapy (Z79.82) Active confirmed Plan Of Treatment Future Test Test Name Order Date COLONOSCOPY 10/20/2012 COLONOSCOPY 12/30/2023 Insurance Providers Payer Name Payer Address Payer Phone Subscriber Number Group Number Insured Name Patient Relationship to Insured Coverage Start Date Coverage End Date [facility] [address] [facility] [phone] [id number] [place] LO[place] Self - patient is the insured Medical (General) History Medical History History ICD Code Hypertension Coronary artery disease with cardiac yovanny nt placement 08/2022 Colonoscopy 01/24, normal, ten-year follo wup Hyperlipidemia LVH Type 2 diabetes mellitus Right shoulder pain Surgical History Surgery Date(Month/Year) Shoulder surgery cardiac stent -Dr. Hightower 2022
== END 2025-05-21 14:26 | disposition home or self-care (01) ==
LOC: HO.LAB 14:25
PROVIDERS: PCP Student in an Organized Health Care Education/Training Program; Visit Provider Student in an Organized Health Care Education/Training Program
DX: I10 Essential (primary) hypertension (principal); E11.8 Type 2 diabetes mellitus with unspecified complications; E78.49 Other hyperlipidemia; I25.10 Atherosclerotic heart disease of native coronary artery without angina pectoris
CPT/HCPCS: 36415; 83036

== ENCOUNTER 2025-05-21 14:25 | Outpatient (AMB) | payer OTHER, SELFPAY ==
--- NOTE | 2025-05-21 14:33 | MHC.PC.OV ---
Vital Signs 05/21/25 14:40 Height 5 ft 9.88 in Weight 226 lb BMI 32.5 BP 178/80 H Blood Pressure Location Lt brachial Position Sitting Respiration 18 Pulse 88 Pulse Source Pulse Oximeter Temp 97.8 F Temp Source Temporal Artery Scan Pulse Oximetry (%) 98 Oxygen Delivery Method Room Air Intake Visit Reasons: 3 month f/u-ok by Dr. Kennedy Nail Artist Required: No Accompanied by: Self / Same As Patient Allergies No Known Allergies Allergy (Verified 05/21/25 14:34) Medication List - Last Reconciled 05/21/25 by Simeon Kennedy MD aspirin 81 mg PO DAILY atorvastatin (Lipitor) 40 mg PO BEDTIME blood sugar diagnostic (FreeStyle Lite Strips) As directed clopidogrel 75 mg PO DAILY metformin 1,000 mg PO BID 90 days valsartan-hydrochlorothiazide 160-25 mg 1 tab PO DAILY Tobacco use date assessed: 03/08/25 Dental Screening Dental Screen Date: 03/08/25 HPI HPI Comments History of Present Illness Details History of Present Illness The patient is a 65 year old male presenting for follow-up and management of multiple chronic conditions including hypertension, type 2 diabetes, coronary artery disease, and hypercholesterolemia. Regarding his hypertension, the patient reports taking his valsartan 160 mg and hydrochlorothiazide in the morning. He states his blood pressure is usually lower than the reading of 178/80 mmHg in the office, with the highest it has ever been being 140 mmHg. For his type 2 diabetes mellitus, his metformin was increased to 1000 mg twice daily at his last visit. His last A1c in February was 10.3%. The patient has a history of coronary artery disease, described as a clog, for which he takes aspirin and Plavix. He denies having had a heart attack. For his hypercholesterolemia, his last bad cholesterol (LDL) was 112. He has been non-adherent with his atorvastatin prescription, which he confused with metformin, but states he is now taking it. Medical History: - Hypertension - Type 2 Diabetes Mellitus - Coronary artery disease - Hypercholesterolemia Medications: - Valsartan 160 mg and hydrochlorothiazide for hypertension. - Aspirin for coronary artery disease. - Plavix for coronary artery disease. - Metformin 1000 mg twice daily for type 2 diabetes mellitus. - Atorvastatin 40 mg for hypercholesterolemia (patient reports non-adherence). Diagnostic Results: - Labs: Previous A1c was 10.3% in February. - Labs: Previous LDL cholesterol was 112 mg/dL. [facility] Medical History Chest pain on exertion Sleep apnea Right shoulder pain HTN (hypertension) Essential hypertension Type 2 diabetes mellitus with unspecified complications Surgical History History of heart artery stent H/O colonoscopy Hx of cardiac cath H/O shoulder surgery Family History Father No problems noted. Mother No problems noted. 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 Teo Aldana, Adilia Arreola, Abdi Amin and colleagues, with an educational chidi from [employer]. Review of Systems Narrative Review of Systems - General: Reports feeling good. - Genitourinary: Reports normal urination. - Gastrointestinal: Reports normal bowel movements. - Musculoskeletal: Denies extremity swelling. All systems reviewed & are unremarkable except as reviewed in HPI and above Physical exam (Primary Care) Vital Signs: Last Vital Signs Temp 97.8 F 05/21/25 14:40 Pulse 88 05/21/25 14:40 Resp 18 05/21/25 14:40 BP 178/80 H 05/21/25 14:40 Pulse Ox 98 05/21/25 14:40 Oxygen Delivery Method Room Air 05/21/25 14:40 Care Plan Goal for BP management: Repeat pressure at 150 Next steps: Amlodipine intiated BMI result Body Mass Index 32.5 Tobacco/Smoking Status: Tobacco use Status Tobacco use date assessed 03/08/25 05/21/25 14:34 Patient Tobacco Use Status Never used Tobacco 05/21/25 14:34 e-Cigarette/Vaping Use Never Used 05/21/25 14:34 Thrive Assessment: Date of Thrive Assessment Date Thrive assessed 03/08/25 05/21/25 14:34 Narrative Physical Exam General: +Alert and oriented, Well nourished, No acute distress. Eye: Pupils are equal, round and reactive to light, Intact accommodation, Extraocular movements are intact, Normal conjunctiva, Vision unchanged. HENT: Normocephalic, Atraumatic, Tympanic membranes are clear, Normal hearing, Oral mucosa is moist, No pharyngeal erythema, Ear canals patent. Respiratory: Lungs CTA bilaterally, No wheeze, Respirations are non-labored. Cardiovascular: Regular rate, Regular rhythm, S1 auscultated, S2 auscultated, No murmur, Good pulses equal in all extremities, Normal peripheral perfusion, No edema. Gastrointestinal: Soft, Non-tender, Non-distended, Normal bowel sounds, No organomegaly. Musculoskeletal: Normal range of motion, Normal strength, No tenderness, No swelling, No deformity, Normal gait. Integumentary: Warm, Dry, [place], Intact. Neurologic: Alert, Oriented, Normal sensory, Normal motor function, No focal defects, Cranial Nerves II-XII are grossly intact, Normal deep tendon reflexes. Psychiatric: Cooperative, Appropriate mood & affect, Normal judgment. Coding Level of Care Code Est Pt Level 4 (76870) Complex visit Add On G2211 Diagnoses Essential hypertension I10 Type 2 diabetes mellitus with unspecified complications E11.8 Other hyperlipidemia E78.49 Hyperlipidemia type: other hyperlipidemia Coronary artery disease involving [place] coronary artery of [place] heart without angina pectoris I25.10 Coronary Disease-Associated Artery/Lesion type: [place] artery [place] vs. transplanted heart: [place] heart Associated angina: without angina Assessment & Plan Assessment & Plan (1) Essential hypertension: Comment: - The patient presented with an elevated blood pressure of 178/80 mmHg, which improved slightly to 152/67 mmHg on re-measurement. - Due to persistent elevation despite his current regimen of valsartan/hydrochlorothiazide, the plan is to intensify his therapy. - His current medication will be discontinued, and a new combination pill containing amlodipine 5 mg, valsartan 160 mg, and hydrochlorothiazide 25 mg will be started. Code(s): I10 - Essential (primary) hypertension Category: Medical (2) Type 2 diabetes mellitus with unspecified complications: Comment: - The patient's last HbA1c was significantly elevated at 10.3% in February, despite being on metformin 1000 mg twice daily. - The plan is to get repeat blood work today to check his A1c. - A referral to endocrinology and the addition of another medication, possibly including insulin, will be considered if his sugars remain high. - The patient expressed a strong disinclination towards insulin injections. Code(s): E11.8 - Type 2 diabetes mellitus with unspecified complications Category: Medical (3) Hyperlipidemia: Comment: - The patient has a history of CAD, described as a clog, and a previous LDL of 112. - He was non-adherent with atorvastatin 40 mg. - The importance of this medication for preventing further cardiovascular events was stressed. - A new prescription for atorvastatin 40 mg has been sent, and the patient has been instructed to start taking it. Code(s): E78.5 - Hyperlipidemia, unspecified Category: Medical Qualifiers: Hyperlipidemia type: other hyperlipidemia Qualified Code(s): E78.49 - Other hyperlipidemia (4) Coronary artery disease: Comment: S/p PCI x2 to LAD & Ostial - Continue aspirin therapy & plavix - Follow-up with traffic i manager is scheduled for August. - Encourage regular monitoring of blood pressure and lipids. Code(s): I25.10 - Atherosclerotic heart disease of [place] coronary artery without angina pectoris Category: Medical Qualifiers: Coronary Disease-Associated Artery/Lesion type: [place] artery [place] vs. transplanted heart: [place] heart Associated angina: without angina Qualified Code(s): I25.10 - Atherosclerotic heart disease of [place] coronary artery without angina pectoris Plan: Health Maintenance: - Medication adherence counseling was provided regarding atorvastatin for coronary artery disease and hypercholesterolemia management. - Follow-up scheduled in three months for chronic disease management. Patient was informed and verbally consented to the use of an ambient scribe for clinic note documentation during this visit. Plan I discussed the patient's elevated blood pressure, which was 152/67 mmHg despite his current medication. I informed him that we will be changing his medication to a new combination pill containing amlodipine, valsartan, and hydrochlorothiazide to better control his blood pressure, and he should discard his old pills. We also reviewed his significantly elevated HbA1c of 10.3% from February. I explained the need for repeat blood work today to assess his current status. I informed him that if his sugars remain high, a referral to a media relations specialist (camp dining room attendant) and the potential need for insulin may be necessary, although he expressed a strong aversion to needles. Furthermore, I addressed his non-adherence to atorvastatin for his high cholesterol and coronary artery disease. I emphasized that this medication is crucial to prevent further arterial blockages and have re-prescribed it for him. He was instructed to resume taking it immediately. The patient was instructed to go to the lab for blood work today and that I would call him with the results. A follow-up visit is scheduled for three months. Orders: Orders Hemoglobin A1c Today E11.8 - Type 2 diabetes mellitus with unspecified complications Medications: New uyrwxadbgd-oiuowased-mhhrfifrk 5-160-25 mg 1 tab PO DAILY 90 tabs 0RF atorvastatin (Lipitor) 40 mg PO BEDTIME 90 tabs 0RF Discontinued valsartan-hydrochlorothiazide 160-25 mg Discontinued Reason: Doctor's Order 1 tab PO DAILY 90 tabs 2RF Patient Instructions: - Please go to the lab to have your blood drawn today. - Throw away your current blood pressure pills. 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 - Start taking the atorvastatin medication for your cholesterol again. - Depending on your blood sugar results, you may need a referral to a media relations specialist and could need to start another medication, possibly insulin. - Come back for a follow-up appointment in three months. Please get your appointment slip from the credit front office developer.
[2025-05-21 14:40] VITALS: BP 178/80; PULSE 88; RESP 18; TEMP 36.6; O2SAT 98; BMI 32.5
--- OUTSIDE RECORDS SUMMARY | 2025-05-21 23:25 | XMS_ITS | Data Portability ---
Author Organization [facility], [address] Address [address] [place] [address] Care Team Providers Care Almond Sorter Name Role Phone SURESH, KAREY Primary Care Provider [phone] Assessment No assessment recorded. Plan of Treatment Reminders Order Date Submit Date Provider Last Modified By Organization Details Last Modified Time Details Appointments None recorded. Lab None recorded. Referral None recorded. Procedures None recorded. Surgeries None recorded. Imaging None recorded. Medication Orders betamethaso ne dipropionat e 0.05 % topical ointment 2022 023 [email or web address] [id number], [address] [facility], [place], [address], 14:08:27 Patient TargetsNo targets recorded. Patient Instructions Encounter Date Encounter Id Patient Instructions Last Modified By Organization Details Last Modified Time 10/12/2022 [id number] hives: care instructions Not available 10/12/2022 14:08:22 [place], [place], and [place]: care instructions Not available 10/12/2022 14:08:33 Reason for Referral None Reported. Problems Name Problem SNOMED Code Status Onset Date Resolution Date Notes Provider Name and Address Organization Details Recorded Time Hypertensive disorder 52550758 Active 2022 [facility] 13:39:36 Diabetes mellitus 25006900 Active 2022 [facility] 13:39:54 Problem Notes None recorded. Procedures Surgical History Date Name Laterality Status Provider Name and Address Organization Details Recorded Time 03/02/202 3 placement of stent in cardiac conduit completed [...] Reported Body temperature Respiratory rate Oxygen saturation Heart rate Systolic And Diastolic Provider Name and Address Organization Details Last Updated DateTime 3 180.34 cm 31.8 kg/m2 640360. 06 g 0 97 [degF] 18 /min 100 % 71 /min 133/82 mm[Hg] Sonia Hemphill [facility] 13:42:51 Social History Question Answer Notes LastModified by [employer] Details LastModified Time Tobacco Smoking Status Never Smoker TRINI Jasso [facility] 10/12/2022 13:40:11 Have You Recently Traveled Abroad? No Information not available 10/12/2022 Sex: Unknown Functional Status Question Answer Note LastModified by [employer] Details LastModified Time Do you use any illicit or recreational drugs? No Information not available 10/12/2022 Do you or have you ever used any other forms of tobacco or nicotine? No Information not available 10/12/2022 What is your level of alcohol consumption? None Information not available 10/12/2022 Mental Status None recorded. Family History Relationship [...] 30 mcg/0.3 mL dose 06/03/2022 completed Sonia bcaa [place] - [facility] 10/12/2022 13:38:02 Past Encounters Encounter ID Performer Location Encounter Start Date Encounter Closed Date Diagnosis/Indication Diagnosis SNOMED-CT Code Diagnosis ICD10 Code Diagnosis IMO Codes Diagnosis Note [id number] Elie Lance [place] [address] [address] 10/12/2022 13:25:06 10/12/2022 14:09:25 Contact dermatitis caused by plants 265910631 L25.5 Please follow up with PCP or [...] Recorded Advance Directives Directive None Recorded Payers Insurance Date Sequence Insurance Name Policy Number Policy Goldstein Covered Member ID Goldstein Member ID Guarantor Name 10/12/2022 1 [facility] [id number] Maycol Gracia [id number] Maycol Gracia Notes Date Note Type Note Provider Name and Address Organization Details Recorded Time 10/12/2022 text/html UC Rash/Skin LesionReported by PatientHPIFor location, patient reportsarmsandhands. For duration, patient reports2 weeks.has worked outside, not sure if in contact with poison [place]. No household contacts with simialr rash slightly itchy Elie Lance MD [address] [place], [address], [place] - [facility] 10/12/2022 14:14:25
== END 2025-05-21 15:01 | disposition home or self-care (01) ==
LOC: HO.HMCHD 14:25
PROVIDERS: PCP Family Medicine; Visit Provider Student in an Organized Health Care Education/Training Program
DX: I10 Essential (primary) hypertension (principal); E11.8 Type 2 diabetes mellitus with unspecified complications; E78.49 Other hyperlipidemia; I25.10 Atherosclerotic heart disease of native coronary artery without angina pectoris